=== PATIENT | female | born 1950 | race Caucasian/White ===

== ENCOUNTER 2017-01-12 16:33 | Emergency (ER) | payer MEDICARE, BC ==
--- NOTE | 2017-01-12 19:16 | EDM.PDOC ---
ED HPI GI/ABDOMINAL - General Chief Complaint: Abdominal Pain Stated Complaint: ABDOMINAL PAIN/CONSTIPATION Time Seen by Provider: 01/12/17 18:30 Source: Reports: Patient History Limitations: Reports: No limitations - History of Present Illness INITIAL COMMENTS - FREE TEXT/NARRATIVE: This lady underwent a laparoscopic hysterectomy about 5 days ago but then [place]. She feels like she is urinating out her rectum. She also complains of constipation and says she can have a bowel movement only by taking milk of magnesia or prune juice. She voids just tiny amounts. She said her surgeon told her that there was a lot of scar tissue and he was working very close to the bladder and actually put some kind of the patch on the bladder so she's wondering if there might be a connection between the bladder and the bowel. She said her bowel movements are the color of urine. Since the surgery she's eaten very little because she gets nauseated. She denies any fever. Normally she is very gassy and passes a lot of gas but is not passing any gas now. For pain she has oxycodone but is not taking any because she's afraid of constipation - Related Data Allergies/ADRs: Allergies Allergy/AdvReac Type Severity Reaction Status Date / Time bupropion HCl Allergy Other Verified 08/18/16 18:03 [From Wellbutrin] ciprofloxacin [From Cipro] Allergy Tachycardia Verified 01/12/17 17:53 cyclobenzaprine Allergy Hallucinati Verified 01/12/17 17:53 ons latex Allergy Rash Verified 08/18/16 18:03 Penicillins Allergy Rash Verified 08/18/16 18:03 codeine AdvReac Hallucinati Verified 08/18/16 18:03 ons metformin AdvReac Diarrhea Verified 08/18/16 18:03 Home Meds: Home Meds Lisinopril [Prinivil] 10 mg PO DAILY 07/25/14 [History] Pantoprazole [Protonix] 40 mg PO DAILY PRN 07/25/14 [History] Simvastatin [Zocor] 40 mg PO DAILY 07/25/14 [History] Insulin NPH/Insulin Reg,Human [Novolin 70-30] 70 units SQ BID 08/17/14 [History] Warfarin [Coumadin] 5 mg PO DAILY@1300 #30 tablet 07/20/16 [Rx] oxyCODONE 5 mg PO Q4H PRN #30 tablet 07/20/16 [Rx] Past Medical History HEENT History: Reports: Impaired vision Cardiovascular History: Reports: Blood clots/VTE/DVT, High cholesterol, Hypertension, SOB on exertion Respiratory History: Reports: Bronchitis, recurrent, PE, Pneumonia, recurrent, Sleep apnea Gastrointestinal History: Reports: Cholelithiasis, GERD [employer]CHITECT History: Reports: Dysfunctional uterine bleeding, Musculoskeletal History: Reports: Back pain, chronic, Osteoarthritis Endocrine/Metabolic History: Reports: Diabetes, type II, IDDM, Obesity/BMI 30+ Hematologic History: Reports: Anticoagulation therapy Oncologic (Cancer) History: Reports: Other (see below) Other Oncologic History: endometrial cancer Dermatologic History: Reports: Other (see below) Other Dermatologic History: growth on inner elbow-left.- this was removed. - Infectious Disease History Infectious Disease History: Reports: Chicken pox, Measles, Mumps, Other (see below) Other Infectious Disease History: Infectious hepatitis - Past Surgical History GI Surgical History: Reports: Appendectomy, Cholecystectomy, Colonoscopy, EGD, Hernia repair/other Female Surgical History: Reports: section, D&C, Hysterectomy Social & Family History - Family History Cardiac: Reports: CAD - Tobacco Use Smoking Status *Q: Never Smoker Years of Tobacco use: 50 Packs/Tins Daily: 1 Used Tobacco, but Quit: No Second Hand Smoke Exposure: Yes - Caffeine Use Caffeine Use: Reports: Coffee, Soda, Tea - Alcohol Use Days Per Week of Alcohol Use: 0 - Recreational Drug Use Recreational Drug Use: No ED ROS GENERAL - Review of Systems Review Of Systems: See Below Constitutional: Denies: fever HEENT: Reports: No symptoms Respiratory: Reports: no symptoms Cardiovascular: Reports: No symptoms Endocrine: Reports: no symptoms GI/Abdominal: Reports: Abdominal pain (Lower abdominal pain mostly suprapubic other symptoms as per), Nausea : Reports: no symptoms (See HPI) Musculoskeletal: Reports: no symptoms Skin: Reports: other (She's concerned about a little blister around one of the laparoscopy incisions) Neurological: Reports: no symptoms Psychiatric: Reports: No symptoms Hematologic/Lymphatic: Reports: no symptoms ED EXAM, GI/ABD - Physical Exam Exam: See Below Exam Limited By: No limitations General Appearance: alert, mild distress, obese Eyes: bilateral: normal appearance Ears: normal external exam Throat/Mouth: Normal inspection Neck: normal inspection Respiratory/Chest: lungs clear Cardiovascular: regular rate, rhythm GI/Abdominal: normal bowel sounds, distention (Belly maybe just a little bit distended but she's very very obese.), other (There are several laparoscopy incisions. There is a bulla approximately 1 cm in diameter near the incision in her). No: guarding, rebound Extremities: normal inspection Neurological: alert Psychiatric: normal affect Skin Exam: Warm, Dry Course - Vital Signs Last Recorded V/S: Last Vital Signs Temp 37.2 C 01/12/17 18:01 Pulse 94 01/12/17 22:16 Resp 20 01/12/17 22:16 BP 160/69 H 01/12/17 22:16 Pulse Ox 93 L 01/12/17 22:16 - Orders/Labs/Meds Orders: Active Orders 24 hr Category Date Time Status Abdomen Pelvis w Cont [CT] Stat Exams 01/12/17 18:45 Taken Iopamidol [Isovue-300 (61%)] Med 01/12/17 19:45 Active 150 ml IV . DIRECTED Sodium Chloride 0.9% [Normal Saline] 1,000 ml Med 01/12/17 20:00 Active IV ASDIRECTED Sodium Chloride 0.9% [Saline Flush] Med 01/12/17 19:44 Active 10 ml FLUSH ONETIME PRN Medication Orders Sodium Chloride (Normal Saline) 1,000 mls @ 999 mls/hr IV ASDIRECTED [facility] Last Admin: 01/12/17 20:05 Dose: 999 mls/hr Iopamidol (Isovue-300 (61%)) 150 ml IV . DIRECTED [facility] Last Admin: 01/12/17 21:14 Dose: 150 ml Sodium Chloride (Saline Flush) 10 ml FLUSH ONETIME PRN PRN Reason: PER RADIOLOGY PROTOCOL Last Admin: 01/12/17 21:14 Dose: 10 ml Admin: 01/12/17 20:04 Dose: 10 ml Labs: Laboratory Tests 01/12/17 01/12/17 Range/Units 19:03 19:03 WBC 10.3 (4.5-11.0) K/uL RBC 4.59 (3.30-5.50) M/uL Hgb 11.5 L (12.0-15.0) g/dL Hct 36.0 (36.0-48.0) % MCV 78 L (80-98) fL MCH 25 L (27-31) pg MCHC 32 (32-36) % Plt Count 276 (150-400) K/uL Neut % (Auto) 78 H (36-66) % Lymph % (Auto) 12 L (24-44) % [place] % (Auto) 8 H (2-6) % Eos % (Auto) 1 L (2-4) % Baso % (Auto) 1 (0-1) % Sodium 142 (140-148) mmol/L Potassium 3.5 L (3.6-5.2) mmol/L Chloride 104 (100-108) mmol/L Carbon Dioxide 33 H (21-32) mmol/L Anion Gap 8.5 (5.0-14.0) mmol/L BUN 9 (7-18) mg/dL Creatinine 0.6 (0.6-1.0) mg/dL Est Cr Clr Drug Dosing 72.95 mL/min Estimated GFR (MDRD) > 60 (>60) Glucose 114 H (74-106) mg/dL Calcium 8.6 (8.5-10.1) mg/dL Total Bilirubin 0.4 (0.2-1.0) mg/dL AST 26 D (15-37) U/L ALT 39 D (12-78) U/L Alkaline Phosphatase 59 (46-116) U/L Total Protein 7.1 (6.4-8.2) g/dL Albumin 2.5 L (3.4-5.0) g/dL Globulin 4.6 H (2.3-3.5) g/dL Albumin/Globulin Ratio 0.5 L (1.2-2.2) Meds: Medications Generic Name Dose Route Start Last Admin Trade Name Freq PRN Reason Stop Dose Admin Sodium Chloride 1,000 mls @ 999 mls/hr 01/12/17 20:00 01/12/17 20:05 Normal Saline IV 999 mls/hr ASDIRECTED DEANNA Administration Iopamidol 150 ml 01/12/17 19:45 01/12/17 21:14 Isovue-300 (61%) IV 150 ml . DIRECTED DEANNA Administration Sodium Chloride 10 ml 01/12/17 19:44 01/12/17 21:14 Saline Flush FLUSH 10 ml ONETIME PRN Administration PER RADIOLOGY PROTOCOL Discontinued Medications Generic Name Dose Route Start Last Admin Trade Name Kelle PRN Reason Stop Dose Admin Sodium Chloride 85 mls @ 3 mls/sec 01/12/17 19:44 01/12/17 21:14 Normal Saline IV 01/12/17 19:45 3 mls/sec ONETIME ONE Administration - Radiology Interpretation Free Text/Narrative:: CT scan showed no obvious evidence of an enterovesicular fistula. There was a small amount of fluid and some stranding in the pelvis which possibly could represent an early abscess or just post surgical changes but the patient doesn' t seem to be having those kinds of symptoms. Departure - Departure Time of Disposition: 22:29 Disposition: Home, Self-Care 01 Condition: fair Clinical Impression: Abdominal pain Forms: ED Department Discharge Additional Instructions: Takes a nausea medicine Zofran or L. ondansetron 4 mg one or 2 tablets sublingual every 6-8 hours as needed for nausea. Continue using your own oxycodone. You can take 10 mg every 4 hours. Try using an antacid such as Maalox Plus or Mylanta for stomach irritation. Both of those medicines have simethicone which is the same medicine as and Gas- X. Followup with your Dr. within the next few days. You will probably need an evaluation by a urologist to check for a connection between your bladder and your bowels. That would be called an enterovesicular fistula. - My Orders Last 24 Hours: My Active Orders 01/12/17 18:45 Abdomen Pelvis w Cont [CT] Stat 01/12/17 19:44 Sodium Chloride 0.9% [Saline Flush] 10 ml FLUSH ONETIME PRN 01/12/17 19:45 Iopamidol [Isovue-300 (61%)] 150 ml IV . DIRECTED 01/12/17 20:00 Sodium Chloride 0.9% [Normal Saline] 1,000 ml IV ASDIRECTED - Assessment/Plan Last 24 Hours: My Active Orders 01/12/17 18:45 Abdomen Pelvis w Cont [CT] Stat 01/12/17 19:44 Sodium Chloride 0.9% [Saline Flush] 10 ml FLUSH ONETIME PRN 01/12/17 19:45 Iopamidol [Isovue-300 (61%)] 150 ml IV . DIRECTED 01/12/17 20:00 Sodium Chloride 0.9% [Normal Saline] 1,000 ml IV ASDIRECTED
[2017-01-12] MEDS ORDERED: Iopamidol 612 MG/ML 150 ML Bottle IV SCH (19:45)
[2017-01-12] MEDS ORDERED: Sodium Chloride 0.9% 1,000 ML IV SCH (20:00)
[2017-01-12] MEDS: Sodium Chloride 0.9% 10 ML Syringe FLUSH PRN ×2 (20:04→21:14)
[2017-01-12 22:17] VITALS: BP 160/69
[2017-01-12] MEDS ORDERED: Alum Hydrox/Mag Hydrox/Simeth 15 ML, Lidocaine 2% 15 ML PO ONE ×2 (22:34)
== END 2017-01-12 23:03 | disposition home or self-care (01) ==
LOC: JP.ED 16:33
DX: R10.9 Unspecified abdominal pain (principal); Z90.710 Acquired absence of both cervix and uterus; Z88.6 Allergy status to analgesic agent; Z88.0 Allergy status to penicillin; Z88.1 Allergy status to other antibiotic agents; Z91.040 Latex allergy status; Z79.01 Long term (current) use of anticoagulants; Z79.4 Long term (current) use of insulin; Z79.899 Other long term (current) drug therapy; Z86.718 Personal history of other venous thrombosis and embolism; I10 Essential (primary) hypertension; E78.00 Pure hypercholesterolemia, unspecified; K21.9 Gastro-esophageal reflux disease without esophagitis; G47.30 Sleep apnea, unspecified; M19.90 Unspecified osteoarthritis, unspecified site; E11.9 Type 2 diabetes mellitus without complications; E66.9 Obesity, unspecified; Z68.30 Body mass index [BMI] 30.0-30.9, adult; Z87.891 Personal history of nicotine dependence
CPT/HCPCS: 36415; 74177; 80053; 85025; A9270; J7030; J7040; J7050; 99283; 99284-25

== ENCOUNTER 2017-02-19 11:47 | Inpatient (IN) | payer MEDICARE, BC ==
[2017-02-19] MEDS ORDERED: Acetaminophen 325 MG Tab PO ONE (12:37)
[2017-02-19] MEDS ORDERED: Sodium Chloride 0.9% 1,000 ML IV SCH ×3 (12:45→19:45)
--- NOTE | 2017-02-19 12:48 | EDM.PDOC ---
ED HPI Skin/Rash - General Chief Complaint: Skin Complaint Stated Complaint: INFECTION ON ABD Time Seen by Provider: 02/19/17 12:05 Source: Reports: Patient, Family History Limitations: Reports: No limitations - History of Present Illness INITIAL COMMENTS - FREE TEXT/NARRATIVE: pt arrived after spiking a fever at home. This came on suddenly and she developed marked chilling. She developed a tightness in the left side of her abdoman. She has been having normal bms. She has occassional burning when she passed her urine. She had a laproscopeic hysterectomy 6- 8 weeks ago. She has ca of the uterus. She has not had a cough or increased sob. Timing: Reports: better Location, Skin: Reports: abdomen, other ( The pain she had seemed in the abdomanal wall. ) Severity: moderate Known Identified Source: no - Related Data Allergies Allergy/AdvReac Type Severity Reaction Status Date / Time bupropion HCl Allergy Other Verified 02/19/17 12:10 [From Wellbutrin] latex Allergy Rash Verified 02/19/17 12:10 Penicillins Allergy Rash Verified 02/19/17 12:10 ciprofloxacin [From Cipro] AdvReac Tachycardia Verified 02/19/17 12:10 codeine AdvReac Hallucinati Verified 02/19/17 12:10 ons cyclobenzaprine AdvReac Hallucinati Verified 02/19/17 12:10 ons metformin AdvReac Diarrhea Verified 02/19/17 12:10 Home Meds: Ambulatory Orders Medication Instructions Recorded Confirmed Lisinopril [Prinivil] 10 mg PO DAILY 07/25/14 02/19/17 Pantoprazole [ProTONIX] 40 mg PO DAILY PRN 07/25/14 02/19/17 Simvastatin [Zocor] 40 mg PO DAILY 07/25/14 02/19/17 Insulin NPH/Insulin Reg,Human 70 units SQ BID 08/17/14 02/19/17 [Novolin 70-30] Warfarin [Coumadin] 5 mg PO DAILY@1300 #30 tablet 07/20/16 02/19/17 Past Medical History HEENT History: Reports: Impaired vision Cardiovascular History: Reports: Blood clots/VTE/DVT, High cholesterol, Hypertension, SOB on exertion Respiratory History: Reports: Bronchitis, recurrent, PE, Pneumonia, recurrent, Sleep apnea Gastrointestinal History: Reports: Cholelithiasis, GERD [employer] 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 - Infectious Disease History Infectious Disease History: Reports: C-difficile, Measles, Mumps Other Infectious Disease History: Infectious hepatitis - Past Surgical History GI Surgical History: Reports: Appendectomy, Cholecystectomy, Colonoscopy, EGD, Hernia repair/other Female Surgical History: Reports: section, D&C, Hysterectomy Social & Family History - Family History Cardiac: Reports: CAD - Tobacco Use Smoking Status *Q: Former Smoker Years of Tobacco use: 50 Packs/Tins Daily: 1 Used Tobacco, but Quit: Yes Month Tobacco Last Used: July 2016 Second Hand Smoke Exposure: Yes - Caffeine Use Caffeine Use: Reports: Coffee, Soda - Alcohol Use Days Per Week of Alcohol Use: 0 - Recreational Drug Use Recreational Drug Use: No ED ROS GENERAL - Review of Systems Review Of Systems: See Below Constitutional: Reports: fever, chills, malaise, fatigue HEENT: Reports: No symptoms Respiratory: Reports: No Symptoms Cardiovascular: Reports: No symptoms Endocrine: Reports: no symptoms GI/Abdominal: Reports: Abdominal pain, Other ( This seemed to be more the skin on the left side. ) : Reports: dysuria Musculoskeletal: Reports: no symptoms Skin: Reports: other ( The left side of her abdoman is red and hot. ) Neurological: Reports: No Symptoms Psychiatric: Reports: Anxiety ED EXAM, SKIN/RASH Exam: See Below Text/Narrative:: Pt arrived with shaking chills and vomiting. This hit her all of a sudden this am and she was found to have a temp of 40. She noted that the left side of her abdoman was hot and felt very tight. Exam Limited By: No limitations General Appearance: alert, anxious, moderate distress Ears: normal TMs Nose: normal inspection Throat/Mouth: Normal inspection Head: atraumatic Neck: normal inspection Respiratory/Chest: no respiratory distress Cardiovascular: regular rate, rhythm, tachycardia GI/Abdominal: other (pt does not have alot of deep tenderness in the abdoman. On the left side the skin was red, hot and very tender to the touch) Rectal (Female) Exam: Deferred Back Exam: normal inspection Extremities: normal inspection Neurological: alert, oriented, normal cognition Psychiatric: normal affect Course - Vital Signs Last Recorded V/S: Last Vital Signs Temp 39.2 C H 02/19/17 15:20 Pulse 121 H 02/19/17 15:20 Resp 22 H 02/19/17 15:20 BP 158/78 H 02/19/17 15:20 Pulse Ox 95 02/19/17 15:20 - Orders/Labs/Meds Orders: Active Orders 24 hr Category Date Time Status CULTURE BLOOD [BC] Urgent Lab 02/19/17 12:50 Received CULTURE BLOOD [BC] Urgent Lab 02/19/17 13:00 Received Iopamidol [Isovue-300 (61%)] Med 02/19/17 14:03 Active 150 ml IV . DIRECTED PRN Sodium Chloride 0.9% [Normal Saline] 1,000 ml Med 02/19/17 12:45 Active IV ASDIRECTED Sodium Chloride 0.9% [Normal Saline] 1,000 ml Med 02/19/17 15:00 Active IV ASDIRECTED Sodium Chloride 0.9% [Normal Saline] 85 ml Med 02/19/17 14:15 Active IV ASDIRECTED Blood Culture x2 Reflex Set [OM.PC] Urgent Oth 02/19/17 12:33 Ordered Medication Orders Sodium Chloride (Normal Saline) 1,000 mls @ 500 mls/hr IV ASDIRECTED DEANNA Last Admin: 02/19/17 13:27 Dose: 500 mls/hr Sodium Chloride (Normal Saline) 85 mls @ 3.5 mls/sec IV ASDIRECTED DEANNA Last Admin: 02/19/17 14:18 Dose: 3.5 mls/sec Sodium Chloride (Normal Saline) 1,000 mls @ 999 mls/hr IV ASDIRECTED DEANNA Iopamidol (Isovue-300 (61%)) 150 ml IV . DIRECTED PRN PRN Reason: RADIOLOGY EXAM Stop: 02/20/17 14:04 Last Admin: 02/19/17 14:18 Dose: 150 ml Labs: Laboratory Tests 02/19/17 02/19/17 02/19/17 Range/Units 12:50 12:50 12:50 WBC 15.7 H (4.5-11.0) K/uL RBC 5.30 (3.30-5.50) M/uL Hgb 13.6 D (12.0-15.0) g/dL Hct 41.7 (36.0-48.0) % MCV 79 L (80-98) fL MCH 26 L (27-31) pg MCHC 33 (32-36) % Plt Count 243 (150-400) K/uL Neut % (Auto) 90 H (36-66) % Lymph % (Auto) 5 L (24-44) % [place] % (Auto) 5 (2-6) % Eos % (Auto) 0 L (2-4) % Baso % (Auto) 0 (0-1) % PT (9.5-12.0) sec INR (0.80-1.20) Sodium 141 (140-148) mmol/L Potassium 4.0 (3.6-5.2) mmol/L Chloride 102 (100-108) mmol/L Carbon Dioxide 33 H (21-32) mmol/L Anion Gap 10.0 (5.0-14.0) mmol/L BUN 11 (7-18) mg/dL Creatinine 0.7 (0.6-1.0) mg/dL Est Cr Clr Drug Dosing 59.65 mL/min Estimated GFR (MDRD) > 60 (>60) Glucose 107 H (74-106) mg/dL Lactic Acid (0.4-2.0) mmol/L Calcium 8.8 (8.5-10.1) mg/dL Total Bilirubin 0.9 D (0.2-1.0) mg/dL AST 15 (15-37) U/L ALT 24 (12-78) U/L Alkaline Phosphatase 95 (46-116) U/L C-Reactive Protein 1.73 H (0.0-0.3) mg/dL Total Protein 7.5 (6.4-8.2) g/dL Albumin 3.2 L (3.4-5.0) g/dL Globulin 4.3 H (2.3-3.5) g/dL Albumin/Globulin Ratio 0.7 L (1.2-2.2) Urine Color Urine Appearance Urine pH (4.5-8.0) Ur Specific [place] (1.008-1.030) Urine Protein (NEGATIVE) mg/dL Urine Glucose (UA) (NEGATIVE) mg/dL Urine Ketones (NEGATIVE) mg/dL Urine Occult Blood (NEGATIVE) Urine Nitrite (NEGATIVE) Urine Bilirubin (NEGATIVE) Urine Urobilinogen (NORMAL) mg/dL Ur Leukocyte Esterase (NEGATIVE) Urine RBC (0-5) Urine WBC (0-5) Ur Epithelial Cells Amorphous Sediment Urine Bacteria Urine Mucus 02/19/17 02/19/17 02/19/17 Range/Units 12:50 13:59 14:06 WBC (4.5-11.0) K/uL RBC (3.30-5.50) M/uL Hgb (12.0-15.0) g/dL Hct (36.0-48.0) % MCV (80-98) fL MCH (27-31) pg MCHC (32-36) % Plt Count (150-400) K/uL Neut % (Auto) (36-66) % Lymph % (Auto) (24-44) % [place] % (Auto) (2-6) % Eos % (Auto) (2-4) % Baso % (Auto) (0-1) % PT 17.2 H (9.5-12.0) sec INR 1.60 H (0.80-1.20) Sodium (140-148) mmol/L Potassium (3.6-5.2) mmol/L Chloride (100-108) mmol/L Carbon Dioxide (21-32) mmol/L Anion Gap (5.0-14.0) mmol/L BUN (7-18) mg/dL Creatinine (0.6-1.0) mg/dL Est Cr Clr Drug Dosing mL/min Estimated GFR (MDRD) (>60) Glucose (74-106) mg/dL Lactic Acid 2.6 H (0.4-2.0) mmol/L Calcium (8.5-10.1) mg/dL Total Bilirubin (0.2-1.0) mg/dL AST (15-37) U/L ALT (12-78) U/L Alkaline Phosphatase (46-116) U/L C-Reactive Protein (0.0-0.3) mg/dL Total Protein (6.4-8.2) g/dL Albumin (3.4-5.0) g/dL Globulin (2.3-3.5) g/dL Albumin/Globulin Ratio (1.2-2.2) Urine Color Yellow Urine Appearance Clear Urine pH 8.0 (4.5-8.0) Ur Specific [place] 1.015 (1.008-1.030) Urine Protein Negative (NEGATIVE) mg/dL Urine Glucose (UA) Normal (NEGATIVE) mg/dL Urine Ketones Negative (NEGATIVE) mg/dL Urine Occult Blood Negative (NEGATIVE) Urine Nitrite Negative (NEGATIVE) Urine Bilirubin Negative (NEGATIVE) Urine Urobilinogen Normal (NORMAL) mg/dL Ur Leukocyte Esterase Negative (NEGATIVE) Urine RBC 0-5 (0-5) Urine WBC 0-5 (0-5) Ur Epithelial Cells Rare Amorphous Sediment Not seen Urine Bacteria Few Urine Mucus Not seen Meds: Medications Generic Name Dose Route Start Last Admin Trade Name Freq PRN Reason Stop Dose Admin Sodium Chloride 1,000 mls @ 500 mls/hr 02/19/17 12:45 02/19/17 13:27 Normal Saline IV 500 mls/hr ASDIRECTED DEANNA Administration Sodium Chloride 85 mls @ 3.5 mls/sec 02/19/17 14:15 02/19/17 14:18 Normal Saline IV 3.5 mls/sec ASDIRECTED DEANNA Administration Sodium Chloride 1,000 mls @ 999 mls/hr 02/19/17 15:00 Normal Saline IV ASDIRECTED DEANNA Iopamidol 150 ml 02/19/17 14:03 02/19/17 14:18 Isovue-300 (61%) IV 02/20/17 14:04 150 ml . DIRECTED PRN Administration RADIOLOGY EXAM Discontinued Medications Generic Name Dose Route Start Last Admin Trade Name Freq PRN Reason Stop Dose Admin Acetaminophen 650 mg 02/19/17 12:37 02/19/17 13:28 Tylenol PO 02/19/17 12:38 650 mg NOW ONE Administration Cefazolin Sodium/Dextrose 2 gm 50 mls @ 100 mls/hr 02/19/17 14:49 02/19/17 15 :18 / Premix IV 02/19/17 15:18 100 mls/hr ONETIME ONE Administration Ondansetron HCl 4 mg 02/19/17 13:21 02/19/17 13:29 Zofran IVPUSH 02/19/17 13:22 4 mg ONETIME ONE Administration - Re-Assessments/Exams Free Text/Narrative Re-Assessment/Exam: 02/19/17 15:33 Pt had a cat scan of the abdoman which was neg. Her lactic acid is 2.6. fluids were startyed and a 2nd liter was started. She was given ancef 2 gm iv. She will be admitted to the unit. Departure - Departure Time of Disposition: 15:35 Disposition: Admitted As Inpatient 66 Condition: fair Clinical Impression: Sepsis, Cellulitis of abdominal wall, Cancer of uterus Referrals: Jim Rai MD [Primary Care Provider] - Forms: ED Department Discharge Care Plan Goals: admit to Dr ruff. - My Orders Last 24 Hours: My Active Orders 02/19/17 12:33 Blood Culture x2 Reflex Set [OM.PC] Urgent 02/19/17 12:45 Sodium Chloride 0.9% [Normal Saline] 1,000 ml IV ASDIRECTED 02/19/17 12:50 CULTURE BLOOD [BC] Urgent 02/19/17 13:00 CULTURE BLOOD [BC] Urgent 02/19/17 14:03 Iopamidol [Isovue-300 (61%)] 150 ml IV . DIRECTED PRN 02/19/17 14:15 Sodium Chloride 0.9% [Normal Saline] 85 ml IV ASDIRECTED 02/19/17 15:00 Sodium Chloride 0.9% [Normal Saline] 1,000 ml IV ASDIRECTED - Assessment/Plan Last 24 Hours: My Active Orders 02/19/17 12:33 Blood Culture x2 Reflex Set [OM.PC] Urgent 02/19/17 12:45 Sodium Chloride 0.9% [Normal Saline] 1,000 ml IV ASDIRECTED 02/19/17 12:50 CULTURE BLOOD [BC] Urgent 02/19/17 13:00 CULTURE BLOOD [BC] Urgent 02/19/17 14:03 Iopamidol [Isovue-300 (61%)] 150 ml IV . DIRECTED PRN 02/19/17 14:15 Sodium Chloride 0.9% [Normal Saline] 85 ml IV ASDIRECTED 02/19/17 15:00 Sodium Chloride 0.9% [Normal Saline] 1,000 ml IV ASDIRECTED
[2017-02-19] MEDS ORDERED: Ondansetron 4 MG/2 ML SDV IVPUSH ONE (13:21)
[2017-02-19] MEDS ORDERED: Iopamidol 612 MG/ML 150 ML Bottle IV PRN (14:03)
--- NOTE | 2017-02-19 14:23 | CR ---
Heart size upper limits of normal. Pulmonary vasculature upper limits of normal. Obscuration left he midiaphragm. This could be due to atelectasis infiltrate and/or small pleural effusion.
[2017-02-19] MEDS ORDERED: ceFAZolin 2 GM in Premix Bag 1 BAG IV ONE (14:49)
--- NOTE | 2017-02-19 14:53 | CT ---
CT abdomen and pelvis. Indication: Pain. Comparison: 01/12/2017. Total DLP 2181 Finds: Minimal atelectasis in the lung bases. Fatty infiltration of the liver with hepatomegaly. Cho lecystectomy change. Spleen within normal limits. Left kidney enhances normally. No hydronephrosis. No hydronephrosis right kidney. Normal enhancement right kidney. No dilated loops of small bowel. Bl adder unremarkable. Prior hysterectomy change. Moderate fecal residual. Atherosclerotic nonaneurysma l aorta. There are a few air-fluid levels within the small bowel however and fluid. No dilatation. T here is a mesh hernia repair. There is mesenteric fluid and edema which is mild.. This is decreased in the interval. The fluid collection in the cul-de-sac has resolved. Probably hemangioma at T11. Th e appendix is nonvisualized. Impression: 1. A few air-fluid levels within small bowel loops with fluid. No dilatation. Correlate for gastroen teritis. 2. Mild amount of mesenteric edema and fluid which has decreased in the interval. This may be postop erative.
--- NOTE | 2017-02-19 16:06 | PCM.HP ---
H&P History of Present Illness - General Date of Service: 02/19/17 Admit Problem/Dx: Admission Diagnosis/Problem Admission Diagnosis/Problem Cellulitis Source of Information: Patient, Family, Old records, Provider, RN notes reviewed History Limitations: Reports: No limitations - History of Present Illness Initial Comments - Free Text/Narative: This patient is a 66-year-old woman who is admitted through the emergency department with weakness, fever, nausea and vomiting, secondary to abdominal wall cellulitis and sepsis. She has a complicated past medical history including recent deep vein thrombosis and pulmonary emboli. Anticoagulation was complicated by vaginal bleeding and on evaluation was found to have a uterine mass. She has undergone hysterectomy and was found to have uterine carcinoma. She also has a history of previous lymphoma, with no evidence of recurrence. She was feeling well until early this morning when she noted pain in her left lower quadrant abdominal wall. This was associated with fever, chills, weakness, nausea and vomiting. On evaluation in the emergency department she has an area of erythema with increased warmth and tenderness in her left lower quadrant of the abdominal wall. White blood cell count is elevated and associated with tachycardia, fever, and elevation in lactic acid. Pelvic Pain Score (Numeric/FACES): 2 - Related Data Allergies/Adverse Reactions: Allergies Allergy/AdvReac Type Severity Reaction Status Date / Time bupropion HCl Allergy Other Verified 02/19/17 12:10 [From Wellbutrin] latex Allergy Rash Verified 02/19/17 12:10 Penicillins Allergy Rash Verified 02/19/17 12:10 ciprofloxacin [From Cipro] AdvReac Tachycardia Verified 02/19/17 12:10 codeine AdvReac Hallucinati Verified 02/19/17 12:10 ons cyclobenzaprine AdvReac Hallucinati Verified 02/19/17 12:10 ons metformin AdvReac Diarrhea Verified 02/19/17 12:10 Home Medications: Home Meds Lisinopril [Prinivil] 10 mg PO DAILY 07/25/14 [History] Pantoprazole [ProTONIX] 40 mg PO DAILY PRN 07/25/14 [History] Simvastatin [Zocor] 40 mg PO DAILY 07/25/14 [History] Insulin NPH/Insulin Reg,Human [Novolin 70-30] 70 units SQ BID 08/17/14 [History] Warfarin [Coumadin] 5 mg PO DAILY@1300 #30 tablet 07/20/16 [Rx] Past Medical History HEENT History: Reports: Impaired vision Cardiovascular History: Reports: Blood clots/VTE/DVT, High cholesterol, Hypertension, SOB on exertion Respiratory History: Reports: Bronchitis, recurrent, PE, Pneumonia, recurrent, Sleep apnea Gastrointestinal History: Reports: Cholelithiasis, GERD TUBE CARRIER History: Reports: Dysfunctional uterine bleeding, Musculoskeletal History: Reports: Back pain, chronic, Osteoarthritis Endocrine/Metabolic History: Reports: Diabetes, type II, IDDM, Obesity/BMI 30+ Hematologic History: Reports: Anticoagulation therapy Oncologic (Cancer) History: Reports: Other (see below) Other Oncologic History: endometrial cancer Dermatologic History: Reports: Other (see below) Other Dermatologic History: growth on inner elbow-left.- this was removed. - Infectious Disease History Infectious Disease History: Reports: C-difficile, Measles, Mumps Other Infectious Disease History: Infectious hepatitis - Past Surgical History GI Surgical History: Reports: Appendectomy, Cholecystectomy, Colonoscopy, EGD, Hernia repair/other Female Surgical History: Reports: section, D&C, Hysterectomy Social & Family History - Family History Cardiac: Reports: CAD - Tobacco Use Smoking Status *Q: Former Smoker Years of Tobacco use: 50 Packs/Tins Daily: 1 Used Tobacco, but Quit: Yes Month Tobacco Last Used: July 2016 Second Hand Smoke Exposure: Yes - Caffeine Use Caffeine Use: Reports: Coffee, Soda - Alcohol Use Days Per Week of Alcohol Use: 0 - Recreational Drug Use Recreational Drug Use: No H&P Review of Systems - Review of Systems: Review Of Systems: See Below General: Reports: fever, chills, weakness, diaphoresis, decreased appetite HEENT: Reports: no symptoms Pulmonary: Reports: No Symptoms Cardiovascular: Reports: no symptoms Gastrointestinal: Reports: Anorexia, Nausea, Vomiting, Other (Pain and tenderness in the abdominal wall). Denies: Abdominal pain, Constipation, Diarrhea, Difficulty swallowing, Distension, Flatus Genitourinary: Reports: no symptoms Musculoskeletal: Reports: back pain Skin: Reports: erythema, other (Tenderness abdominal wall in the area of erythema) Psychiatric: Reports: no symptoms Neurological: Reports: No Symptoms Hematologic/Lymphatic: Reports: no symptoms Immunologic: Reports: no symptoms Exam - Exam Exam: See Below - Vital Signs Vital Signs: Last Vital Signs Temp 102.6 F H 02/19/17 15:20 Pulse 121 H 04/19/17 15:20 Resp 22 H 02/19/17 15:20 BP 158/78 H 02/19/17 15:20 Pulse Ox 95 02/19/17 15:20 Weight: 326 lb 4.546 oz - Exam Quality Assessment: DVT prophylaxis General: alert, oriented, cooperative, moderate distress HEENT: Conjunctiva clear, EOMI, Hearing intact, Mucosa moist & pink, Nares patent, Normal nasal septum, Posterior pharynx clear, Pupils equal, Pupils reactive Neck: supple, trachea midline, +2 carotid pulse wo bruit Lungs: Clear to auscultation, Normal respiratory effort Cardiovascular: regular rhythm, normal S1, normal S2, tachycardia. No: irregular rhythm, bradycardia, systolic murmur, diastolic murmur Abdomen: normal bowel sounds, soft, other (Erythema and tenderness to palpation in the skin of the left lower quadrant) Extremities: normal inspection. No: edema Skin: warm, dry, intact Neurological: cranial nerves intact, strength equal bilateral, normal speech, normal tone, sensation intact. No: focal deficit Neuro Extensive - Mental Status: alert, oriented x3, normal mood/affect, normal cognition, memory intact - Patient Data Result Diagrams: 02/19/17 12:50 02/19/17 12:50 *Q Meaningful Use (ADM) - VTE *Q VTE Criteria *Q: - VTE Risk Assess *Q Each Risk Factor Represents 1 Point: Sepsis, Less than 1 Month Total Score 1 Point Risk Factors: 1 Each Risk Factor Represents 2 Points: Age 60 - 74 Years, Previous Malignancy Total Score 2 Point Risk Factors: 4 Each Risk Factor Represents 3 Points: BMI Greater than 50 (Venous Stasis Syndrome), History Superficial Venous Thrombosis, DVT or PE Total Score 3 Point Risk Factors: 6 Each Risk Factor Represents 5 Points: None Total Score 5 Point Risk Factors: 0 Venous Thromboembolism Risk Factor Score *Q: 11 - Stroke *Q Stroke Criteria *Q: - AMI *Q AMI Criteria *Q: Problem List Initiated/Reviewed/Updated: Yes Orders Last 24hrs: Active Orders 24 hr Category Date Time Status Resuscitation Status Routine Resus Stat 02/19/17 15:36 Ordered Medication Orders Sodium Chloride (Normal Saline) 1,000 mls @ 500 mls/hr IV ASDIRECTED DEANNA Last Admin: 02/19/17 13:27 Dose: 500 mls/hr Sodium Chloride (Normal Saline) 85 mls @ 3.5 mls/sec IV ASDIRECTED DEANNA Last Admin: 02/19/17 14:18 Dose: 3.5 mls/sec Sodium Chloride (Normal Saline) 1,000 mls @ 999 mls/hr IV ASDIRECTED DEANNA Iopamidol (Isovue-300 (61%)) 150 ml IV . DIRECTED PRN PRN Reason: RADIOLOGY EXAM Stop: 02/20/17 14:04 Last Admin: 02/19/17 14:18 Dose: 150 ml Assessment/Plan Comment:: ASSESSMENT AND PLAN SEPSIS SECONDARY TO ABDOMINAL WALL CELLULITIS-occurring in this 66-year-old woman with a known history of type 2 diabetes mellitus. Area of cellulitis is under the pannus in the left lower quadrant of the abdominal wall. Symptoms came on abruptly and she has become acutely ill within a relatively short period of time. CT scan of the abdomen and pelvis shows no evidence of fluid collection for possible abscess in the abdominal wall. There is evidence of sepsis with significant fever, tachycardia, and elevation in lactic acid level. -Admit to the intensive care unit for close observation, monitoring, and management. -Blood cultures are pending -Aggressive IV fluid replacement for management of sepsis -Because of diabetes will begin expanded IV antibiotic coverage with vancomycin and meropenem TYPE 2 DIABETES MELLITUS -Continue home insulins regimen -4 times a day glucometers -Low-dose sliding scale NovoLog RECENT HISTORY OF DEEP VEIN THROMBOSIS AND PULMONARY EMBOLISM-current INR obtained today in the emergency Department is subtherapeutic -Lovenox 150 mg subcutaneous every 12 hours until INR is within therapeutic range -Warfarin 7.5 mg by mouth today -INR in a.m. MAINTENANCE ISSUES -DVT prophylaxis; current therapeutic dose of Lovenox should provide adequate DVT prophylaxis -GI prophylaxis; continue outpatient PPI therapy -Luis catheter; none indicated -Nutrition; consistent carb diet -Nicotine dependence; not required CODE STATUS-FULL CODE ADMISSION STATUS-patient will be admitted to inpatient status, expect at least a 2 night hospital stay for evaluation and management of problems as outlined above. At the time of this admission I do not reasonably expected evaluation and management of this problem will require more than a 96 hour hospital stay. DISPOSITION-anticipate discharge to home after the hospital stay. PRIMARY CARE PROVIDER-Dr. Rai
[2017-02-19] MEDS ORDERED: Magnesium Hydroxide 400 MG/5 ML Susp 30 ML Cup PO PRN (16:44)
[2017-02-19] MEDS ORDERED: Polyethylene Glycol 3350 Powder 17 GM Packet PO PRN (16:44)
[2017-02-19] MEDS ORDERED: Glucose Gel 15 GM in 37.5 GM Tube PO PRN (16:44)
[2017-02-19] MEDS ORDERED: Vancomycin 1 GM SDV IV SCH (16:44)
[2017-02-19] MEDS ORDERED: Docusate Sodium 100 MG Cap PO PRN (16:44)
[2017-02-19] MEDS ORDERED: Pantoprazole 40 MG Tab.CR PO PRN (16:44)
[2017-02-19] MEDS ORDERED: Albuterol 0.083% 2.5 MG/3 ML Neb Soln NEB PRN (16:44)
[2017-02-19] MEDS ORDERED: Enoxaparin 120 MG/0.8 ML Syringe SUBCUT SCH (16:44)
[2017-02-19] MEDS ORDERED: 50% Dextrose in Water 50 ML Syringe IV PRN (16:44)
[2017-02-19] MEDS ORDERED: Sodium Chloride 0.9% 500 ML IV SCH (17:15)
[2017-02-19] MEDS: oxyCODONE 5 MG Tab PO PRN (17:28)
[2017-02-19] MEDS: Enoxaparin 80 MG/0.8 ML Syringe SUBCUT SCH (17:32)
[2017-02-19] MEDS ORDERED: Meropenem 1 GM in Sodium Chloride 0.9% 100 ML IV SCH (18:00)
[2017-02-19] MEDS ORDERED: Warfarin 2.5 MG Tab PO ONE (18:00)
[2017-02-19] MEDS: Acetaminophen 325 MG Tab PO PRN (20:35)
[2017-02-19] MEDS: Insulin NPH/Insulin Regular,Human 70-30 100 Units/ML 10 ML Vial SUBCUT SCH (20:57)
[2017-02-19] MEDS: Insulin Aspart 100 Units/ML 3 ML Pen SUBCUT SCH (21:00)
[2017-02-19] MEDS: Ondansetron 4 MG/2 ML SDV IV PRN (21:04)
[2017-02-20] MEDS: oxyCODONE 5 MG Tab PO PRN ×3 (01:15→21:04)
[2017-02-20] MEDS: Acetaminophen 325 MG Tab PO PRN ×3 (01:19→21:04)
[2017-02-20] MEDS: Enoxaparin 80 MG/0.8 ML Syringe SUBCUT SCH (05:32)
[2017-02-20] MEDS: Insulin Aspart 100 Units/ML 3 ML Pen SUBCUT SCH ×3 (08:46→21:11)
[2017-02-20] MEDS: Insulin NPH/Insulin Regular,Human 70-30 100 Units/ML 10 ML Vial SUBCUT SCH ×2 (08:47→21:09)
[2017-02-20] MEDS: Lisinopril 10 MG Tab PO SCH (08:48)
[2017-02-20] MEDS: Simvastatin 20 MG Tab PO SCH (08:48)
[2017-02-20] MEDS ORDERED: Potassium Chloride 20 MEQ Tab.ER PO ONE (09:00)
--- NOTE | 2017-02-20 10:41 | PCM.PN ---
- General Info Date of Service: 02/20/17 Functional Status: Reports: pain controlled, tolerating diet, urinating - Review of Systems General: Reports: Fever, Weakness. Denies: Chills Pulmonary: Reports: no symptoms Cardiovascular: Reports: No Symptoms Gastrointestinal: Reports: No symptoms Skin: Reports: other (Abdominal wall cellulitis) Systems Review Comment:: This patient has improved significantly since admission, heart rate has come down and lactic acid level has normalized. Fever curve also has improved and she is experiencing much less pain in the area of cellulitis in the abdominal wall. Currently tolerating a diet and urinating without difficulty. - Patient Data Vitals - most recent: Last Vital Signs Temp 98.7 F 02/20/17 08:00 Pulse 84 02/20/17 08:00 Resp 20 02/20/17 08:00 BP 118/56 L 02/20/17 08:48 Pulse Ox 90 L 02/20/17 08:00 Weight - most recent: 325 lb I&O - last 24 hours: Intake & Output 02/19/17 02/20/17 02/20/17 22:59 06:59 14:59 Intake Total 600 1517 400 Output Total 900 700 Balance -300 817 400 Lab Results last 24 hrs: Laboratory Results - last 24 hr 02/19/17 02/20/17 02/20/17 Range/Units 20:00 05:00 05:11 WBC 10.3 (4.5-11.0) K/uL RBC 4.94 (3.30-5.50) M/uL Hgb 12.5 (12.0-15.0) g/dL Hct 39.3 (36.0-48.0) % MCV 80 (80-98) fL MCH 25 L (27-31) pg MCHC 32 (32-36) % Plt Count 219 (150-400) K/uL Neut % (Auto) 87 H (36-66) % Lymph % (Auto) 7 L (24-44) % [place] % (Auto) 6 (2-6) % Eos % (Auto) 0 L (2-4) % Baso % (Auto) 0 (0-1) % PT (9.5-12.0) sec INR (0.80-1.20) Sodium (140-148) mmol/L Potassium (3.6-5.2) mmol/L Chloride (100-108) mmol/L Carbon Dioxide (21-32) mmol/L Anion Gap (5.0-14.0) mmol/L BUN (7-18) mg/dL Creatinine (0.6-1.0) mg/dL Est Cr Clr Drug Dosing mL/min Estimated GFR (MDRD) (>60) Glucose (74-106) mg/dL Lactic Acid 1.4 1.1 (0.4-2.0) mmol/L Calcium (8.5-10.1) mg/dL Total Bilirubin (0.2-1.0) mg/dL AST (15-37) U/L ALT (12-78) U/L Alkaline Phosphatase (46-116) U/L Total Protein (6.4-8.2) g/dL Albumin (3.4-5.0) g/dL Globulin (2.3-3.5) g/dL Albumin/Globulin Ratio (1.2-2.2) 02/20/17 02/20/17 Range/Units 05:11 05:11 WBC (4.5-11.0) K/uL RBC (3.30-5.50) M/uL Hgb (12.0-15.0) g/dL Hct (36.0-48.0) % MCV (80-98) fL MCH (27-31) pg MCHC (32-36) % Plt Count (150-400) K/uL Neut % (Auto) (36-66) % Lymph % (Auto) (24-44) % [place] % (Auto) (2-6) % Eos % (Auto) (2-4) % Baso % (Auto) (0-1) % PT 21.8 H (9.5-12.0) sec INR 2.01 H (0.80-1.20) Sodium 141 (140-148) mmol/L Potassium 3.5 L (3.6-5.2) mmol/L Chloride 103 (100-108) mmol/L Carbon Dioxide 32 (21-32) mmol/L Anion Gap 9.5 (5.0-14.0) mmol/L BUN 12 (7-18) mg/dL Creatinine 0.6 (0.6-1.0) mg/dL Est Cr Clr Drug Dosing 69.60 mL/min Estimated GFR (MDRD) > 60 (>60) Glucose 105 (74-106) mg/dL Lactic Acid (0.4-2.0) mmol/L Calcium 8.1 L (8.5-10.1) mg/dL Total Bilirubin 0.9 (0.2-1.0) mg/dL AST 15 (15-37) U/L ALT 22 (12-78) U/L Alkaline Phosphatase 81 (46-116) U/L Total Protein 6.6 (6.4-8.2) g/dL Albumin 2.7 L (3.4-5.0) g/dL Globulin 3.9 H (2.3-3.5) g/dL Albumin/Globulin Ratio 0.7 L (1.2-2.2) Med Orders - Current: Current Medications Acetaminophen (Tylenol) 650 mg PO Q4H PRN PRN Reason: Pain (Mild 1-3)/fever Last Admin: 02/20/17 06:42 Dose: 650 mg Albuterol (Proventil Neb Soln) 2.5 mg NEB Q4H PRN PRN Reason: Shortness Of Breath/wheezing Dextrose (Glutose 15) 15 gm PO ONETIME PRN PRN Reason: Hypoglycemia Dextrose/Water (Dextrose 50% In Water) 50 ml IV ONETIME PRN PRN Reason: Hypoglycemia Docusate Sodium (Colace) 100 mg PO BID PRN PRN Reason: Constipation Enoxaparin Sodium (Lovenox) 150 mg SUBCUT Q12H [facility] Last Admin: 02/20/17 05:32 Dose: 150 mg Meropenem 1 gm/ Sodium (Chloride) 50 mls @ 100 mls/hr IV Q8H [facility] Last Admin: 02/20/17 10:19 Dose: 100 mls/hr Vancomycin HCl 2 gm/ Sodium (Chloride) 250 mls @ 167 mls/hr IV Q12H [facility] Insulin Aspart (Novolog) 0 unit SUBCUT ASDIRECTED [facility] PRN Reason: Protocol Last Admin: 02/20/17 08:46 Dose: 1 units Insulin Human Isoph/Insulin Regular (Novolin 70-30) 70 unit SUBCUT BID [facility] Last Admin: 02/20/17 08:47 Dose: 70 units Lisinopril (Prinivil) 10 mg PO DAILY [facility] Last Admin: 02/20/17 08:48 Dose: 10 mg Magnesium Hydroxide (Milk Of Magnesia) 30 ml PO Q12H PRN PRN Reason: Constipation Ondansetron HCl (Zofran) 4 mg IV Q4H PRN PRN Reason: Nausea/Vomiting Last Admin: 02/19/17 21:04 Dose: 4 mg Oxycodone HCl (Oxycodone) 10 mg PO Q4H PRN PRN Reason: Pain (moderate 4-6) Last Admin: 02/20/17 06:41 Dose: 10 mg Pantoprazole Sodium (Protonix) 40 mg PO DAILY PRN PRN Reason: Heartburn Last Admin: 02/20/17 08:53 Dose: 40 mg Polyethylene Glycol (Miralax) 17 gm PO DAILY PRN PRN Reason: Constipation Simvastatin (Zocor) 40 mg PO DAILY [facility] Last Admin: 02/20/17 08:48 Dose: 40 mg Sodium Chloride (Saline Flush) 10 ml FLUSH ASDIRECTED PRN PRN Reason: Keep Vein Open Discontinued Medications Acetaminophen (Tylenol) 650 mg PO NOW ONE Stop: 02/19/17 12:38 Last Admin: 02/19/17 13:28 Dose: 650 mg Sodium Chloride (Normal Saline) 1,000 mls @ 500 mls/hr IV ASDIRECTED [facility] Last Admin: 02/19/17 13:27 Dose: 500 mls/hr Sodium Chloride (Normal Saline) 85 mls @ 3.5 mls/sec IV ASDIRECTED [facility] Last Admin: 02/19/17 14:18 Dose: 3.5 mls/sec Sodium Chloride (Normal Saline) 1,000 mls @ 999 mls/hr IV ASDIRECTED [facility] Cefazolin Sodium/Dextrose 2 gm (/ Premix) 50 mls @ 100 mls/hr IV ONETIME ONE Stop: 02/19/17 15:18 Last Admin: 02/19/17 15:18 Dose: 100 mls/hr Sodium Chloride (Normal Saline) 500 mls @ 500 mls/hr IV .BOLUS [facility] Stop: 02/19/17 17:16 Sodium Chloride (Normal Saline) 1,000 mls @ 125 mls/hr IV ASDIRECTED [facility] Last Admin: 02/20/17 02:39 Dose: 125 mls/hr Vancomycin HCl 2 gm/ Sodium (Chloride) 250 mls @ 167 mls/hr IV Q12H [facility] Last Admin: 02/20/17 06:37 Dose: 167 mls/hr Iopamidol (Isovue-300 (61%)) 150 ml IV . DIRECTED PRN PRN Reason: RADIOLOGY EXAM Stop: 02/20/17 14:04 Last Admin: 02/19/17 14:18 Dose: 150 ml Ondansetron HCl (Zofran) 4 mg IVPUSH ONETIME ONE Stop: 02/19/17 13:22 Last Admin: 02/19/17 13:29 Dose: 4 mg Potassium Chloride (Klor-Con M20) 40 meq PO ONETIME ONE Stop: 02/20/17 09:01 Last Admin: 02/20/17 08:47 Dose: 40 meq Vancomycin HCl (Vancomycin) 1 gm IV .PHARMACY TO DOSE [facility] Warfarin Sodium (Coumadin) 7.5 mg PO ONETIME ONE Stop: 02/19/17 18:01 Last Admin: 02/19/17 17:31 Dose: 2.5 mg - Exam Quality Assessment: DVT prophylaxis General: alert, oriented, cooperative Lungs: Clear to auscultation, Normal respiratory effort Cardiovascular: Regular Rate, Regular Rhythm Abdomen: bowel sounds present, soft, no tenderness, no distension Extremities: no edema Skin: other (Persistent erythema and tenderness to palpation in the area of cellulitis left lower quadrant abdominal wall) - Problem List Review Problem List Initiated/Reviewed/Updated: Yes - My Orders Last 24 Hours: My Active Orders 02/19/17 15:36 Resuscitation Status Routine 02/19/17 16:44 Patient Status [ADT] Routine Blood Glucose Check, Bedside [RC] QIDACANDBED Communication Order [RC] ASDIRECTED Diabetes Education [RC] Click to Edit Intake and Output [RC] QSHIFT Notify Provider Vital Signs [RC] ASDIRECTED Notify Provider [RC] PRN Oxygen Therapy [RC] Q12H Peripheral IV Care [RC] . DIRECTED RT Aerosol Therapy [RC] ASDIRECTED Up With Assistance [RC] ASDIRECTED VTE/DVT Education [RC] Per Unit Routine Vital Signs [RC] Q4H Acetaminophen [Tylenol] 650 mg PO Q4H PRN Albuterol [Proventil Neb Soln] 2.5 mg NEB Q4H PRN Dextrose 50% in Water 50 ml IV ONETIME PRN Dextrose [Glutose 15] 15 gm PO ONETIME PRN Docusate Sodium [Colace] 100 mg PO BID PRN Insulin Aspart [NovoLOG] See Protocol SUBCUT ASDIRECTED Magnesium Hydroxide [Milk of Magnesia] 30 ml PO Q12H PRN Ondansetron [Zofran] 4 mg IV Q4H PRN Polyethylene Glycol 3350 [MiraLAX] 17 gm PO DAILY PRN Sodium Chloride 0.9% [Saline Flush] 10 ml FLUSH ASDIRECTED PRN oxyCODONE 10 mg PO Q4H PRN Peripheral IV Insertion Adult [OM.PC] Routine VTE Pharmacological Contraindications [AST] Per Unit Routine 02/19/17 18:00 Enoxaparin [Lovenox] 150 mg SUBCUT Q12H Meropenem [Merrem] 1 gm Sodium Chloride 0.9% [Normal Saline] 50 ml IV Q8H 02/19/17 Lunch Consistent Carbohydrate Diet [DIET] 02/20/17 10:36 Convert IV to Saline Lock [OM.PC] Routine 02/20/17 10:37 Warfarin [Coumadin] 7.5 mg PO ONETIME ONE 02/20/17 16:30 GLUCOSE POC LAB TO COLLECT [POC] QIDACANDBED 02/20/17 18:30 Vancomycin 2 gm Sodium Chloride 0.9% [Normal Saline] 250 ml IV Q12H 02/20/17 21:00 GLUCOSE POC LAB TO COLLECT [POC] QIDACANDBED 02/21/17 05:00 BASIC METABOLIC PANEL,BMP [CHEM] Timed INR,PT,PROTHROMBIN TIME [COAG] Timed 02/21/17 06:00 VANCOMYCIN TROUGH [CHEM] Timed 02/21/17 07:30 GLUCOSE POC LAB TO COLLECT [POC] QIDACANDBED 02/21/17 11:30 GLUCOSE POC LAB TO COLLECT [POC] QIDACANDBED 02/21/17 16:30 GLUCOSE POC LAB TO COLLECT [POC] QIDACANDBED 02/21/17 21:00 GLUCOSE POC LAB TO COLLECT [POC] QIDACANDBED 02/22/17 07:30 GLUCOSE POC LAB TO COLLECT [POC] QIDACANDBED 02/22/17 11:30 GLUCOSE POC LAB TO COLLECT [POC] QIDACANDBED 02/22/17 16:30 GLUCOSE POC LAB TO COLLECT [POC] QIDACANDBED 02/22/17 21:00 GLUCOSE POC LAB TO COLLECT [POC] QIDACANDBED 02/23/17 07:30 GLUCOSE POC LAB TO COLLECT [POC] QIDACANDBED 02/23/17 11:30 GLUCOSE POC LAB TO COLLECT [POC] QIDACANDBED 02/23/17 16:30 GLUCOSE POC LAB TO COLLECT [POC] QIDACANDBED 02/23/17 21:00 GLUCOSE POC LAB TO COLLECT [POC] QIDACANDBED 02/24/17 07:30 GLUCOSE POC LAB TO COLLECT [POC] QIDACANDBED 02/24/17 11:30 GLUCOSE POC LAB TO COLLECT [POC] QIDACANDBED 02/24/17 16:30 GLUCOSE POC LAB TO COLLECT [POC] QIDACANDBED 02/24/17 21:00 GLUCOSE POC LAB TO COLLECT [POC] QIDACANDBED 02/25/17 07:30 GLUCOSE POC LAB TO COLLECT [POC] QIDACANDBED 02/25/17 11:30 GLUCOSE POC LAB TO COLLECT [POC] QIDACANDBED 02/25/17 16:30 GLUCOSE POC LAB TO COLLECT [POC] QIDACANDBED 02/25/17 21:00 GLUCOSE POC LAB TO COLLECT [POC] QIDACANDBED 02/26/17 07:30 GLUCOSE POC LAB TO COLLECT [POC] QIDACANDBED 02/26/17 11:30 GLUCOSE POC LAB TO COLLECT [POC] QIDACANDBED 02/26/17 16:30 GLUCOSE POC LAB TO COLLECT [POC] QIDACANDBED 02/26/17 21:00 GLUCOSE POC LAB TO COLLECT [POC] QIDACANDBED 02/27/17 07:30 GLUCOSE POC LAB TO COLLECT [POC] QIDACANDBED 02/27/17 11:30 GLUCOSE POC LAB TO COLLECT [POC] QIDACANDBED 02/27/17 16:30 GLUCOSE POC LAB TO COLLECT [POC] QIDACANDBED 02/27/17 21:00 GLUCOSE POC LAB TO COLLECT [POC] QIDACANDBED 02/28/17 07:30 GLUCOSE POC LAB TO COLLECT [POC] QIDACANDBED 02/28/17 11:30 GLUCOSE POC LAB TO COLLECT [POC] QIDACANDBED 02/28/17 16:30 GLUCOSE POC LAB TO COLLECT [POC] QIDACANDBED 02/28/17 21:00 GLUCOSE POC LAB TO COLLECT [POC] QIDACANDBED 03/01/17 07:30 GLUCOSE POC LAB TO COLLECT [POC] QIDACANDBED 03/01/17 11:30 GLUCOSE POC LAB TO COLLECT [POC] QIDACANDBED 03/01/17 16:30 GLUCOSE POC LAB TO COLLECT [POC] QIDACANDBED 03/01/17 21:00 GLUCOSE POC LAB TO COLLECT [POC] QIDACANDBED 03/02/17 07:30 GLUCOSE POC LAB TO COLLECT [POC] QIDACANDBED 03/02/17 11:30 GLUCOSE POC LAB TO COLLECT [POC] QIDACANDBED 03/02/17 16:30 GLUCOSE POC LAB TO COLLECT [POC] QIDACANDBED - Plan Plan:: ASSESSMENT AND PLAN SEPSIS SECONDARY TO ABDOMINAL WALL CELLULITIS-occurring in this 66-year-old woman with a known history of type 2 diabetes mellitus. Area of cellulitis is under the pannus in the left lower quadrant of the abdominal wall. Minimally improved since admission with resolution of sepsis, heart rate has come down and lactic acid level has normalized. Decreased pain and tenderness in the area of cellulitis area -Admit to the intensive care unit for close observation, monitoring, and management. -Blood cultures are pending -Saline lock IV -Because of diabetes will begin expanded IV antibiotic coverage with vancomycin and meropenem TYPE 2 DIABETES MELLITUS -Continue home insulins regimen -4 times a day glucometers -Low-dose sliding scale NovoLog RECENT HISTORY OF DEEP VEIN THROMBOSIS AND PULMONARY EMBOLISM-current INR obtained today in the emergency Department is subtherapeutic -Discontinue Lovenox now that INR is within desired range -Warfarin 7.5 mg by mouth today -INR in a.m. MAINTENANCE ISSUES -DVT prophylaxis; current therapeutic dose of Lovenox should provide adequate DVT prophylaxis -GI prophylaxis; continue outpatient PPI therapy -Luis catheter; none indicated -Nutrition; consistent carb diet -Nicotine dependence; not required CODE STATUS-FULL CODE ADMISSION STATUS-patient will be admitted to inpatient status, expect at least a 2 night hospital stay for evaluation and management of problems as outlined above. At the time of this admission I do not reasonably expected evaluation and management of this problem will require more than a 96 hour hospital stay. DISPOSITION-anticipate discharge to home after the hospital stay. PRIMARY CARE PROVIDER-Dr. Rai
[2017-02-20] MEDS ORDERED: Warfarin 2.5 MG Tab PO ONE (11:00)
[2017-02-20] MEDS ORDERED: Aluminum Hydroxide/Magnesium Hydroxide/Simethicone Susp 30 ML Cup PO PRN (12:14)
[2017-02-20] MEDS: Ondansetron 4 MG/2 ML SDV IV PRN (21:04)
[2017-02-21] MEDS: Lisinopril 10 MG Tab PO SCH (08:09)
[2017-02-21] MEDS: Simvastatin 20 MG Tab PO SCH (08:10)
[2017-02-21] MEDS: Insulin NPH/Insulin Regular,Human 70-30 100 Units/ML 10 ML Vial SUBCUT SCH ×2 (08:28→21:37)
--- NOTE | 2017-02-21 09:12 | PCM.PN ---
- General Info Date of Service: 02/21/17 Functional Status: Reports: pain controlled, ambulating, urinating - Review of Systems General: Denies: Fever, Weakness, Chills Pulmonary: Reports: no symptoms Cardiovascular: Reports: No Symptoms Gastrointestinal: Reports: No symptoms Musculoskeletal: Reports: no symptoms Skin: Reports: other (Persistent cellulitis of the abdominal wall and pannus) Systems Review Comment:: This patient has improved over the past 24 hours and otherwise been fairly stable. She did experience some nausea last night and has been found to have hypoxia when sleeping. Vital signs have been stable and she has remained afebrile. - Patient Data Vitals - most recent: Last Vital Signs Temp 98.6 F 02/21/17 07:40 Pulse 82 02/21/17 07:40 Resp 14 02/21/17 07:40 BP 112/53 L 02/21/17 08:09 Pulse Ox 92 L 02/21/17 07:40 Weight - most recent: 331 lb 5.676 oz I&O - last 24 hours: Intake & Output 02/20/17 02/21/17 02/21/17 22:59 06:59 14:59 Intake Total 893 Output Total 1250 600 Balance -1250 293 Lab Results last 24 hrs: Laboratory Results - last 24 hr 02/21/17 02/21/17 02/21/17 Range/Units 06:05 06:05 06:05 PT 28.4 H (9.5-12.0) sec INR 2.60 H (0.80-1.20) Sodium 141 (140-148) mmol/L Potassium 4.1 (3.6-5.2) mmol/L Chloride 105 (100-108) mmol/L Carbon Dioxide 33 H (21-32) mmol/L Anion Gap 7.1 (5.0-14.0) mmol/L BUN 10 (7-18) mg/dL Creatinine 0.7 (0.6-1.0) mg/dL Est Cr Clr Drug Dosing 59.65 mL/min Estimated GFR (MDRD) > 60 (>60) Glucose 97 (74-106) mg/dL Calcium 8.3 L (8.5-10.1) mg/dL Vancomycin Trough 10.9 (10.0-20.0) ug/mL Med Orders - Current: Current Medications Acetaminophen (Tylenol) 650 mg PO Q4H PRN PRN Reason: Pain (Mild 1-3)/fever Last Admin: 02/20/17 21:04 Dose: 650 mg Al Hydroxide/Mg Hydroxide (Mag-Al Plus) 30 ml PO Q2H PRN PRN Reason: Heartburn Last Admin: 02/20/17 12:28 Dose: 30 ml Albuterol (Proventil Neb Soln) 2.5 mg NEB Q4H PRN PRN Reason: Shortness Of Breath/wheezing Dextrose (Glutose 15) 15 gm PO ONETIME PRN PRN Reason: Hypoglycemia Dextrose/Water (Dextrose 50% In Water) 50 ml IV ONETIME PRN PRN Reason: Hypoglycemia Docusate Sodium (Colace) 100 mg PO BID PRN PRN Reason: Constipation Meropenem 1 gm/ Sodium (Chloride) 50 mls @ 100 mls/hr IV Q8H [facility] Last Admin: 02/21/17 01:33 Dose: 100 mls/hr Vancomycin HCl 2 gm/ Sodium (Chloride) 250 mls @ 167 mls/hr IV Q12H [facility] Last Admin: 02/21/17 06:14 Dose: 167 mls/hr Insulin Aspart (Novolog) 0 unit SUBCUT ASDIRECTED [facility] PRN Reason: Protocol Last Admin: 02/20/17 21:11 Dose: 1 units Insulin Human Isoph/Insulin Regular (Novolin 70-30) 70 unit SUBCUT BID [facility] Last Admin: 02/21/17 08:28 Dose: 70 units Lisinopril (Prinivil) 10 mg PO DAILY [facility] Last Admin: 02/21/17 08:09 Dose: 10 mg Magnesium Hydroxide (Milk Of Magnesia) 30 ml PO Q12H PRN PRN Reason: Constipation Ondansetron HCl (Zofran) 4 mg IV Q4H PRN PRN Reason: Nausea/Vomiting Last Admin: 02/20/17 21:04 Dose: 4 mg Oxycodone HCl (Oxycodone) 10 mg PO Q4H PRN PRN Reason: Pain (moderate 4-6) Last Admin: 02/20/17 21:04 Dose: 10 mg Pantoprazole Sodium (Protonix) 40 mg PO DAILY PRN PRN Reason: Heartburn Last Admin: 02/20/17 08:53 Dose: 40 mg Polyethylene Glycol (Miralax) 17 gm PO DAILY PRN PRN Reason: Constipation Simvastatin (Zocor) 40 mg PO DAILY [facility] Last Admin: 02/21/17 08:10 Dose: 40 mg Sodium Chloride (Saline Flush) 10 ml FLUSH ASDIRECTED PRN PRN Reason: Keep Vein Open Warfarin Sodium (Coumadin) 5 mg PO ONETIME ONE Stop: 02/21/17 10:01 Discontinued Medications Acetaminophen (Tylenol) 650 mg PO NOW ONE Stop: 02/19/17 12:38 Last Admin: 02/19/17 13:28 Dose: 650 mg Enoxaparin Sodium (Lovenox) 150 mg SUBCUT Q12H [facility] Last Admin: 02/20/17 05:32 Dose: 150 mg Sodium Chloride (Normal Saline) 1,000 mls @ 500 mls/hr IV ASDIRECTED [facility] Last Admin: 02/19/17 13:27 Dose: 500 mls/hr Sodium Chloride (Normal Saline) 85 mls @ 3.5 mls/sec IV ASDIRECTED [facility] Last Admin: 02/19/17 14:18 Dose: 3.5 mls/sec Sodium Chloride (Normal Saline) 1,000 mls @ 999 mls/hr IV ASDIRECTED [facility] Cefazolin Sodium/Dextrose 2 gm (/ Premix) 50 mls @ 100 mls/hr IV ONETIME ONE Stop: 02/19/17 15:18 Last Admin: 02/19/17 15:18 Dose: 100 mls/hr Sodium Chloride (Normal Saline) 500 mls @ 500 mls/hr IV .BOLUS [facility] Stop: 02/19/17 17:16 Sodium Chloride (Normal Saline) 1,000 mls @ 125 mls/hr IV ASDIRECTED [facility] Last Admin: 02/20/17 02:39 Dose: 125 mls/hr Vancomycin HCl 2 gm/ Sodium (Chloride) 250 mls @ 167 mls/hr IV Q12H [facility] Last Admin: 02/20/17 06:37 Dose: 167 mls/hr Iopamidol (Isovue-300 (61%)) 150 ml IV . DIRECTED PRN PRN Reason: RADIOLOGY EXAM Stop: 02/20/17 14:04 Last Admin: 02/19/17 14:18 Dose: 150 ml Ondansetron HCl (Zofran) 4 mg IVPUSH ONETIME ONE Stop: 02/19/17 13:22 Last Admin: 02/19/17 13:29 Dose: 4 mg Potassium Chloride (Klor-Con M20) 40 meq PO ONETIME ONE Stop: 02/20/17 09:01 Last Admin: 02/20/17 08:47 Dose: 40 meq Vancomycin HCl (Vancomycin) 1 gm IV .PHARMACY TO DOSE [facility] Warfarin Sodium (Coumadin) 7.5 mg PO ONETIME ONE Stop: 02/19/17 18:01 Last Admin: 02/19/17 17:31 Dose: 2.5 mg Warfarin Sodium (Coumadin) 7.5 mg PO ONETIME ONE Stop: 02/20/17 11:01 Last Admin: 02/20/17 12:29 Dose: 7.5 mg - Exam Quality Assessment: supplemental oxygen, DVT prophylaxis General: alert, oriented, cooperative, mild distress Lungs: Clear to auscultation, Normal respiratory effort Cardiovascular: Regular Rate, Regular Rhythm, No Murmurs Abdomen: bowel sounds present, soft, no tenderness, no distension Extremities: no edema Skin: other (Persistent cellulitis abdominal wall and pannus) - Problem List Review Problem List Initiated/Reviewed/Updated: Yes - My Orders Last 24 Hours: My Active Orders 02/20/17 10:36 Convert IV to Saline Lock [OM.PC] Routine 02/20/17 12:14 Alum Hydrox/Mag Hydrox/Simeth [Mag-Al Plus] 30 ml PO Q2H PRN 02/20/17 18:30 Vancomycin 2 gm Sodium Chloride 0.9% [Normal Saline] 250 ml IV Q12H 02/21/17 09:01 Abdomen Ltd [US] Stat Warfarin [Coumadin] 5 mg PO ONETIME ONE 02/21/17 09:02 Consult to Physician [CONS] Urgent 02/21/17 09:03 Notify Provider Consults [RC] ASDIRECTED 02/22/17 05:00 BASIC METABOLIC PANEL,BMP [CHEM] Timed CBC WITH AUTO DIFF [HEME] Timed INR,PT,PROTHROMBIN TIME [COAG] Timed 02/22/17 07:30 GLUCOSE POC LAB TO COLLECT [POC] QIDACANDBED 02/22/17 11:30 GLUCOSE POC LAB TO COLLECT [POC] QIDACANDBED 02/22/17 16:30 GLUCOSE POC LAB TO COLLECT [POC] QIDACANDBED 02/22/17 21:00 GLUCOSE POC LAB TO COLLECT [POC] QIDACANDBED 02/23/17 07:30 GLUCOSE POC LAB TO COLLECT [POC] QIDACANDBED 02/23/17 11:30 GLUCOSE POC LAB TO COLLECT [POC] QIDACANDBED 02/23/17 16:30 GLUCOSE POC LAB TO COLLECT [POC] QIDACANDBED 02/23/17 21:00 GLUCOSE POC LAB TO COLLECT [POC] QIDACANDBED 02/24/17 07:30 GLUCOSE POC LAB TO COLLECT [POC] QIDACANDBED 02/24/17 11:30 GLUCOSE POC LAB TO COLLECT [POC] QIDACANDBED 02/24/17 16:30 GLUCOSE POC LAB TO COLLECT [POC] QIDACANDBED 02/24/17 21:00 GLUCOSE POC LAB TO COLLECT [POC] QIDACANDBED 02/25/17 07:30 GLUCOSE POC LAB TO COLLECT [POC] QIDACANDBED 02/25/17 11:30 GLUCOSE POC LAB TO COLLECT [POC] QIDACANDBED 02/25/17 16:30 GLUCOSE POC LAB TO COLLECT [POC] QIDACANDBED 02/25/17 21:00 GLUCOSE POC LAB TO COLLECT [POC] QIDACANDBED 02/26/17 07:30 GLUCOSE POC LAB TO COLLECT [POC] QIDACANDBED 02/26/17 11:30 GLUCOSE POC LAB TO COLLECT [POC] QIDACANDBED 02/26/17 16:30 GLUCOSE POC LAB TO COLLECT [POC] QIDACANDBED 02/26/17 21:00 GLUCOSE POC LAB TO COLLECT [POC] QIDACANDBED 02/27/17 07:30 GLUCOSE POC LAB TO COLLECT [POC] QIDACANDBED 02/27/17 11:30 GLUCOSE POC LAB TO COLLECT [POC] QIDACANDBED 02/27/17 16:30 GLUCOSE POC LAB TO COLLECT [POC] QIDACANDBED 02/27/17 21:00 GLUCOSE POC LAB TO COLLECT [POC] QIDACANDBED 02/28/17 07:30 GLUCOSE POC LAB TO COLLECT [POC] QIDACANDBED 02/28/17 11:30 GLUCOSE POC LAB TO COLLECT [POC] QIDACANDBED 02/28/17 16:30 GLUCOSE POC LAB TO COLLECT [POC] QIDACANDBED 02/28/17 21:00 GLUCOSE POC LAB TO COLLECT [POC] QIDACANDBED 03/01/17 07:30 GLUCOSE POC LAB TO COLLECT [POC] QIDACANDBED 03/01/17 11:30 GLUCOSE POC LAB TO COLLECT [POC] QIDACANDBED 03/01/17 16:30 GLUCOSE POC LAB TO COLLECT [POC] QIDACANDBED 03/01/17 21:00 GLUCOSE POC LAB TO COLLECT [POC] QIDACANDBED 03/02/17 07:30 GLUCOSE POC LAB TO COLLECT [POC] QIDACANDBED 03/02/17 11:30 GLUCOSE POC LAB TO COLLECT [POC] QIDACANDBED 03/02/17 16:30 GLUCOSE POC LAB TO COLLECT [POC] QIDACANDBED - Plan Plan:: ASSESSMENT AND PLAN SEPSIS SECONDARY TO ABDOMINAL WALL CELLULITIS-occurring in this 66-year-old woman with a known history of type 2 diabetes mellitus. Area of cellulitis is under the pannus in the left lower quadrant of the abdominal wall. Further mild improvement in cellulitis but continues to have a fairly extensive area of infection. No obvious palpable fluctuance noted in this region. Further evaluation is warranted to rule out underlying abscess. Sepsis is resolved with no further hemodynamic instability. -Transfer to medical surgical floor -Consult Dr. Beckett for surgical pain -Ultrasound to evaluate for underlying abscess -Blood cultures are pending -Saline lock IV -Because of diabetes will begin expanded IV antibiotic coverage with vancomycin and meropenem TYPE 2 DIABETES MELLITUS -Continue home insulins regimen -4 times a day glucometers -Low-dose sliding scale NovoLog RECENT HISTORY OF DEEP VEIN THROMBOSIS AND PULMONARY EMBOLISM-INR today is within therapeutic range -Warfarin 5 mg by mouth today -INR in a.m. MAINTENANCE ISSUES -DVT prophylaxis; current therapy with warfarin providing adequate DVT prophylaxis -GI prophylaxis; continue outpatient PPI therapy -Luis catheter; none indicated -Nutrition; consistent carb diet -Nicotine dependence; not required CODE STATUS-FULL CODE ADMISSION STATUS-patient will be admitted to inpatient status, expect at least a 2 night hospital stay for evaluation and management of problems as outlined above. At the time of this admission I do not reasonably expected evaluation and management of this problem will require more than a 96 hour hospital stay. DISPOSITION-anticipate discharge to home after the hospital stay. PRIMARY CARE PROVIDER-Dr. Rai
[2017-02-21] MEDS: Acetaminophen 325 MG Tab PO PRN ×2 (09:29→23:44)
[2017-02-21] MEDS: oxyCODONE 5 MG Tab PO PRN ×2 (09:30→23:44)
[2017-02-21] MEDS ORDERED: Warfarin 5 MG Tab PO ONE (10:00)
[2017-02-21] MEDS ORDERED: Phytonadione 10 MG in Sodium Chloride 0.9% 50 ML IV ONE (11:00)
--- NOTE | 2017-02-21 12:38 | US ---
Ultrasound abdomen Limited. Findings: Images of the left lower quadrant were obtained. No focal fluid collections.
[2017-02-21] MEDS ORDERED: Enoxaparin 120 MG/0.8 ML Syringe SUBCUT ONE (13:00)
[2017-02-21] MEDS: Ondansetron 4 MG/2 ML SDV IV PRN (14:46)
[2017-02-22] MEDS: Acetaminophen 325 MG Tab PO PRN (05:35)
[2017-02-22] MEDS: oxyCODONE 5 MG Tab PO PRN ×2 (05:35→11:19)
[2017-02-22] MEDS ORDERED: Meropenem 500 MG SDV ONE (06:53)
[2017-02-22] MEDS ORDERED: fentaNYL 250 MCG/5 ML SDV ONE ×2 (07:20→08:56)
[2017-02-22] MEDS ORDERED: Rocuronium 50 MG/5 ML Vial ONE ×2 (07:21→08:34)
[2017-02-22] MEDS ORDERED: Ondansetron 4 MG/2 ML SDV ONE (07:21)
[2017-02-22] MEDS ORDERED: Dexamethasone 4 MG/ML SDV ONE (07:21)
[2017-02-22] MEDS ORDERED: Succinylcholine/Normal Saline 200 MG/10 ML Syringe ONE (07:21)
[2017-02-22] MEDS ORDERED: Neostigmine Methylsulfate 1 MG/ML 5 ML Syringe ONE (07:21)
[2017-02-22] MEDS ORDERED: Propofol 200 MG/20 ML SDV ONE (07:21)
[2017-02-22] MEDS ORDERED: Linezolid 200 MG/100 ML Bag IRR ONE (07:55)
[2017-02-22] MEDS ORDERED: Naloxone 0.4 MG/ML SDV IV PRN (11:08)
[2017-02-22] MEDS: Lisinopril 10 MG Tab PO SCH (11:20)
[2017-02-22] MEDS: Simvastatin 20 MG Tab PO SCH (11:23)
--- NOTE | 2017-02-22 12:07 | PCM.PN ---
- General Info Date of Service: 02/22/17 Functional Status: Reports: pain controlled, tolerating diet, ambulating, urinating - Review of Systems General: Reports: Weakness. Denies: Fever, Chills Pulmonary: Reports: no symptoms Cardiovascular: Reports: No Symptoms Gastrointestinal: Reports: No symptoms Systems Review Comment:: This patient has been seen and evaluated by Dr. Beckett, this morning she went to the OR for debridement of ongoing infection in her pannus. Plan is to proceed with further debridement tomorrow and then possible panniculectomy on Friday. She otherwise doing relatively well respiratory status has been stable and blood sugars have been within the desired range. - Patient Data Vitals - most recent: Last Vital Signs Temp 96.8 F 02/22/17 11:00 Pulse 79 02/22/17 11:00 Resp 18 02/22/17 11:00 BP 127/70 02/22/17 11:00 Pulse Ox 93 L 02/22/17 11:00 Weight - most recent: 331 lb 5.676 oz I&O - last 24 hours: Intake & Output 02/21/17 02/22/17 02/22/17 22:59 06:59 14:59 Intake Total 500 500 Output Total 1000 Balance 500 -500 Lab Results last 24 hrs: Laboratory Results - last 24 hr 02/21/17 02/22/17 02/22/17 Range/Units 18:00 05:28 05:28 WBC 6.7 (4.5-11.0) K/uL RBC 4.41 (3.30-5.50) M/uL Hgb 11.1 L (12.0-15.0) g/dL Hct 35.8 L (36.0-48.0) % MCV 81 (80-98) fL MCH 25 L (27-31) pg MCHC 31 L (32-36) % Plt Count 223 (150-400) K/uL Neut % (Auto) 72 H (36-66) % Lymph % (Auto) 17 L (24-44) % [place] % (Auto) 9 H (2-6) % Eos % (Auto) 2 (2-4) % Baso % (Auto) 0 (0-1) % PT 18.1 H 14.6 H (9.5-12.0) sec INR 1.68 H 1.36 H (0.80-1.20) Sodium (140-148) mmol/L Potassium (3.6-5.2) mmol/L Chloride (100-108) mmol/L Carbon Dioxide (21-32) mmol/L Anion Gap (5.0-14.0) mmol/L BUN (7-18) mg/dL Creatinine (0.6-1.0) mg/dL Est Cr Clr Drug Dosing mL/min Estimated GFR (MDRD) (>60) Glucose (74-106) mg/dL Calcium (8.5-10.1) mg/dL 02/22/17 Range/Units 05:28 WBC (4.5-11.0) K/uL RBC (3.30-5.50) M/uL Hgb (12.0-15.0) g/dL Hct (36.0-48.0) % MCV (80-98) fL MCH (27-31) pg MCHC (32-36) % Plt Count (150-400) K/uL Neut % (Auto) (36-66) % Lymph % (Auto) (24-44) % [place] % (Auto) (2-6) % Eos % (Auto) (2-4) % Baso % (Auto) (0-1) % PT (9.5-12.0) sec INR (0.80-1.20) Sodium 144 (140-148) mmol/L Potassium 3.9 (3.6-5.2) mmol/L Chloride 107 (100-108) mmol/L Carbon Dioxide 33 H (21-32) mmol/L Anion Gap 7.9 (5.0-14.0) mmol/L BUN 8 (7-18) mg/dL Creatinine 0.5 L (0.6-1.0) mg/dL Est Cr Clr Drug Dosing 83.52 mL/min Estimated GFR (MDRD) > 60 (>60) Glucose 68 L (74-106) mg/dL Calcium 8.2 L (8.5-10.1) mg/dL Igor Results last 24 hrs: Microbiology 02/22/17 10:09 Gram Stain - Final Abdomen - Incision Med Orders - Current: Current Medications Acetaminophen (Tylenol) 650 mg PO Q4H PRN PRN Reason: Pain (Mild 1-3)/fever Last Admin: 02/22/17 05:35 Dose: 650 mg Al Hydroxide/Mg Hydroxide (Mag-Al Plus) 30 ml PO Q2H PRN PRN Reason: Heartburn Last Admin: 02/20/17 12:28 Dose: 30 ml Albuterol (Proventil Neb Soln) 2.5 mg NEB Q4H PRN PRN Reason: Shortness Of Breath/wheezing Dextrose (Glutose 15) 15 gm PO ONETIME PRN PRN Reason: Hypoglycemia Dextrose/Water (Dextrose 50% In Water) 50 ml IV ONETIME PRN PRN Reason: Hypoglycemia Docusate Sodium (Colace) 100 mg PO BID PRN PRN Reason: Constipation Hydromorphone HCl (Dilaudid Physics Teacher 15 Mg In Ns 30 Ml) 0 mg IV ASDIRECTED PRN; Protocol PRN Reason: NIGHT TIME BABYSITTER PAIN CONTROL Meropenem 1 gm/ Sodium (Chloride) 50 mls @ 100 mls/hr IV Q8H [facility] Last Admin: 02/22/17 01:33 Dose: 100 mls/hr Vancomycin HCl 2 gm/ Sodium (Chloride) 250 mls @ 167 mls/hr IV Q12H [facility] Last Admin: 02/22/17 05:35 Dose: 167 mls/hr Insulin Aspart (Novolog) 0 unit SUBCUT ASDIRECTED [facility] PRN Reason: Protocol Last Admin: 02/20/17 21:11 Dose: 1 units Insulin Human Isoph/Insulin Regular (Novolin 70-30) 70 unit SUBCUT BID [facility] Last Admin: 02/21/17 21:37 Dose: 70 units Lisinopril (Prinivil) 10 mg PO DAILY [facility] Last Admin: 02/22/17 11:20 Dose: 10 mg Magnesium Hydroxide (Milk Of Magnesia) 30 ml PO Q12H PRN PRN Reason: Constipation Last Admin: 02/21/17 13:22 Dose: 30 ml Naloxone HCl (Narcan) 0.1 mg IV ASDIRECTED PRN PRN Reason: decreased respiratory rate Ondansetron HCl (Zofran) 4 mg IV Q4H PRN PRN Reason: Nausea/Vomiting Last Admin: 02/21/17 14:46 Dose: 4 mg Oxycodone HCl (Oxycodone) 10 mg PO Q4H PRN PRN Reason: Pain (moderate 4-6) Last Admin: 02/22/17 11:19 Dose: 10 mg Pantoprazole Sodium (Protonix) 40 mg PO DAILY PRN PRN Reason: Heartburn Last Admin: 02/20/17 08:53 Dose: 40 mg Polyethylene Glycol (Miralax) 17 gm PO DAILY PRN PRN Reason: Constipation Last Admin: 02/21/17 13:22 Dose: 17 gm Simvastatin (Zocor) 40 mg PO DAILY [facility] Last Admin: 02/22/17 11:23 Dose: 40 mg Sodium Chloride (Saline Flush) 10 ml FLUSH ASDIRECTED PRN PRN Reason: Keep Vein Open Sucralfate (Carafate) 1 gm PO QIDACANDBED [facility] Discontinued Medications Acetaminophen (Tylenol) 650 mg PO NOW ONE Stop: 02/19/17 12:38 Last Admin: 02/19/17 13:28 Dose: 650 mg Dexamethasone (Dexamethasone) Confirm Administered Dose 4 mg .ROUTE .STK-MED ONE Stop: 02/22/17 07:22 Enoxaparin Sodium (Lovenox) 150 mg SUBCUT Q12H [facility] Last Admin: 02/20/17 05:32 Dose: 150 mg Enoxaparin Sodium (Lovenox) 120 mg SUBCUT ONETIME ONE Stop: 02/21/17 13:01 Last Admin: 02/21/17 13:18 Dose: 120 mg Fentanyl (Sublimaze) Confirm Administered Dose 250 mcg .ROUTE .STK-MED ONE Stop: 02/22/17 07:21 Fentanyl (Sublimaze) Confirm Administered Dose 250 mcg .ROUTE .STK-MED ONE Stop: 02/22/17 08:57 Glycopyrrolate () Confirm Administered Dose 1 mg .ROUTE .STK-MED ONE Stop: 02/22/17 07:22 Heparin Sodium (Porcine) (Heparin Lock Flush 100 Units/Ml Syringe) Confirm Administered Dose 500 units .ROUTE .STK-MED ONE Stop: 02/22/17 06:56 Sodium Chloride (Normal Saline) 1,000 mls @ 500 mls/hr IV ASDIRECTED [facility] Last Admin: 02/19/17 13:27 Dose: 500 mls/hr Sodium Chloride (Normal Saline) 85 mls @ 3.5 mls/sec IV ASDIRECTED [facility] Last Admin: 02/19/17 14:18 Dose: 3.5 mls/sec Sodium Chloride (Normal Saline) 1,000 mls @ 999 mls/hr IV ASDIRECTED [facility] Cefazolin Sodium/Dextrose 2 gm (/ Premix) 50 mls @ 100 mls/hr IV ONETIME ONE Stop: 02/19/17 15:18 Last Admin: 02/19/17 15:18 Dose: 100 mls/hr Sodium Chloride (Normal Saline) 500 mls @ 500 mls/hr IV .BOLUS [facility] Stop: 02/19/17 17:16 Sodium Chloride (Normal Saline) 1,000 mls @ 125 mls/hr IV ASDIRECTED [facility] Last Admin: 02/20/17 02:39 Dose: 125 mls/hr Vancomycin HCl 2 gm/ Sodium (Chloride) 250 mls @ 167 mls/hr IV Q12H [facility] Last Admin: 02/20/17 06:37 Dose: 167 mls/hr Phytonadione 10 mg/ Sodium (Chloride) 51 mls @ 51 mls/hr IV NOW ONE Stop: 02/21/17 11:59 Last Admin: 02/21/17 11:24 Dose: 51 mls/hr Linezolid (Zyvox) Confirm Administered Dose 100 mls @ as directed .ROUTE .STK- MED ONE Stop: 02/22/17 06:54 Iopamidol (Isovue-300 (61%)) 150 ml IV . DIRECTED PRN PRN Reason: RADIOLOGY EXAM Stop: 02/20/17 14:04 Last Admin: 02/19/17 14:18 Dose: 150 ml Linezolid (Zyvox) 200 mg IRR .STK-MED ONE Stop: 02/22/17 07:56 Last Admin: 02/22/17 07:55 Dose: 200 mg Meropenem (Merrem) Confirm Administered Dose 500 mg .ROUTE .STK-MED ONE Stop: 02/22/17 06:54 Last Admin: 02/22/17 07:55 Dose: 500 mg Neostigmine Methylsulfate (Neostigmine) Confirm Administered Dose 5 mg .ROUTE .STK-MED ONE Stop: 02/22/17 07:22 Ondansetron HCl (Zofran) 4 mg IVPUSH ONETIME ONE Stop: 02/19/17 13:22 Last Admin: 02/19/17 13:29 Dose: 4 mg Ondansetron HCl (Zofran) Confirm Administered Dose 4 mg .ROUTE .STK-MED ONE Stop: 02/22/17 07:22 Potassium Chloride (Klor-Con M20) 40 meq PO ONETIME ONE Stop: 02/20/17 09:01 Last Admin: 02/20/17 08:47 Dose: 40 meq Propofol (Diprivan 20 Ml) Confirm Administered Dose 200 mg .ROUTE .STK-MED ONE Stop: 02/22/17 07:22 Rocuronium Sabinal (Zemuron) Confirm Administered Dose 50 mg .ROUTE .STK-MED ONE Stop: 02/22/17 07:22 Rocuronium Sabinal (Zemuron) Confirm Administered Dose 50 mg .ROUTE .STK-MED ONE Stop: 02/22/17 08:35 Succinylcholine Chloride (Succinylcholine In Ns Pf) Confirm Administered Dose 200 mg .ROUTE .STK-MED ONE Stop: 02/22/17 07:22 Vancomycin HCl (Vancomycin) 1 gm IV .PHARMACY TO DOSE [facility] Warfarin Sodium (Coumadin) 7.5 mg PO ONETIME ONE Stop: 02/19/17 18:01 Last Admin: 02/19/17 17:31 Dose: 2.5 mg Warfarin Sodium (Coumadin) 7.5 mg PO ONETIME ONE Stop: 02/20/17 11:01 Last Admin: 02/20/17 12:29 Dose: 7.5 mg Warfarin Sodium (Coumadin) 5 mg PO ONETIME ONE Stop: 02/21/17 10:01 Last Admin: 02/21/17 09:29 Dose: 5 mg - Exam Quality Assessment: supplemental oxygen, DVT prophylaxis General: alert, oriented, cooperative, no acute distress Lungs: Clear to auscultation, Normal respiratory effort Cardiovascular: Regular Rate, Regular Rhythm, No Murmurs Abdomen: bowel sounds present, soft, no tenderness, no distension Extremities: no edema Skin: warm, dry, intact - Problem List Review Problem List Initiated/Reviewed/Updated: Yes - My Orders Last 24 Hours: My Active Orders 02/21/17 18:08 GLUCOSE POC LAB TO COLLECT [POC] Stat 02/21/17 21:14 GLUCOSE POC LAB TO COLLECT [POC] Stat 02/22/17 11:03 Communication Order [RC] QSHIFT Verify Patient Consent Obtain [RC] ASDIRECTED Peripheral IV Discontinue [OM.PC] Routine 02/22/17 16:30 GLUCOSE POC LAB TO COLLECT [POC] QIDACANDBED 02/22/17 21:00 GLUCOSE POC LAB TO COLLECT [POC] QIDACANDBED 02/23/17 07:30 GLUCOSE POC LAB TO COLLECT [POC] QIDACANDBED 02/23/17 11:30 GLUCOSE POC LAB TO COLLECT [POC] QIDACANDBED 02/23/17 16:30 GLUCOSE POC LAB TO COLLECT [POC] QIDACANDBED 02/23/17 21:00 GLUCOSE POC LAB TO COLLECT [POC] QIDACANDBED 02/24/17 07:30 GLUCOSE POC LAB TO COLLECT [POC] QIDACANDBED 02/24/17 11:30 GLUCOSE POC LAB TO COLLECT [POC] QIDACANDBED 02/24/17 16:30 GLUCOSE POC LAB TO COLLECT [POC] QIDACANDBED 02/24/17 21:00 GLUCOSE POC LAB TO COLLECT [POC] QIDACANDBED 02/25/17 07:30 GLUCOSE POC LAB TO COLLECT [POC] QIDACANDBED 02/25/17 11:30 GLUCOSE POC LAB TO COLLECT [POC] QIDACANDBED 02/25/17 16:30 GLUCOSE POC LAB TO COLLECT [POC] QIDACANDBED 02/25/17 21:00 GLUCOSE POC LAB TO COLLECT [POC] QIDACANDBED 02/26/17 07:30 GLUCOSE POC LAB TO COLLECT [POC] QIDACANDBED 02/26/17 11:30 GLUCOSE POC LAB TO COLLECT [POC] QIDACANDBED 02/26/17 16:30 GLUCOSE POC LAB TO COLLECT [POC] QIDACANDBED 02/26/17 21:00 GLUCOSE POC LAB TO COLLECT [POC] QIDACANDBED 02/27/17 07:30 GLUCOSE POC LAB TO COLLECT [POC] QIDACANDBED 02/27/17 11:30 GLUCOSE POC LAB TO COLLECT [POC] QIDACANDBED 02/27/17 16:30 GLUCOSE POC LAB TO COLLECT [POC] QIDACANDBED 02/27/17 21:00 GLUCOSE POC LAB TO COLLECT [POC] QIDACANDBED 02/28/17 07:30 GLUCOSE POC LAB TO COLLECT [POC] QIDACANDBED 02/28/17 11:30 GLUCOSE POC LAB TO COLLECT [POC] QIDACANDBED 02/28/17 16:30 GLUCOSE POC LAB TO COLLECT [POC] QIDACANDBED 02/28/17 21:00 GLUCOSE POC LAB TO COLLECT [POC] QIDACANDBED 03/01/17 07:30 GLUCOSE POC LAB TO COLLECT [POC] QIDACANDBED 03/01/17 11:30 GLUCOSE POC LAB TO COLLECT [POC] QIDACANDBED 03/01/17 16:30 GLUCOSE POC LAB TO COLLECT [POC] QIDACANDBED 03/01/17 21:00 GLUCOSE POC LAB TO COLLECT [POC] QIDACANDBED 03/02/17 07:30 GLUCOSE POC LAB TO COLLECT [POC] QIDACANDBED 03/02/17 11:30 GLUCOSE POC LAB TO COLLECT [POC] QIDACANDBED 03/02/17 16:30 GLUCOSE POC LAB TO COLLECT [POC] QIDACANDBED - Plan Plan:: ASSESSMENT AND PLAN SEPSIS SECONDARY TO ABDOMINAL WALL CELLULITIS-occurring in this 66-year-old woman with a known history of type 2 diabetes mellitus. Area of cellulitis is under the pannus in the left lower quadrant of the abdominal wall. Seen and evaluated by Dr. Beckett, status post surgical debridement this morning in the operating room -Transfer to medical surgical floor -Surgical followup per Dr. Beckett -Blood cultures are negative thus far -Saline lock IV -Because of diabetes will continue expanded IV antibiotic coverage with vancomycin and meropenem TYPE 2 DIABETES MELLITUS-we'll close levels have been within the desired range -Continue home insulins regimen -4 times a day glucometers -Low-dose sliding scale NovoLog RECENT HISTORY OF DEEP VEIN THROMBOSIS AND PULMONARY EMBOLISM-anticoagulation reversed because of surgery -INR in a.m. MAINTENANCE ISSUES -DVT prophylaxis; current therapy with warfarin providing adequate DVT prophylaxis -GI prophylaxis; continue outpatient PPI therapy -Luis catheter; none indicated -Nutrition; consistent carb diet -Nicotine dependence; not required CODE STATUS-FULL CODE ADMISSION STATUS-patient will be admitted to inpatient status, expect at least a 2 night hospital stay for evaluation and management of problems as outlined above. At the time of this admission I do not reasonably expected evaluation and management of this problem will require more than a 96 hour hospital stay. DISPOSITION-anticipate discharge to home after the hospital stay. PRIMARY CARE PROVIDER-Dr. Rai
[2017-02-22] MEDS ORDERED: Fluconazole 100 MG Tab PO SCH (12:08)
[2017-02-22] MEDS: HYDROmorphone/Normal Saline 15 MG/30 ML PCA IV PRN (12:10)
[2017-02-22] MEDS: Insulin NPH/Insulin Regular,Human 70-30 100 Units/ML 10 ML Vial SUBCUT SCH ×2 (12:15→21:25)
[2017-02-22] MEDS: Sucralfate 1 GM Tab PO SCH ×3 (12:19→20:32)
[2017-02-22] MEDS: Ondansetron 4 MG/2 ML SDV IV PRN ×2 (13:42→18:10)
[2017-02-22] MEDS: Fluconazole 100 MG Tab PO SCH (13:43)
[2017-02-22] MEDS ORDERED: Enoxaparin 120 MG/0.8 ML Syringe SUBCUT ONE (14:00)
[2017-02-23] MEDS: Ondansetron 4 MG/2 ML SDV IV PRN (06:40)
[2017-02-23] MEDS ORDERED: Bupivacaine 0.5% 50 ML MDV ONE (06:49)
[2017-02-23] MEDS ORDERED: Lidocaine 1% with EPINEPHrine 1:100,000 50 ML MDV ONE (06:49)
[2017-02-23] MEDS ORDERED: Meropenem 500 MG SDV ONE (06:49)
[2017-02-23] MEDS ORDERED: Linezolid 200 MG/100 ML Bag IRR ONE (08:45)
[2017-02-23] MEDS ORDERED: Ondansetron 4 MG/2 ML SDV ONE (08:48)
[2017-02-23] MEDS ORDERED: Fluconazole 100 MG Tab PO SCH (09:00)
[2017-02-23] MEDS ORDERED: Propofol 200 MG/20 ML SDV ONE (09:08)
[2017-02-23] MEDS: Fluconazole 100 MG Tab PO SCH (10:08)
[2017-02-23] MEDS: Sucralfate 1 GM Tab PO SCH ×4 (10:08→19:25)
[2017-02-23] MEDS: Simvastatin 20 MG Tab PO SCH (10:09)
[2017-02-23] MEDS: Lisinopril 10 MG Tab PO SCH (10:09)
[2017-02-23] MEDS: Sodium Chloride 0.9% 1,000 ML IV SCH (10:14)
[2017-02-23] MEDS ORDERED: Enoxaparin 120 MG/0.8 ML Syringe SUBCUT ONE (10:30)
[2017-02-23] MEDS: Insulin NPH/Insulin Regular,Human 70-30 100 Units/ML 10 ML Vial SUBCUT SCH ×2 (11:55→20:54)
--- NOTE | 2017-02-23 14:47 | PCM.PN ---
- General Info Date of Service: 02/23/17 Functional Status: Reports: pain controlled, tolerating diet, ambulating, urinating - Review of Systems General: Reports: Weakness. Denies: Fever, Chills Pulmonary: Reports: no symptoms Cardiovascular: Reports: No Symptoms Gastrointestinal: Reports: No symptoms Systems Review Comment:: This patient has been stable since yesterday, she was taken back to the operating room earlier today by Dr. Beckett for further debridement. Glucose levels have been relatively stable although somewhat low this morning. Vital signs have been good and she has remained afebrile. - Patient Data Vitals - most recent: Last Vital Signs Temp 98.1 F 02/23/17 10:15 Pulse 78 02/23/17 10:54 Resp 16 02/23/17 10:30 BP 108/60 02/23/17 10:54 Pulse Ox 97 02/23/17 10:30 Weight - most recent: 331 lb 5.676 oz I&O - last 24 hours: Intake & Output 02/22/17 02/23/17 02/23/17 22:59 06:59 14:59 Intake Total 857 1411 332 Output Total 1300 2050 Balance -053 -986 332 Igor Results last 24 hrs: Microbiology 02/22/17 09:10 CLOtest - Final Stomach NEGATIVE CLOTEST 02/22/17 10:09 Gram Stain - Final Abdomen - Incision Wound Culture - Preliminary NO GROWTH AFTER 1 DAY Anaerobic Culture - Preliminary NO GROWTH AFTER 1 DAY Med Orders - Current: Current Medications Acetaminophen (Tylenol) 650 mg PO Q4H PRN PRN Reason: Pain (Mild 1-3)/fever Last Admin: 02/22/17 05:35 Dose: 650 mg Al Hydroxide/Mg Hydroxide (Mag-Al Plus) 30 ml PO Q2H PRN PRN Reason: Heartburn Last Admin: 02/20/17 12:28 Dose: 30 ml Albuterol (Proventil Neb Soln) 2.5 mg NEB Q4H PRN PRN Reason: Shortness Of Breath/wheezing Dextrose (Glutose 15) 15 gm PO ONETIME PRN PRN Reason: Hypoglycemia Dextrose/Water (Dextrose 50% In Water) 50 ml IV ONETIME PRN PRN Reason: Hypoglycemia Docusate Sodium (Colace) 100 mg PO BID PRN PRN Reason: Constipation Fluconazole (Diflucan) 100 mg PO DAILY DEANNA Last Admin: 02/23/17 10:08 Dose: 100 mg Hydromorphone HCl (Dilaudid Telecommunications Engineer 15 Mg In Ns 30 Ml) 0 mg IV ASDIRECTED PRN; Protocol PRN Reason: P[employer] PAIN CONTROL Last Admin: 02/22/17 12:10 Dose: 15 mg Meropenem 1 gm/ Sodium (Chloride) 50 mls @ 100 mls/hr IV Q8H [facility] Last Admin: 02/23/17 10:14 Dose: 100 mls/hr Vancomycin HCl 2 gm/ Sodium (Chloride) 250 mls @ 167 mls/hr IV Q12H [facility] Last Admin: 02/23/17 05:41 Dose: 167 mls/hr Sodium Chloride (Normal Saline) 1,000 mls @ 50 mls/hr IV ASDIRECTED [facility] Last Admin: 02/23/17 10:14 Dose: 50 mls/hr Insulin Aspart (Novolog) 0 unit SUBCUT ASDIRECTED [facility] PRN Reason: Protocol Last Admin: 02/20/17 21:11 Dose: 1 units Insulin Human Isoph/Insulin Regular (Novolin 70-30) 56 unit SUBCUT BID [facility] Lisinopril (Prinivil) 10 mg PO DAILY [facility] Last Admin: 02/23/17 10:09 Dose: 10 mg Magnesium Hydroxide (Milk Of Magnesia) 30 ml PO Q12H PRN PRN Reason: Constipation Last Admin: 02/21/17 13:22 Dose: 30 ml Naloxone HCl (Narcan) 0.1 mg IV ASDIRECTED PRN PRN Reason: decreased respiratory rate Ondansetron HCl (Zofran) 4 mg IV Q4H PRN PRN Reason: Nausea/Vomiting Last Admin: 02/23/17 06:40 Dose: 4 mg Oxycodone HCl (Oxycodone) 10 mg PO Q4H PRN PRN Reason: Pain (moderate 4-6) Last Admin: 02/22/17 11:19 Dose: 10 mg Pantoprazole Sodium (Protonix) 40 mg PO DAILY PRN PRN Reason: Heartburn Last Admin: 02/20/17 08:53 Dose: 40 mg Polyethylene Glycol (Miralax) 17 gm PO DAILY PRN PRN Reason: Constipation Last Admin: 02/21/17 13:22 Dose: 17 gm Simvastatin (Zocor) 40 mg PO DAILY [facility] Last Admin: 02/23/17 10:09 Dose: 40 mg Sodium Chloride (Saline Flush) 10 ml FLUSH ASDIRECTED PRN PRN Reason: Keep Vein Open Sucralfate (Carafate) 1 gm PO QIDACANDBED [facility] Last Admin: 02/23/17 12:05 Dose: Not Given Discontinued Medications Acetaminophen (Tylenol) 650 mg PO NOW ONE Stop: 02/19/17 12:38 Last Admin: 02/19/17 13:28 Dose: 650 mg Bupivacaine HCl (Marcaine 0.5%) Confirm Administered Dose 50 ml .ROUTE .STK-MED ONE Stop: 02/23/17 06:50 Last Admin: 02/23/17 08:45 Dose: 50 ml Dexamethasone (Dexamethasone) Confirm Administered Dose 4 mg .ROUTE .STK-MED ONE Stop: 02/22/17 07:22 Enoxaparin Sodium (Lovenox) 150 mg SUBCUT Q12H [facility] Last Admin: 02/20/17 05:32 Dose: 150 mg Enoxaparin Sodium (Lovenox) 120 mg SUBCUT ONETIME ONE Stop: 02/21/17 13:01 Last Admin: 02/21/17 13:18 Dose: 120 mg Enoxaparin Sodium (Lovenox) 120 mg SUBCUT ONETIME ONE Stop: 02/22/17 14:01 Last Admin: 02/22/17 13:51 Dose: 120 mg Enoxaparin Sodium (Lovenox) 120 mg SUBCUT ONETIME ONE Stop: 02/23/17 10:31 Last Admin: 02/23/17 10:14 Dose: 120 mg Fentanyl (Sublimaze) Confirm Administered Dose 250 mcg .ROUTE .STK-MED ONE Stop: 02/22/17 07:21 Fentanyl (Sublimaze) Confirm Administered Dose 250 mcg .ROUTE .STK-MED ONE Stop: 02/22/17 08:57 Fluconazole (Diflucan) 100 mg PO DAILY [facility] Glycopyrrolate () Confirm Administered Dose 1 mg .ROUTE .STK-MED ONE Stop: 02/22/17 07:22 Heparin Sodium (Porcine) (Heparin Lock Flush 100 Units/Ml Syringe) Confirm Administered Dose 500 units .ROUTE .STK-MED ONE Stop: 02/22/17 06:56 Sodium Chloride (Normal Saline) 1,000 mls @ 500 mls/hr IV ASDIRECTED [facility] Last Admin: 02/19/17 13:27 Dose: 500 mls/hr Sodium Chloride (Normal Saline) 85 mls @ 3.5 mls/sec IV ASDIRECTED [facility] Last Admin: 02/19/17 14:18 Dose: 3.5 mls/sec Sodium Chloride (Normal Saline) 1,000 mls @ 999 mls/hr IV ASDIRECTED [facility] Cefazolin Sodium/Dextrose 2 gm (/ Premix) 50 mls @ 100 mls/hr IV ONETIME ONE Stop: 02/19/17 15:18 Last Admin: 02/19/17 15:18 Dose: 100 mls/hr Sodium Chloride (Normal Saline) 500 mls @ 500 mls/hr IV .BOLUS [facility] Stop: 02/19/17 17:16 Sodium Chloride (Normal Saline) 1,000 mls @ 125 mls/hr IV ASDIRECTED [facility] Last Admin: 02/20/17 02:39 Dose: 125 mls/hr Vancomycin HCl 2 gm/ Sodium (Chloride) 250 mls @ 167 mls/hr IV Q12H [facility] Last Admin: 02/20/17 06:37 Dose: 167 mls/hr Phytonadione 10 mg/ Sodium (Chloride) 51 mls @ 51 mls/hr IV NOW ONE Stop: 02/21/17 11:59 Last Admin: 02/21/17 11:24 Dose: 51 mls/hr Linezolid (Zyvox) Confirm Administered Dose 100 mls @ as directed .ROUTE .STK- MED ONE Stop: 02/23/17 07:10 Insulin Human Isoph/Insulin Regular (Novolin 70-30) 70 unit SUBCUT BID [facility] Last Admin: 02/23/17 11:55 Dose: Not Given Iopamidol (Isovue-300 (61%)) 150 ml IV . DIRECTED PRN PRN Reason: RADIOLOGY EXAM Stop: 02/20/17 14:04 Last Admin: 02/19/17 14:18 Dose: 150 ml Lidocaine/Epinephrine (Xylocaine 1% With Epinephrine 1:100,000) Confirm Administered Dose 50 ml .ROUTE .STK-MED ONE Stop: 02/23/17 06:50 Last Admin: 02/23/17 08:45 Dose: 50 ml Linezolid (Zyvox) 200 mg IRR .STK-MED ONE Stop: 02/22/17 07:56 Last Admin: 02/22/17 07:55 Dose: 200 mg Linezolid (Zyvox) 200 mg IRR .STK-MED ONE Stop: 02/23/17 08:46 Last Admin: 02/23/17 08:45 Dose: 200 mg Meropenem (Merrem) Confirm Administered Dose 500 mg .ROUTE .STK-MED ONE Stop: 02/22/17 06:54 Last Admin: 02/22/17 07:55 Dose: 500 mg Meropenem (Merrem) Confirm Administered Dose 500 mg .ROUTE .STK-MED ONE Stop: 02/23/17 06:50 Neostigmine Methylsulfate (Neostigmine) Confirm Administered Dose 5 mg .ROUTE .STK-MED ONE Stop: 02/22/17 07:22 Ondansetron HCl (Zofran) 4 mg IVPUSH ONETIME ONE Stop: 02/19/17 13:22 Last Admin: 02/19/17 13:29 Dose: 4 mg Ondansetron HCl (Zofran) Confirm Administered Dose 4 mg .ROUTE .STK-MED ONE Stop: 02/22/17 07:22 Ondansetron HCl (Zofran) Confirm Administered Dose 4 mg .ROUTE .STK-MED ONE Stop: 02/23/17 08:49 Potassium Chloride (Klor-Con M20) 40 meq PO ONETIME ONE Stop: 02/20/17 09:01 Last Admin: 02/20/17 08:47 Dose: 40 meq Propofol (Diprivan 20 Ml) Confirm Administered Dose 200 mg .ROUTE .STK-MED ONE Stop: 02/22/17 07:22 Propofol (Diprivan 20 Ml) Confirm Administered Dose 200 mg .ROUTE .STK-MED ONE Stop: 02/23/17 09:09 Rocuronium Pamplin (Zemuron) Confirm Administered Dose 50 mg .ROUTE .STK-MED ONE Stop: 02/22/17 07:22 Rocuronium Pam[place]in (Zemuron) Confirm Administered Dose 50 mg .ROUTE .STK-MED ONE Stop: 02/22/17 08:35 Succinylcholine Chloride (Succinylcholine In Ns Pf) Confirm Administered Dose 200 mg .ROUTE .STK-MED ONE Stop: 02/22/17 07:22 Vancomycin HCl (Vancomycin) 1 gm IV .PHARMACY TO DOSE DEANNA Warfarin Sodium (Coumadin) 7.5 mg PO ONETIME ONE Stop: 02/19/17 18:01 Last Admin: 02/19/17 17:31 Dose: 2.5 mg Warfarin Sodium (Coumadin) 7.5 mg PO ONETIME ONE Stop: 02/20/17 11:01 Last Admin: 02/20/17 12:29 Dose: 7.5 mg Warfarin Sodium (Coumadin) 5 mg PO ONETIME ONE Stop: 02/21/17 10:01 Last Admin: 02/21/17 09:29 Dose: 5 mg - Exam Quality Assessment: DVT prophylaxis General: alert, oriented, cooperative, no acute distress Lungs: Clear to auscultation, Normal respiratory effort Cardiovascular: Regular Rate, Regular Rhythm, No Murmurs Abdomen: bowel sounds present, soft, no tenderness, no distension Extremities: no edema Skin: warm, dry, intact - Problem List Review Problem List Initiated/Reviewed/Updated: Yes - My Orders Last 24 Hours: My Active Orders 02/23/17 14:43 Insulin NPH/Insulin Reg,Human [NovoLIN 70-30] 56 unit SUBCUT BID 02/23/17 16:30 GLUCOSE POC LAB TO COLLECT [POC] QIDACANDBED 02/23/17 21:00 GLUCOSE POC LAB TO COLLECT [POC] QIDACANDBED 02/24/17 07:30 GLUCOSE POC LAB TO COLLECT [POC] QIDACANDBED 02/24/17 11:30 GLUCOSE POC LAB TO COLLECT [POC] QIDACANDBED 02/24/17 16:30 GLUCOSE POC LAB TO COLLECT [POC] QIDACANDBED 02/24/17 21:00 GLUCOSE POC LAB TO COLLECT [POC] QIDACANDBED 02/25/17 07:30 GLUCOSE POC LAB TO COLLECT [POC] QIDACANDBED 02/25/17 11:30 GLUCOSE POC LAB TO COLLECT [POC] QIDACANDBED 02/25/17 16:30 GLUCOSE POC LAB TO COLLECT [POC] QIDACANDBED 02/25/17 21:00 GLUCOSE POC LAB TO COLLECT [POC] QIDACANDBED 02/26/17 07:30 GLUCOSE POC LAB TO COLLECT [POC] QIDACANDBED 02/26/17 11:30 GLUCOSE POC LAB TO COLLECT [POC] QIDACANDBED 02/26/17 16:30 GLUCOSE POC LAB TO COLLECT [POC] QIDACANDBED 02/26/17 21:00 GLUCOSE POC LAB TO COLLECT [POC] QIDACANDBED 02/27/17 07:30 GLUCOSE POC LAB TO COLLECT [POC] QIDACANDBED 02/27/17 11:30 GLUCOSE POC LAB TO COLLECT [POC] QIDACANDBED 02/27/17 16:30 GLUCOSE POC LAB TO COLLECT [POC] QIDACANDBED 02/27/17 21:00 GLUCOSE POC LAB TO COLLECT [POC] QIDACANDBED 02/28/17 07:30 GLUCOSE POC LAB TO COLLECT [POC] QIDACANDBED 02/28/17 11:30 GLUCOSE POC LAB TO COLLECT [POC] QIDACANDBED 02/28/17 16:30 GLUCOSE POC LAB TO COLLECT [POC] QIDACANDBED 02/28/17 21:00 GLUCOSE POC LAB TO COLLECT [POC] QIDACANDBED 03/01/17 07:30 GLUCOSE POC LAB TO COLLECT [POC] QIDACANDBED 03/01/17 11:30 GLUCOSE POC LAB TO COLLECT [POC] QIDACANDBED 03/01/17 16:30 GLUCOSE POC LAB TO COLLECT [POC] QIDACANDBED 03/01/17 21:00 GLUCOSE POC LAB TO COLLECT [POC] QIDACANDBED 03/02/17 07:30 GLUCOSE POC LAB TO COLLECT [POC] QIDACANDBED 03/02/17 11:30 GLUCOSE POC LAB TO COLLECT [POC] QIDACANDBED 03/02/17 16:30 GLUCOSE POC LAB TO COLLECT [POC] QIDACANDBED - Plan Plan:: ASSESSMENT AND PLAN SEPSIS SECONDARY TO ABDOMINAL WALL CELLULITIS-occurring in this 66-year-old woman with a known history of type 2 diabetes mellitus. Area of cellulitis is under the pannus in the left lower quadrant of the abdominal wall. Status post surgical debridement over the past [address] Beckett. Plan is to proceed with panniculectomy tomorrow. -Transfer to medical surgical floor -Surgical followup per Dr. Beckett -Blood cultures are negative thus far -Saline lock IV -Because of diabetes will continue expanded IV antibiotic coverage with vancomycin and meropenem TYPE 2 DIABETES MELLITUS-glucose levels mildly low we'll plan to decrease current dose of insulin -Decrease 70/30 insulin 256 units twice daily -4 times a day glucometers -Low-dose sliding scale NovoLog RECENT HISTORY OF DEEP VEIN THROMBOSIS AND PULMONARY EMBOLISM-anticoagulation reversed because of surgery MAINTENANCE ISSUES -DVT prophylaxis; current therapy with warfarin providing adequate DVT prophylaxis -GI prophylaxis; continue outpatient PPI therapy -Luis catheter; none indicated -Nutrition; consistent carb diet -Nicotine dependence; not required CODE STATUS-FULL CODE ADMISSION STATUS-patient will be admitted to inpatient status, expect at least a 2 night hospital stay for evaluation and management of problems as outlined above. At the time of this admission I do not reasonably expected evaluation and management of this problem will require more than a 96 hour hospital stay. DISPOSITION-anticipate discharge to home after the hospital stay. PRIMARY CARE PROVIDER-Dr. Rai Hospitalist service will sign off on the patient at this time if she is otherwise been medically stable. If we can be of further assistance in medical management during this hospitalization please feel free to reconsult.
[2017-02-23] MEDS: Insulin Aspart 100 Units/ML 3 ML Pen SUBCUT SCH ×2 (17:19→20:56)
[2017-02-24] MEDS ORDERED: Meropenem 500 MG SDV ONE (07:05)
[2017-02-24] MEDS: Sucralfate 1 GM Tab PO SCH ×4 (07:12→19:47)
[2017-02-24] MEDS ORDERED: Ondansetron 4 MG/2 ML SDV ONE (08:17)
[2017-02-24] MEDS ORDERED: fentaNYL 250 MCG/5 ML SDV ONE (08:17)
[2017-02-24] MEDS ORDERED: Succinylcholine/Normal Saline 200 MG/10 ML Syringe ONE (08:17)
[2017-02-24] MEDS ORDERED: Propofol 200 MG/20 ML SDV ONE (08:17)
[2017-02-24] MEDS ORDERED: Rocuronium 50 MG/5 ML Vial ONE (08:17)
[2017-02-24] MEDS ORDERED: Dexamethasone 4 MG/ML SDV ONE (08:17)
[2017-02-24] MEDS ORDERED: Neostigmine Methylsulfate 1 MG/ML 5 ML Syringe ONE (08:17)
[2017-02-24] MEDS: Fluconazole 100 MG Tab PO SCH (08:31)
[2017-02-24] MEDS: Lisinopril 10 MG Tab PO SCH (08:31)
[2017-02-24] MEDS: Simvastatin 20 MG Tab PO SCH (08:31)
[2017-02-24] MEDS: Insulin NPH/Insulin Regular,Human 70-30 100 Units/ML 10 ML Vial SUBCUT SCH ×2 (08:35→21:15)
[2017-02-24] MEDS: Sodium Chloride 0.9% 1,000 ML IV SCH (09:10)
--- NOTE | 2017-02-24 09:30 | CR ---
Portable chest Comparison: 2 days prior. There has been placement of endotracheal tube. The endotracheal tube is located 1.5 cm above the car carley. There is a left central venous catheter with the tip descending down into the SVC. There are sh allow lung volumes. There is cardiac enlargement with vascular engorgement. There are no infiltrates or effusions. Impression: 1. Left central venous catheter as well as endotracheal tube in good position. 2. Shallow lung volumes likely contribute to cardiac enlargement and vascular engorgement.
--- NOTE | 2017-02-24 09:31 | PN ---
DATE OF SERVICE: 02/24/2017 SUBJECTIVE: She is n.p.o. She will be having resection, closure, and panniculectomy for necrotizing abdominal fasciitis. She reports her pain is controlled. She has no questions today. Vital signs have been stable. Temp-max was 98.5. REVIEW OF SYSTEMS: Remainder of review of systems negative for any pertinent positives or negatives. Last blood sugar was 219. OBJECTIVE: GENERAL: Susan is a 66-year-old female. VITAL SIGNS: TPR is 98.5, 88, 20, blood pressure 139/76. HEENT: Negative. NECK: Supple. HEART: Regular rate and rhythm. LUNGS: Clear. ABDOMEN: Dressings are dry and intact. Abdominal binder is on. EXTREMITIES: Reveal trace peripheral edema. ASSESSMENT: 1. Insertion of left subclavian triple lumen, wide debridement of necrotizing soft tissue, infection of abdominal wall, and biopsy of the antrum for CLOtest and deep tissue cultures obtained on 02/22/2017. 2. Debridement of necrotizing involved infection of abdominal wall on 02/23/2017. PLAN: Remain n.p.o. for surgery. Orders to be written postoperatively. Shauna Villavicencio PA-C /[id number]
[2017-02-24] MEDS ORDERED: Meropenem 500 MG SDV IV ONE (09:56)
[2017-02-24] MEDS ORDERED: Linezolid 200 MG/100 ML Bag IV ONE ×2 (09:57)
[2017-02-24] MEDS ORDERED: Scopolamine 1.5 MG Transdermal Patch ONE (10:05)
[2017-02-24] MEDS ORDERED: Lactated Ringers 1,000 ML ONE ×2 (10:37)
[2017-02-24] MEDS: Linezolid 600 MG in Premix Bag 1 BAG IV SCH ×2 (11:53→23:06)
[2017-02-24] MEDS ORDERED: Acetaminophen 325 MG Tab PO PRN (11:53)
[2017-02-24] MEDS ORDERED: oxyCODONE 5 MG Tab PO PRN (11:56)
--- NOTE | 2017-02-24 12:31 | PN ---
DATE OF SERVICE: 02/23/2017 The patient has been afebrile with stable vital signs. Overall, she has done well after the debridement yesterday. Deep wound cultures showed some gram-positive cocci, so at this point, we will continue the present antibiotics which include vancomycin and plan will be to proceed with debridement today. Tomorrow I am guessing the wound will be clean enough, we will do some further debridement of any remaining necrotic material and then attempt closing the wound, so she is not affected by a large open wound over the next many weeks. Otherwise, from the DVT prophylaxis standpoint, we will give her 120 mg of Lovenox once again after the procedure today, and then after the procedure tomorrow, begin Lovenox along with recoumadinizing the patient. Blas Beckett MD /[id number]
--- NOTE | 2017-02-24 12:37 | CONS ---
DATE OF SERVICE: 02/21/2017 REFERRING PHYSICIAN: CONSULTING PHYSICIAN: Blas Beckett MD HISTORY OF PRESENT ILLNESS: This is a 66-year-old female presenting with persistent abdominal wall infection. There is no obvious crepitus in this incision and ultrasound showed no fluid collections or obvious air. This is maybe as low-grade necrotizing fasciitis aspect, will see some fat necrosis. Her pro-time was quite elevated and given the stability of the patient overall, will correct that today with some IV vitamin K and give her some Lovenox today as well and she did have a history of pulmonary embolism with apparent saddle embolism noted on CT scan at the bifurcation of the pulmonary artery. The plan will be to proceed with excisional debridement of the area of infection tomorrow. I will most likely give some additional debridement then on Friday and then Friday perhaps proceed with whatever additional debridement as necessary, then closed that wound up hoping to avoid need for long-term open wound status. Potential risks including bleeding and further infection, complications related to the anesthesia such as aspiration, which she apparently had at the time of her recent hysterectomy were all gone over. Along with the possibility of cardiopulmonary, septic, or hemorrhagic complications leading to and the patient wishes to proceed. Surgery will be scheduled for tomorrow morning. Blas Beckett MD /[id number]
[2017-02-24] MEDS ORDERED: Meperidine PF 100 MG/ML Syringe IM ONE (13:15)
[2017-02-24] MEDS: hydrOXYzine HCl 50 MG/ML SDV IM PRN (13:25)
[2017-02-24] MEDS: Acetaminophen 1,000 MG in Premix Bag 1 BAG IV SCH ×2 (13:26→18:41)
[2017-02-24] MEDS: HYDROmorphone/Normal Saline 15 MG/30 ML PCA IV PRN (13:27)
[2017-02-24] MEDS: Docusate Sodium 100 MG Cap PO SCH ×2 (14:26→20:58)
[2017-02-24] MEDS: Pantoprazole 40 MG Vial IV SCH (14:29)
[2017-02-24] MEDS: Metoclopramide 10 MG/2 ML SDV IV SCH ×2 (14:29→18:36)
[2017-02-24] MEDS: Enoxaparin 60 MG/0.6 ML Syringe SUBCUT SCH (18:35)
[2017-02-24] MEDS: Insulin Aspart 100 Units/ML 3 ML Pen SUBCUT SCH (18:43)
[2017-02-24] MEDS: Sodium Chloride 0.9% 10 ML Syringe FLUSH PRN (23:03)
[2017-02-25] MEDS: Dextrose 5%-Lactated Ringers 1,000 ML IV SCH ×3 (00:02→06:14)
[2017-02-25] MEDS: Metoclopramide 10 MG/2 ML SDV IV SCH ×5 (00:04→23:37)
[2017-02-25] MEDS: Enoxaparin 60 MG/0.6 ML Syringe SUBCUT SCH ×2 (05:25→18:04)
[2017-02-25] MEDS: Sodium Chloride 0.9% 10 ML Syringe FLUSH PRN ×2 (05:25→16:15)
[2017-02-25] MEDS: Sucralfate 1 GM Tab PO SCH ×4 (07:31→20:47)
[2017-02-25] MEDS ORDERED: Dextrose 5%-Lactated Ringers 1,000 ML IV SCH (07:31)
[2017-02-25] MEDS ORDERED: Furosemide 20 MG/2 ML VIAL IVPUSH ONE (08:00)
[2017-02-25] MEDS: Lisinopril 10 MG Tab PO SCH (09:16)
[2017-02-25] MEDS: Polyethylene Glycol 3350 Powder 17 GM Packet PO SCH (09:16)
[2017-02-25] MEDS: Simvastatin 20 MG Tab PO SCH (09:16)
[2017-02-25] MEDS: Albumin 25% 12.5 GM/50 ML BAG IV SCH ×2 (09:17→12:35)
[2017-02-25] MEDS: Fluconazole 100 MG Tab PO SCH (09:17)
[2017-02-25] MEDS: Docusate Sodium 100 MG Cap PO SCH ×2 (09:17→20:48)
[2017-02-25] MEDS: Magnesium Sulfate/Water 2 GM in Premix Bag 1 BAG IV SCH ×3 (09:20→21:04)
[2017-02-25] MEDS: Insulin Aspart 100 Units/ML 3 ML Pen SUBCUT SCH ×2 (09:44→21:01)
[2017-02-25] MEDS: Insulin NPH/Insulin Regular,Human 70-30 100 Units/ML 10 ML Vial SUBCUT SCH ×2 (09:57→20:48)
[2017-02-25] MEDS ORDERED: Warfarin 2.5 MG Tab PO ONE (10:00)
[2017-02-25] MEDS: Linezolid 600 MG in Premix Bag 1 BAG IV SCH ×2 (12:35→23:39)
[2017-02-25] MEDS: Pantoprazole 40 MG Vial IV SCH (14:51)
[2017-02-26] MEDS: Magnesium Sulfate/Water 2 GM in Premix Bag 1 BAG IV SCH ×4 (03:01→21:20)
[2017-02-26] MEDS: Metoclopramide 10 MG/2 ML SDV IV SCH ×4 (05:19→23:22)
[2017-02-26] MEDS: Enoxaparin 60 MG/0.6 ML Syringe SUBCUT SCH ×2 (05:19→17:19)
--- NOTE | 2017-02-26 07:51 | PN ---
DATE OF SERVICE: 02/25/2017 SUBJECTIVE: Susan is postop day #1. She states her pain is controlled. Her oral intake was 540. Her output was 4870. RUTH drains have put out 50, 92, 50, and 85 of a light pink serous drainage. She does state her pain has been controlled. REVIEW OF SYSTEMS: Remainder of review of systems negative for any pertinent positives and negatives. OBJECTIVE: GENERAL: Susan Fleming is a 66-year-old female. VITAL SIGNS: TPR is 98.4, 82, 18, blood pressure is 150/71. HEENT: Negative. NECK: Supple. HEART: Regular rate and rhythm. LUNGS: Clear. ABDOMEN: Dressings dry and intact. RUTH drains x4 intact as above. EXTREMITIES: Reveal peripheral edema 1+. ASSESSMENT: 1. Panniculectomy on 02/24/2017. 2. Debridement of necrotizing tissue involved in infection of abdominal wall on 02/23/2017. 3. Insertion of subclavian triple lumen, wide debridement of necrotizing soft tissue infection of abdominal wall, biopsy of the antrum for CLOtest, and deep tissue cultures obtained on 02/22/2017. PLAN: 1. Decrease IV to TKO. 2. Magnesium 2 g IV q.6 hours x72 hours. 3. Albumin 25 g IV daily. 4. Lasix 20 mg IV one time. 5. Check CBC, CMP, phosphorus, and BNP in a.m. 6. Coumadin 7.5 mg dose one time. Luis catheter will be left in due to increased tissue removal (18 pounds and monitoring of intake and output). She will be losing a lot of albumin through the RUTH drains. Good pulmonary toilet encouraged. We will evaluate p.r.n. or in a.m. Shauna Villavicencio PA-C /[id number]
[2017-02-26] MEDS ORDERED: Dextrose 5%-Lactated Ringers 1,000 ML IV SCH (08:00)
[2017-02-26] MEDS: Sucralfate 1 GM Tab PO SCH ×4 (08:02→19:34)
[2017-02-26] MEDS: Pantoprazole 40 MG Tab.CR PO SCH (08:02)
[2017-02-26] MEDS ORDERED: Magnesium Hydroxide 400 MG/5 ML Susp 30 ML Cup PO ONE (09:00)
[2017-02-26] MEDS: Albumin 25% 12.5 GM/50 ML BAG IV SCH ×2 (09:00→11:04)
[2017-02-26] MEDS: Polyethylene Glycol 3350 Powder 17 GM Packet PO SCH (09:04)
[2017-02-26] MEDS: Fluconazole 100 MG Tab PO SCH (09:05)
[2017-02-26] MEDS: Docusate Sodium 100 MG Cap PO SCH ×2 (09:05→20:02)
[2017-02-26] MEDS: Simvastatin 20 MG Tab PO SCH (09:06)
[2017-02-26] MEDS: Lisinopril 10 MG Tab PO SCH (09:06)
[2017-02-26] MEDS: Insulin NPH/Insulin Regular,Human 70-30 100 Units/ML 10 ML Vial SUBCUT SCH ×2 (09:06→21:28)
--- NOTE | 2017-02-26 09:33 | PN ---
DATE OF SERVICE: 02/26/2017 SUBJECTIVE: Susan is postop day 2. She had a temp-max of 101.3 yesterday. She got up and walked in and went down to 100.6. She used her Acapella, walked again, and her temperature now has been 99.8. She does have a dry cough. Current antibiotics include Zyvox and meropenem. She had increased amount of drowsiness. A scopolamine patch was discontinued. INR 12.7. PT is 1.19. She received Coumadin 7.5 mg p.o. yesterday with Lovenox b.i.d. Last bowel movement was 02/20/2017. Intake was 1030. Output via Luis catheter was 5225. RUTH drains x4 have put out 135, 60, 130, and 80 mL respectively. REVIEW OF SYSTEMS: Remainder of review of systems negative for any pertinent positives or negatives. OBJECTIVE: GENERAL: Susan is a pleasant 66-year-old female. VITAL SIGNS: TPR 98.5, 83, 20, blood pressure 125/57. HEENT: Negative. NECK: Supple. HEART: Regular rate and rhythm. LUNGS: Clear. ABDOMEN: Dressings are dry and intact. RUTH drains x4 intact. EXTREMITIES: Revealed trace peripheral edema. ASSESSMENT: 1. Panniculectomy 02/24/2017. 2. Debridement of necrotizing tissue, involved in infection of abdominal wall for 01/20/2017. 3. Insertion of subclavian triple lumen, wide debridement of necrotizing soft tissue of abdominal wall. Biopsy of the antrum with CLOtest test and deep tissue cultures, 02/22/2017. PLAN: 1. Discontinue Luis catheter. 2. Discontinue AIRSET MOLDER and continuous pulse ox. 3. Milk of magnesia, 30 ml now followed in 1 hour by Dulcolax 2 tabs p.o. 4. Coumadin 7.5 mg p.o. today, ask in a.m. and [place] 5/325 of 1 to 2 every 4 hours p.r.n. pain. 5. Good pulmonary toilet encouraged. 6. We will evaluate p.r.n. or in a.m. Shauna Villavicencio PA-C /[id number]
[2017-02-26] MEDS ORDERED: Bisacodyl 5 MG Tab PO ONE (10:00)
[2017-02-26] MEDS: Acetaminophen/HYDROcodone 325-5 MG Tab PO PRN ×3 (10:08→22:39)
[2017-02-26] MEDS: Linezolid 600 MG in Premix Bag 1 BAG IV SCH ×2 (11:55→22:36)
[2017-02-26] MEDS: Silver Sulfadiazine 1% Crm 50 GM Tube TOP SCH ×2 (12:17→20:00)
[2017-02-26] MEDS ORDERED: Warfarin 2.5 MG Tab PO ONE (13:00)
[2017-02-26] MEDS: hydrOXYzine HCl 50 MG/ML SDV IM PRN (17:16)
[2017-02-26] MEDS: Insulin Aspart 100 Units/ML 3 ML Pen SUBCUT SCH (21:28)
[2017-02-27] MEDS: Magnesium Sulfate/Water 2 GM in Premix Bag 1 BAG IV SCH ×4 (03:35→22:24)
[2017-02-27] MEDS: Metoclopramide 10 MG/2 ML SDV IV SCH ×3 (05:07→17:43)
[2017-02-27] MEDS: Enoxaparin 60 MG/0.6 ML Syringe SUBCUT SCH ×2 (05:07→17:43)
[2017-02-27] MEDS: Sucralfate 1 GM Tab PO SCH ×4 (07:37→20:27)
[2017-02-27] MEDS: Pantoprazole 40 MG Tab.CR PO SCH (07:37)
[2017-02-27] MEDS: Acetaminophen/HYDROcodone 325-5 MG Tab PO PRN ×4 (07:47→21:49)
[2017-02-27] MEDS: Insulin NPH/Insulin Regular,Human 70-30 100 Units/ML 10 ML Vial SUBCUT SCH ×2 (08:14→22:35)
[2017-02-27] MEDS: Lisinopril 10 MG Tab PO SCH (08:18)
[2017-02-27] MEDS: Fluconazole 100 MG Tab PO SCH (08:18)
[2017-02-27] MEDS: Simvastatin 20 MG Tab PO SCH (08:19)
[2017-02-27] MEDS: Docusate Sodium 100 MG Cap PO SCH ×2 (08:19→21:43)
[2017-02-27] MEDS: Albumin 25% 12.5 GM/50 ML BAG IV SCH ×2 (08:19→10:21)
[2017-02-27] MEDS: Silver Sulfadiazine 1% Crm 50 GM Tube TOP SCH ×2 (08:20→21:43)
[2017-02-27] MEDS: Polyethylene Glycol 3350 Powder 17 GM Packet PO SCH (08:20)
--- NOTE | 2017-02-27 10:51 | PN ---
DATE OF SERVICE: 02/27/2017 SUBJECTIVE: Susan is postop day 4 following a panniculectomy. She reports most of her pain is from blisters from the tape. She has a large blister that has not popped on her right lateral side and large one on the left side that has popped, several along her anterior panniculectomy incision. She has been up ambulating, afebrile. Oral intake was 1740; output 10/1950. RUTH drains have put out 75, 75, 70, and 85 respectively of a light pink drainage. REVIEW OF SYSTEMS: Remainder of review of systems negative for any pertinent positives and negatives. OBJECTIVE: GENERAL: Susan Fleming is a 66-year-old female. VITAL SIGNS: TPR 98.1, 78, 18, blood pressure 160/71. O2 is 95% at 2 L. HEENT: Negative. NECK: Supple. HEART: Regular rate and rhythm. LUNGS: Clear. ABDOMEN: Dressing was taken down. Faiza in place. There is a large blister, right lateral side, and there are several smaller blisters that have popped in the anterior incision, and she has a similar size blister on her left lateral side that has popped. Nursing staff called yesterday, so she has been having Silvadene cream put on twice a day. RUTH drains x4 intact. The faiza look good. No signs of infection. The skin is holding together well. Abdominal binder has been on. EXTREMITIES: Trace peripheral edema. ASSESSMENT: 1. Tape muñiz. 2. Panniculectomy 02/24/2017. 3. Debridement of necrotizing tissue involved in infection of abdominal wall for 01/20/2017. 4. Insertion of subclavian triple lumen, wide debridement of necrotizing soft tissue of abdominal wall, and biopsy of the antrum with CLOtest, and deep tissue cultures on 02/22/2017. PLAN: 1. Evaluate for home O2. 2. Coumadin 5 mg p.o. today. 3. Teach home care of RUTH drains. Recommend strip drain measure and record RUTH drains 4 times a day and p.r.n. when half full. 4. Continue to change dressings and keep the areas clean and dry. Respiratory therapy consult in regard to home O2. 5. We will need to follow up at some point with Dr. Rai to set up a sleep apnea test. 6. Good pulmonary toilet encouraged. 7. We will evaluate p.r.n. or in a.m. Shauna Villavicencio PA-C /[id number]
[2017-02-27] MEDS: Linezolid 600 MG in Premix Bag 1 BAG IV SCH (11:48)
--- NOTE | 2017-02-27 12:58 | OR ---
DATE OF PROCEDURE: 02/23/2017 PREOPERATIVE DIAGNOSIS: Necrotizing soft tissue infection, abdominal wall. POSTOPERATIVE DIAGNOSIS: Necrotizing soft tissue infection, abdominal wall. OPERATIVE PROCEDURE: Debridement of necrotizing soft tissue infection, abdominal wall ([id number]). ANESTHESIA: Local plus IV sedation. INDICATION FOR PROCEDURE: The patient is status post debridement of a large area of necrotizing fasciitis in the abdominal wall yesterday. She has undergone inspection of the wound and an additional debridement is indicated today. Potential risks including bleeding and infection were reviewed, and the patient wishes to proceed. DETAILS OF PROCEDURE: The patient was taken to the operating room and placed in the supine position. With the IV sedation having been administered, the dressing was taken down. There was only a small area of additional necrotic material present. This was in the subcutaneous tissue and this was debrided. This did result in some bleeding, which was controlled by means of a 3-0 Vicryl stitch, and otherwise the remainder of the wound at this point appeared to be viable without additional spreading infection. The incision was then packed once again with antibiotic-soaked gauze and the patient was taken to the recovery room in satisfactory condition. The plan will be to proceed with a wider excision essentially panniculectomy tomorrow and then closure of the wound as this has now left a huge defect in an otherwise very large pannus. Blas Beckett MD /[id number]
[2017-02-27] MEDS ORDERED: Warfarin 5 MG Tab PO ONE (13:00)
[2017-02-27] MEDS: Sodium Chloride 0.9% 10 ML Syringe FLUSH PRN (17:43)
[2017-02-27] MEDS ORDERED: Potassium Chloride 20 MEQ Tab.ER PO ONE ×5 (18:32→22:00)
[2017-02-28] MEDS: Linezolid 600 MG in Premix Bag 1 BAG IV SCH (00:20)
[2017-02-28] MEDS: Metoclopramide 10 MG/2 ML SDV IV SCH ×2 (00:20→05:28)
[2017-02-28] MEDS: Magnesium Sulfate/Water 2 GM in Premix Bag 1 BAG IV SCH (03:21)
[2017-02-28] MEDS: Acetaminophen/HYDROcodone 325-5 MG Tab PO PRN ×4 (03:31→21:47)
[2017-02-28] MEDS: Enoxaparin 60 MG/0.6 ML Syringe SUBCUT SCH (05:28)
[2017-02-28] MEDS: Pantoprazole 40 MG Tab.CR PO SCH (08:01)
[2017-02-28] MEDS: Polyethylene Glycol 3350 Powder 17 GM Packet PO SCH (08:01)
[2017-02-28] MEDS: Sucralfate 1 GM Tab PO SCH ×4 (08:01→19:28)
[2017-02-28] MEDS: Simvastatin 20 MG Tab PO SCH (08:02)
[2017-02-28] MEDS: Lisinopril 10 MG Tab PO SCH (08:02)
[2017-02-28] MEDS: Docusate Sodium 100 MG Cap PO SCH ×2 (08:02→21:44)
[2017-02-28] MEDS: Fluconazole 100 MG Tab PO SCH (08:02)
--- NOTE | 2017-02-28 09:15 | OR ---
DATE OF PROCEDURE: 02/22/2017 PREOPERATIVE DIAGNOSES: 1. Necrotizing soft tissue infection of the abdominal wall. 2. Persistent nausea. 3. Limited peripheral venous access. POSTOPERATIVE DIAGNOSES: 1. Necrotizing soft tissue infection of abdominal wall (skin and subcutaneous tissue - no muscle involvement). 2. Moderate antral gastritis. 3. Limited peripheral venous access. OPERATIVE PROCEDURE: 1. Insertion of left subclavian vein triple-lumen catheter (69396). 2. Wide debridement of necrotizing soft tissue infection of abdominal wall (78256). 3. Esophagogastroduodenoscopy with antral biopsies for CLOtest (71243). ANESTHESIA: General. INDICATION FOR PROCEDURE: This is a 66-year-old diabetic patient with a large abdominal pannus, presenting with a necrotizing soft tissue infection of the lower abdominal wall. Additionally, the patient is complaining of persistent nausea over the last few weeks and has very limited peripheral venous access. Plan is to proceed with wide debridement of the abdominal wall necrotizing infection, along with upper endoscopy and insertion of triple- lumen catheter. Potential risks including bleeding, infection, pneumothorax or hemothorax and such were reviewed, and the patient wishes to proceed. DETAILS OF PROCEDURE: The patient was taken to the operating room. After general endotracheal anesthesia was induced, the upper chest and neck areas were prepped and draped. The left subclavian vein catheter was then placed using standard technique without difficulty. Good in and outflow was noted, and the ports were flushed with heparinized saline. The catheter was sutured to the skin with some 3-0 silk stitch. Subsequent chest x- ray showed no evident complications and good catheter positioning. The upper GI endoscope was passed orally through the length of esophagus and into the stomach with retroflexion view of the fundus, and thereafter, through the pyloric channel and into the proximal duodenum. Esophagus and EG junction areas were unremarkable. Stomach had some retained bile, roughly 300 mL of that was aspirated, and the patient was noted to have some antral gastritis diffusely. No erosions or ulcers were seen. Pyloric channel and the duodenum junction of the third and fourth portions were unremarkable. Biopsies were obtained from the antrum and sent for CLOtest for H. pylori. Minimal bleeding from the biopsy site was seen. The scope was then withdrawn and that procedure concluded. The patient will be started on Carafate, in addition to the PPI use postoperatively. A Luis catheter was now in place and the abdomen prepped and draped. The reddened edematous area over the central lower pannus was then sequentially debrided, including division and removal of the skin and subcutaneous tissue down to the level that appeared to be viable in all areas and without ongoing infection. There was a large amount of edema present. The entire area removed was roughly the volume of a standard football, and at that point, hemostasis was secured. The wound was packed open with gauze-containing meropenem and Zyvox and the dressing then completed. Off the field, some deep tissue cultures were obtained as well. The patient tolerated the procedure well and was taken to the recovery room in satisfactory condition. Blas Beckett MD /[id number]
[2017-02-28] MEDS: Silver Sulfadiazine 1% Crm 50 GM Tube TOP SCH ×2 (09:17→21:44)
[2017-02-28] MEDS: Insulin NPH/Insulin Regular,Human 70-30 100 Units/ML 10 ML Vial SUBCUT SCH ×2 (09:26→21:49)
[2017-02-28] MEDS ORDERED: Metoclopramide 10 MG Tab PO PRN (11:26)
[2017-02-28] MEDS ORDERED: Warfarin 2.5 MG Tab PO SCH (13:00)
[2017-03-01] MEDS: Acetaminophen/HYDROcodone 325-5 MG Tab PO PRN ×3 (01:43→15:05)
[2017-03-01 07:17] VITALS: BP 139/65
[2017-03-01] MEDS: Polyethylene Glycol 3350 Powder 17 GM Packet PO SCH (08:12)
[2017-03-01] MEDS: Sucralfate 1 GM Tab PO SCH ×2 (08:12→11:57)
[2017-03-01] MEDS: Docusate Sodium 100 MG Cap PO SCH (08:14)
[2017-03-01] MEDS: Lisinopril 10 MG Tab PO SCH (08:14)
[2017-03-01] MEDS: Pantoprazole 40 MG Tab.CR PO SCH (08:14)
[2017-03-01] MEDS: Simvastatin 20 MG Tab PO SCH (08:14)
[2017-03-01] MEDS: Fluconazole 100 MG Tab PO SCH (08:15)
[2017-03-01] MEDS: Insulin NPH/Insulin Regular,Human 70-30 100 Units/ML 10 ML Vial SUBCUT SCH (08:24)
[2017-03-01] MEDS: Silver Sulfadiazine 1% Crm 50 GM Tube TOP SCH (08:28)
--- NOTE | 2017-03-02 15:38 | DISCH ---
FINAL DIAGNOSES: 1. Necrotizing soft tissue infection, abdominal wall, involving skin and subcutaneous tissue. 2. Marked antral gastritis. 3. Limited peripheral venous access. 4. Type 2 diabetes mellitus. 5. History of deep venous thrombosis and pulmonary embolism. 6. Obesity. 7. Sepsis. 8. History of hypertension. OPERATIVE PROCEDURE: Done on 02/22; 1. Insertion of left subclavian vein triple-lumen catheter. 2. Wide debridement of necrotizing soft-tissue infection of abdominal wall. 3. Esophagogastroduodenoscopy with antral biopsies for CLOtest. Then on 02/23, debridement of necrotizing fasciitis of abdominal wall. Then on 02/24, infraumbilical panniculectomy with repair of incisional hernia. SUMMARY: This is a 66-year-old female presenting with necrotizing infection involving the lower abdominal wall. This likely arose from a recent laparoscopic trocar site in which the patient underwent a hysterectomy. The patient underwent a major debridement on 02/23, along with insertion of the central line due to limited peripheral venous access and upper endoscopy due to some ongoing epigastric pain and nausea, the latter showing an antral gastritis with a negative CLOtest. The following day, she underwent a more limited debridement, and then in order to close the abdomen, a panniculectomy along with repair of incisional hernia was performed on 02/24. Postoperatively, the patient had somewhat limited mobility, but arrangements had been made at home to facilitate discharge home at this time. Medications will include Temple 5/325 1 to 2 tabs q.4 hours p.r.n. pain, #50. Her ProTime is little bit elevated, we will hold the Coumadin today and tomorrow and then resume that on Friday. She will be following up with Dr. Beckett in [facility] on 03/05, with a ProTime to be obtained at that time.
--- NOTE | 2017-03-03 07:44 | PN ---
DATE OF SERVICE: 02/28/2017 SUBJECTIVE: Susan has chose to go home with home health care. Her family is here. Her vital signs have been stable. Her activity has been with assistance and good. She will be going home with home O2. REVIEW OF SYSTEMS: Remainder of review of systems negative for any pertinent positives and negatives. OBJECTIVE: GENERAL: Susan is a 66-year-old female. VITAL SIGNS: TPR is 99.2, 77, 18, blood pressure 129/67. O2 by pulse oximetry is 95% with 2 L. HEENT: Negative. NECK: Supple. HEART: Regular rate and rhythm. LUNGS: Clear. Tape muñiz remain unchanged. RUTH drains are intact and draining a pink serous drainage. ABDOMEN: Abdominal binder has been on. EXTREMITIES: Reveal trace peripheral edema. ASSESSMENT: 1. Tape muñiz. 2. Panniculectomy, 02/24/2017. 3. Debridement of necrotizing tissue, involved infection of abdominal wall, 02/23/2017. 4. Insertion of subclavian triple lumen, wide debridement of necrotizing soft tissue abdominal wall, and biopsy of antrum and CLOtest, and deep tissue cultures on 02/22/2017. PLAN: 1. Plan discharge in a.m. to home with home health care. 2. Discontinue IV. Discontinue Lovenox. Coumadin 7.5 mg p.o. daily. Discontinue IV antibiotics. 3. Instructions for home care were completed. 4. Discharge plan would be discharge with home health care. She will be going home with Doyline 5/325 mg 1 to 2 every 4 hours p.r.n. pain, #50; bacitracin ointment to put one film b.i.d. around RUTH drain sites; Colace 100 mg b.i.d.; MiraLAX 17 grams daily; Silvadene cream 1% to the tape muñiz. She is to resume her home medications. DISCHARGE INSTRUCTIONS: No lifting for greater than 10 pounds for 6 weeks. Drink 8 to 10 glasses of water a day. Walk short distance 6 to 8 times inside your home. May shower. Keep operative site clean and dry. Change dressing daily. Strip, empty, measure, and record RUTH drains 4 times a day and when half full. Bring record of drainage to clinic appointments. Shower daily and then place a Silvadene cream on the tape muñiz twice a day. Place bacitracin around each RUTH drain site twice a day. Notify provider if any fever, increased pain, nausea, or vomiting. Use incentive spirometer 10 times every hour while awake for 2 weeks. Use oxygen all the time 1 to 2 L. check blood sugars twice a day and bring record of sugars to clinic appointments. Shauna Villavicencio PA-C /[id number]
--- NOTE | 2017-03-06 21:25 | OR ---
DATE OF PROCEDURE: 02/24/2017 PREOPERATIVE DIAGNOSIS: Large abdominal pannus with underlying incisional hernia status post debridement of necrotizing fasciitis. POSTOPERATIVE DIAGNOSIS: Large abdominal pannus with underlying incisional hernia status post debridement of necrotizing fasciitis. PROCEDURE: 1. Infraumbilical panniculectomy (96278). 2. Repair of recurrent incisional hernia (62096). ANESTHESIA: General. WOOD PROCESSING WORKER: Shauna Villavicencio PA-C. INDICATION FOR PROCEDURE: This is a 66-year-old female presenting with necrotizing soft tissue infection and a very large abdominal pannus. She has undergone significant debridement of the pannus at the level of the necrotizing area and was fairly clean at this point. She has underlying incisional hernia, and in order to manage the pannus as well as the underlying hernia, she will undergo a panniculectomy at this time with concurrent repair of the incisional hernia. Given the somewhat contaminated nature of the procedure, mesh would not be used. Potential risks subsequent bleeding, infection, recurrence of hernia, possible cardiopulmonary, septic, or hemorrhagic complications leading to were discussed, and the patient wishes to proceed. DETAILS OF PROCEDURE: The patient was taken to the operating room and placed in a supine position. After general endotracheal anesthesia was induced, the abdomen was prepped and draped. The patient already had a Luis catheter inserted while elliptical incision was then made and carried down through the skin and subcutaneous tissue down to the level of fascia. This was more or less from hip to hip and extended below the umbilicus and then down to the suprapubic area. Staying outside of the plane of the recent debridement and subsequently down to the fascia, the subcutaneous tissue was then taken off the fascia with device. In the midline, there was a small recurrent hernia present. This was turned then and closed with [id number] stitch of #2 Vicryl stitch. This did not appear to have an incarcerated component. The pannus was then removed for the remainder of its extent and from the field. Four [place] drains were then placed through stab wounds to the main incision and the incision irrigated with a combination of Zyvox and meropenem irrigation. The incision was then closed with layers of 3-0 and 4-0 Vicryl stitch deep and faiza for the skin. Drains were sutured to skin with some 4-0 Vicryl stitch. The patient was taken to the recovery room in satisfactory condition. Physician teacher assistant, Shauna Villavicencio, played an essential role in assisting in this case, helping to retract structures as needed, position the patient and suturing and stapling when indicated. Her presence improved patient safety and decreased operative time. Blas Beckett MD /[id number]
== END 2017-03-01 15:30 | disposition home health service (06) | DRG 853 ==
LOC: JP.ED 11:47 → JP.ICU 15:33 → JP.2SS 02-21 13:45
PROVIDERS: ADMIT Hospitalist; ATTEND Surgery
PROC: 0JD80ZZ Extraction of Abdomen Subcutaneous Tissue and Fascia, Open Approach (ICD-10-PCS; principal; 2017-02-22)
PROC: 02HV33Z Insertion of Infusion Device into Superior Vena Cava, Percutaneous Approach (ICD-10-PCS; principal; 2017-02-22)
PROC: 0DB68ZX Excision of Stomach, Via Natural or Artificial Opening Endoscopic, Diagnostic (ICD-10-PCS; principal; 2017-02-22)
PROC: 0JD80ZZ Extraction of Abdomen Subcutaneous Tissue and Fascia, Open Approach (ICD-10-PCS; 2017-02-23)
PROC: 0WQF0ZZ Repair Abdominal Wall, Open Approach (ICD-10-PCS; 2017-02-24)
DX: A41.9 Sepsis, unspecified organism (principal); M72.6 Necrotizing fasciitis; L03.311 Cellulitis of abdominal wall; E11.9 Type 2 diabetes mellitus without complications; I10 Essential (primary) hypertension; Z79.01 Long term (current) use of anticoagulants; Z87.891 Personal history of nicotine dependence; Z86.718 Personal history of other venous thrombosis and embolism; Z86.711 Personal history of pulmonary embolism; Z79.4 Long term (current) use of insulin; R11.2 Nausea with vomiting, unspecified; K29.50 Unspecified chronic gastritis without bleeding; E66.9 Obesity, unspecified; K43.2 Incisional hernia without obstruction or gangrene; E65 Localized adiposity; M54.9 Dorsalgia, unspecified; G89.29 Other chronic pain; K21.9 Gastro-esophageal reflux disease without esophagitis; E78.00 Pure hypercholesterolemia, unspecified; H54.7 Unspecified visual loss; Z87.01 Personal history of pneumonia (recurrent); Z85.42 Personal history of malignant neoplasm of other parts of uterus; Z85.72 Personal history of non-Hodgkin lymphomas; Z91.040 Latex allergy status; Z88.5 Allergy status to narcotic agent; Z88.0 Allergy status to penicillin; Z88.8 Allergy status to other drugs, medicaments and biological substances
CPT/HCPCS: 36415; 71010 ×2; 74177 ×2; 80053; 81001; 82962; 83605; 85025; 85610; 86140; 87040 ×2; 96361; 96365; 96375; 99285 ×2; A9270; J0690; J2405; J7030; J7040; 76705; 76705-26; 80048; 80202; 83735; 83880; 84100; 85027; 87070; 87075; 87081; 87205; 88304; 88305; 88312; 94762; 97110-GP; 97116-GP; 97162-GP; 97530-GP; 97535-GP; C9113; J0131; J1100; J1170; J1642; J1650; J1940; J2020; J2175; J2185; J2704; J2765; J3010; J3370; J3410; J3430; J3475; J7042; J7050; J7120; P9047

== ENCOUNTER 2017-03-26 22:28 | Emergency (ER) | payer MEDICARE, BC ==
[2017-03-27] MEDS ORDERED: Albuterol/Ipratropium 3.0-0.5 MG/3 ML Neb Soln NEB ONE (00:03)
--- NOTE | 2017-03-27 00:12 | EDM.PDOC ---
ED HPI GENERAL MEDICAL PROBLEM - General Chief Complaint: Fever Stated Complaint: NAUSEA/102 FEVER/PULSE 120 Time Seen by Provider: 03/26/17 23:41 Source of Information: Reports: Patient, Family (son), Old Records, RN Notes Reviewed History Limitations: Reports: No Limitations - History of Present Illness INITIAL COMMENTS - FREE TEXT/NARRATIVE: By her daughter, with accompanying son Chief complaint: Fever chills cough HPI: 66-year-old female who is 3 weeks post hemicolectomy Was seen by her surgeon at 9 AM this morning, had one of her 2 remaining drains removed from her panniculectomy site. She was doing well. 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 Underwent laparoscopic hysterectomy at 01/07/2017 After that she started developing pain in the lower abdomen and was diagnosed with cellulitis of the abdominal wall, was admitted to this hospital in February 19. During her stay she underwent surgical debridement a total of 3 times as well as left subclavian central line insertion because of difficulty with venous access, and incisional hernia repair. Post discharge she underwent a further surgical excision of her pannus on March 06 along with repair of incisional hernia Current symptoms include chills fever, one episode of sweating, cough Mild lower abdominal discomfort. denies pain Pain Score (Numeric/FACES): 0 - Related Data Allergies Allergy/AdvReac Type Severity Reaction Status Date / Time adhesive tape Allergy Blisters Verified 03/26/17 22:58 bupropion HCl Allergy Other Verified 02/19/17 12:10 [From Wellbutrin] latex Allergy Rash Verified 02/19/17 12:10 Penicillins Allergy Rash Verified 02/19/17 12:10 ciprofloxacin [From Cipro] AdvReac Tachycardia Verified 02/19/17 12:10 codeine AdvReac Hallucinati Verified 02/19/17 12:10 ons cyclobenzaprine AdvReac Hallucinati Verified 02/19/17 12:10 ons metformin AdvReac Diarrhea Verified 02/19/17 12:10 Home Meds: Home Meds Lisinopril [Prinivil] 10 mg PO DAILY 07/25/14 [History] Pantoprazole [ProTONIX] 40 mg PO DAILY PRN 07/25/14 [History] Simvastatin [Zocor] 40 mg PO DAILY 07/25/14 [History] Insulin NPH/Insulin Reg,Human [Novolin 70-30] 56 units SQ BID 08/17/14 [History] Warfarin [Coumadin] 5 mg PO DAILY@1300 #30 tablet 07/20/16 [Rx] Acetaminophen [Tylenol] 650 mg PO Q6H PRN #0 tablet 02/28/17 [Rx] Acetaminophen/HYDROcodone [Kimberly 325-5 MG] 1 - 2 tab PO Q4H PRN #50 tablet 02/28 [Rx] Bacitracin [Bacitracin Oint] 1 film TOP BID #45 tube 02/28/17 [Rx] Docusate Sodium [Colace] 100 mg PO BID #60 cap 02/28/17 [Rx] Silver Sulfadiazine [Silvadene 1% Cream 50 GM] 1 film TOP BID #45 tube 02/28/17 [Rx] Polyethylene Glycol 3350 [MiraLAX] 17 gm PO DAILY PRN 03/26/17 [History] Warfarin [Coumadin] 2.5 mg PO DAILY 03/26/17 [History] Albuterol [IJD: Albuterol] 2.5 mg NEB Q4H PRN #25 units 03/27/17 [Rx] Budesonide [Pulmicort] 0.5 mg NEB BID #20 neb 03/27/17 [Rx] Doxycycline Monohydrate 100 mg PO BID #20 capsule 03/27/17 [Rx] Past Medical History HEENT History: Reports: Impaired Vision Cardiovascular History: Reports: Blood Clots/VTE/DVT, High Cholesterol, Hypertension, SOB on Exertion Respiratory History: Reports: Bronchitis, Recurrent, PE, Pneumonia, Recurrent, Sleep Apnea Gastrointestinal History: Reports: Cholelithiasis, GERD [employer] History: Reports: Dysfunctional 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 - Infectious Disease History Infectious Disease History: Reports: Chicken Pox, Measles, Mumps Other Infectious Disease History: Infectious hepatitis - Past Surgical History GI Surgical History: Reports: Appendectomy, Cholecystectomy, Colonoscopy, EGD, Hernia Repair/Other, Other (See Below) Other GI Surgeries/Procedures: Paniculectomy Female Surgical History: Reports: Section, D&C, Hysterectomy Social & Family History - Family History Cardiac: Reports: CAD - Tobacco Use Smoking Status *Q: Former Smoker Years of Tobacco use: 50 Packs/Tins Daily: 1 Used Tobacco, but Quit: Yes Month Tobacco Last Used: July 2016 Second Hand Smoke Exposure: Yes - Caffeine Use Caffeine Use: Reports: Coffee, Soda - Alcohol Use Days Per Week of Alcohol Use: 0 - Recreational Drug Use Recreational Drug Use: No ED ROS GENERAL - Review of Systems Review Of Systems: See Below Constitutional: Reports: Fever, Chills HEENT: Reports: Rhinitis (Mild). Denies: Ear Pain, Eye Pain, Throat Pain Respiratory: Reports: Shortness of Breath, Wheezing, Cough. Denies: Pleuritic Chest Pain, Hemoptysis Cardiovascular: Reports: Dyspnea on Exertion, Palpitations (Feels her heart racing). Denies: Chest Pain, Lightheadedness, Syncope Endocrine: Reports: Fatigue GI/Abdominal: Reports: Abdominal Pain (. Mild), Decreased Appetite, Nausea, Other (Postoperative wound lower abdomen). Denies: Diarrhea, Vomiting : Reports: No Symptoms Musculoskeletal: Reports: No Symptoms Skin: Reports: Erythema (Lower abdominal wall). Denies: Rash Neurological: Reports: No Symptoms Psychiatric: Reports: No Symptoms Hematologic/Lymphatic: Reports: No Symptoms Immunologic: Reports: No Symptoms ED EXAM, GENERAL - Physical Exam Exam: See Below Exam Limited By: No Limitations General Appearance: Alert, Moderate Distress Eye Exam: Bilateral Eye: Normal Inspection Ears: Normal External Exam, Normal Canal, Hearing Grossly Normal, Normal TMs Nose: Normal Inspection, Normal Mucosa Throat/Mouth: Normal Inspection, Normal Lips, Normal Oropharynx, Normal Voice Head: Atraumatic, Normocephalic Neck: Normal Inspection, Supple Respiratory/Chest: Chest Non-Tender, Rhonchi, Wheezing, Accessory Muscle Use, Other (Increased effort) Cardiovascular: Regular Rate, Rhythm, No Murmur, Tachycardia (Rate 110) GI/Abdominal: Normal Bowel Sounds, Soft, Non-Tender, Other (Large body size makes examination difficult; stapled wound across the lower abdomen which appears to be noninfectedDrain sites are somewhat.Erythema of the lower anterior wall with mild warmth) (Female) Exam: Normal External Exam Neurological: Alert, Oriented, No Motor/Sensory Deficits Psychiatric: Anxious Skin Exam: Warm, Dry, Intact Lymphatic: No Adenopathy (And short while after) Course - Vital Signs Last Recorded V/S: Last Vital Signs Temp 38.2 C H 03/27/17 00:51 Pulse 124 H 03/27/17 00:51 Resp 20 03/27/17 00:51 BP 161/93 H 03/27/17 00:51 Pulse Ox 92 L 03/27/17 00:51 - Orders/Labs/Meds Orders: Active Orders 24 hr Category Date Time Status RT Aerosol Therapy [RC] ASDIRECTED Care 03/27/17 00:03 Active RT Aerosol Therapy [RC] ASDIRECTED Care 03/27/17 01:07 Active Chest 2V [CR] Stat Exams 03/27/17 00:02 Taken CULTURE BLOOD [BC] Urgent Lab 03/27/17 00:18 Received CULTURE BLOOD [BC] Urgent Lab 03/27/17 00:18 Received CULTURE WOUND + SMEAR [RM] Stat Lab 03/27/17 00:18 Results Blood Culture x2 Reflex Set [OM.PC] Urgent Oth 03/27/17 00:02 Ordered Durable Medical Equipment for Discharge [DME for Oth 03/27/17 01:43 Ordered Discharge] [COMM] Stat Labs: Laboratory Tests 03/27/17 03/27/17 03/27/17 Range/Units 00:18 00:18 00:18 WBC 11.6 H (4.5-11.0) K/uL RBC 4.64 (3.30-5.50) M/uL Hgb 11.8 L (12.0-15.0) g/dL Hct 36.6 (36.0-48.0) % MCV 79 L (80-98) fL MCH 25 L (27-31) pg MCHC 32 (32-36) % Plt Count 216 (150-400) K/uL Sodium 140 (140-148) mmol/L Potassium 3.7 (3.6-5.2) mmol/L Chloride 102 (100-108) mmol/L Carbon Dioxide 31 (21-32) mmol/L Anion Gap 7.1 (5.0-14.0) mmol/L BUN 13 D (7-18) mg/dL Creatinine 0.8 (0.6-1.0) mg/dL Est Cr Clr Drug Dosing 52.20 mL/min Estimated GFR (MDRD) > 60 (>60) Glucose 153 H (74-106) mg/dL Lactic Acid 1.4 (0.4-2.0) mmol/L Calcium 8.1 L (8.5-10.1) mg/dL Total Bilirubin 0.3 (0.2-1.0) mg/dL AST 9 L (15-37) U/L ALT 19 (12-78) U/L Alkaline Phosphatase 77 (46-116) U/L Total Protein 6.8 (6.4-8.2) g/dL Albumin 2.7 L (3.4-5.0) g/dL Globulin 4.1 H (2.3-3.5) g/dL Albumin/Globulin Ratio 0.7 L (1.2-2.2) Urine Color Urine Appearance Urine pH (4.5-8.0) Ur Specific [place] (1.008-1.030) Urine Protein (NEGATIVE) mg/dL Urine Glucose (UA) (NEGATIVE) mg/dL Urine Ketones (NEGATIVE) mg/dL Urine Occult Blood (NEGATIVE) Urine Nitrite (NEGATIVE) Urine Bilirubin (NEGATIVE) Urine Urobilinogen (NORMAL) mg/dL Ur Leukocyte Esterase (NEGATIVE) Urine RBC (0-5) Urine WBC (0-5) Ur Epithelial Cells Amorphous Sediment Urine Bacteria Urine Mucus 03/27/17 Range/Units 00:57 WBC (4.5-11.0) K/uL RBC (3.30-5.50) M/uL Hgb (12.0-15.0) g/dL Hct (36.0-48.0) % MCV (80-98) fL MCH (27-31) pg MCHC (32-36) % Plt Count (150-400) K/uL Sodium (140-148) mmol/L Potassium (3.6-5.2) mmol/L Chloride (100-108) mmol/L Carbon Dioxide (21-32) mmol/L Anion Gap (5.0-14.0) mmol/L BUN (7-18) mg/dL Creatinine (0.6-1.0) mg/dL Est Cr Clr Drug Dosing mL/min Estimated GFR (MDRD) (>60) Glucose (74-106) mg/dL Lactic Acid (0.4-2.0) mmol/L Calcium (8.5-10.1) mg/dL Total Bilirubin (0.2-1.0) mg/dL AST (15-37) U/L ALT (12-78) U/L Alkaline Phosphatase (46-116) U/L Total Protein (6.4-8.2) g/dL Albumin (3.4-5.0) g/dL Globulin (2.3-3.5) g/dL Albumin/Globulin Ratio (1.2-2.2) Urine Color Yellow Urine Appearance Clear Urine pH 6.5 (4.5-8.0) Ur Specific [place] 1.010 (1.008-1.030) Urine Protein Negative (NEGATIVE) mg/dL Urine Glucose (UA) Normal (NEGATIVE) mg/dL Urine Ketones Negative (NEGATIVE) mg/dL Urine Occult Blood Negative (NEGATIVE) Urine Nitrite Negative (NEGATIVE) Urine Bilirubin Negative (NEGATIVE) Urine Urobilinogen Normal (NORMAL) mg/dL Ur Leukocyte Esterase Negative (NEGATIVE) Urine RBC 0-5 (0-5) Urine WBC 0-5 (0-5) Ur Epithelial Cells Many Amorphous Sediment Not seen Urine Bacteria Not seen Urine Mucus Not seen Meds: Medications Discontinued Medications Generic Name Dose Route Start Last Admin Trade Name Kelle PRN Reason Stop Dose Admin Acetaminophen 1,000 mg 03/27/17 00:36 03/27/17 00:53 Tylenol Extra Strength PO 03/27/17 00:37 1,000 mg ONETIME ONE Administration Albuterol 2.5 mg 03/27/17 01:07 03/27/17 01:18 Proventil Neb Soln NEB 03/27/17 01:08 2.5 mg ONETIME ONE Administration Albuterol/Ipratropium 3 ml 03/27/17 00:03 03/27/17 00:15 Duoneb 3.0-0.5 Mg/3 Ml NEB 03/27/17 00:04 3 ml ONETIME ONE Administration Budesonide 0.5 mg 03/27/17 01:07 03/27/17 01:17 Pulmicort NEB 03/27/17 01:08 0.5 mg ONETIME ONE Administration Ondansetron HCl 4 mg 03/27/17 00:19 03/27/17 00:33 Zofran Odt PO 03/27/17 00:20 4 mg ONETIME ONE Administration - Re-Assessments/Exams Free Text/Narrative Re-Assessment/Exam: 03/27/17 00:34 A 66-year-old female with type 2 diabetes, or panniculectomy 3 weeks ago, that was final procedure after debridement of necrotizing fasciitis of the abdominal wall. Short of breath today with wheezing. Differential diagnosis include cellulitis causing the fever versus bronchitis or pneumonia. She is difficult to get an IV Blood cultures ordered as well as labs Wound swab from her drain sites sent for culture Ondansetron 4 mg by mouth Duo neb/albuterol/ipratropium given with considerable improvement in her breathing, she was able to discontinue the oxygen 03/27/17 01:16 WBC is 11.6 and lactic acid normal at 1.4 Urinalysis within normal limits Liver tests normal GFR over 60 Glucose 153 Chest x-ray negative for pneumonia by my interpretation Repeat examination shows improvement in her breathing and less wheezing Albuterol 2.5 mg repeated by neb Budesonide 0.3 mg by nebulizer Impression Acute bronchitis with bronchospasm Postop panniculectomy She has a followup appointment tomorrow Home nebulizer with albuterol and budesonide, the latter for 10 days 03/27/17 01:44 Departure - Departure Time of Disposition: 01:39 Disposition: Home, Self-Care 01 Condition: good Clinical Impression: Acute bronchitis with bronchospasm, History of major abdominal surgery - Discharge Information Prescriptions: Albuterol [IJD: Albuterol] 2.5 mg NEB Q4H PRN #25 units PRN Reason: Cough or wheezing Budesonide [Pulmicort] 0.5 mg NEB BID #20 neb Doxycycline Monohydrate 100 mg PO BID #20 capsule Instructions: Bronchospasm, Adult, Acute Bronchitis, [id number] Referrals: Jim Rai MD [Primary Care Provider] - Forms: ED Department Discharge Additional Instructions: The budesonide is a steroid to reduce the swelling in your airways, is used regularly twice daily. The albuterol as a bronchodilator, it relaxes the muscles of the airways, it relieves the spasm in the muscles that narrow the airways and cough wheezing Is used as needed Home nebulizer is being prescribed You're being prescribed doxycycline for the bronchitis as an antibiotic Sometimes this can interfere with the Coumadin, so have your INR rechecked in the next week Keep your appointment with your physician as arranged - My Orders Last 24 Hours: My Active Orders 03/27/17 00:02 Chest 2V [CR] Stat Blood Culture x2 Reflex Set [OM.PC] Urgent 03/27/17 00:03 RT Aerosol Therapy [RC] ASDIRECTED 03/27/17 00:18 CULTURE BLOOD [BC] Urgent CULTURE BLOOD [BC] Urgent CULTURE WOUND + SMEAR [RM] Stat 03/27/17 01:07 RT Aerosol Therapy [RC] ASDIRECTED 03/27/17 01:43 Durable Medical Equipment for Discharge [DME for Discharge] [COMM] Stat - Assessment/Plan Last 24 Hours: My Active Orders 03/27/17 00:02 Chest 2V [CR] Stat Blood Culture x2 Reflex Set [OM.PC] Urgent 03/27/17 00:03 RT Aerosol Therapy [RC] ASDIRECTED 03/27/17 00:18 CULTURE BLOOD [BC] Urgent CULTURE BLOOD [BC] Urgent CULTURE WOUND + SMEAR [RM] Stat 03/27/17 01:07 RT Aerosol Therapy [RC] ASDIRECTED 03/27/17 01:43 Durable Medical Equipment for Discharge [DME for Discharge] [COMM] Stat
[2017-03-27] MEDS ORDERED: Ondansetron 4 MG Tab.DIS PO ONE (00:19)
[2017-03-27] MEDS ORDERED: Acetaminophen 500 MG Tab PO ONE (00:36)
[2017-03-27 00:52] VITALS: BP 161/93
[2017-03-27] MEDS ORDERED: Budesonide 0.5 MG/2 ML Neb Susp NEB ONE (01:07)
[2017-03-27] MEDS ORDERED: Albuterol 0.083% 2.5 MG/3 ML Neb Soln NEB ONE (01:07)
--- NOTE | 2017-03-27 09:13 | CR ---
Heart size within normal limits. Pulmonary vasculature within normal limits. Degenerative changes of the thoracic spine. No focal consolidation.
== END 2017-03-27 02:14 | disposition home or self-care (01) ==
LOC: JP.ED 22:28
DX: J20.9 Acute bronchitis, unspecified (principal); E11.9 Type 2 diabetes mellitus without complications; I10 Essential (primary) hypertension; E78.00 Pure hypercholesterolemia, unspecified; E66.9 Obesity, unspecified; Z98.890 Other specified postprocedural states; Z90.49 Acquired absence of other specified parts of digestive tract; Z87.891 Personal history of nicotine dependence; Z90.89 Acquired absence of other organs; Z79.899 Other long term (current) drug therapy; Z79.4 Long term (current) use of insulin; Z79.01 Long term (current) use of anticoagulants; Z79.2 Long term (current) use of antibiotics; Z91.048 Other nonmedicinal substance allergy status; Z88.0 Allergy status to penicillin; Z88.1 Allergy status to other antibiotic agents; Z88.5 Allergy status to narcotic agent
CPT/HCPCS: 36415; 71020; 80053; 81001; 83605; 85027; 87040; 87070; 87205; 94640; 99284; A9270; J7620; 87077; 87186

== ENCOUNTER 2017-04-25 17:18 | Emergency (ER) | payer MEDICARE, BC ==
[2017-04-25] MEDS ORDERED: Mupirocin Oint 22 GM Tube TOP ONE (20:03)
[2017-04-25 20:18] VITALS: BP 172/74
--- NOTE | 2017-04-25 20:37 | EDM.PDOC ---
ED HPI GENERAL MEDICAL PROBLEM - General Chief Complaint: General Stated Complaint: DRAIN TUBE LEAKING Time Seen by Provider: 04/25/17 18:03 Source of Information: Reports: Patient History Limitations: Reports: No Limitations - History of Present Illness INITIAL COMMENTS - FREE TEXT/NARRATIVE: RUTH tube dysfunction; this is a 66 year old female present to ER for concerns of RUTH tube is not draining, now has leaking at the opening of abdomen, where tubing. mild abdominal pain. also out of pain medications. denies any fever, chills, nausea, vomiting or diarrhea. taking Doxy 100mg bid for upper respiratory track infection. Onset: Sudden Duration: Day(s): Location: Reports: Abdomen Quality: Reports: Ache Severity: Mild Improves with: Reports: None Worsens with: Reports: None Context: Reports: Other (surgery ) Associated Symptoms: Reports: No Other Symptoms Lower Abdomen Pain Score (Numeric/FACES): 3 - Related Data Allergies Allergy/AdvReac Type Severity Reaction Status Date / Time adhesive tape Allergy Blisters Verified 04/25/17 17:38 bupropion HCl Allergy Other Verified 04/25/17 17:38 [From Wellbutrin] latex Allergy Rash Verified 04/25/17 17:38 Penicillins Allergy Rash Verified 04/25/17 17:38 ciprofloxacin [From Cipro] AdvReac Tachycardia Verified 04/25/17 17:38 codeine AdvReac Hallucinati Verified 04/25/17 17:38 ons cyclobenzaprine AdvReac Hallucinati Verified 04/25/17 17:38 ons metformin AdvReac Diarrhea Verified 04/25/17 17:38 Home Meds: Home Meds Lisinopril [Prinivil] 10 mg PO DAILY 07/25/14 [History] Pantoprazole [ProTONIX] 40 mg PO DAILY PRN 07/25/14 [History] Simvastatin [Zocor] 40 mg PO DAILY 07/25/14 [History] Insulin NPH/Insulin Reg,Human [Novolin 70-30] 56 units SQ BID 08/17/14 [History] Warfarin [Coumadin] 5 mg PO DAILY@1300 #30 tablet 07/20/16 [Rx] Acetaminophen [Tylenol] 650 mg PO Q6H PRN #0 tablet 02/28/17 [Rx] Acetaminophen/HYDROcodone [[place] 325-5 MG] 1 - 2 tab PO Q4H PRN #50 tablet 02/28 [Rx] Bacitracin [Bacitracin Oint] 1 film TOP BID #45 tube 02/28/17 [Rx] Docusate Sodium [Colace] 100 mg PO BID #60 cap 02/28/17 [Rx] Silver Sulfadiazine [Silvadene 1% Cream 50 GM] 1 film TOP BID #45 tube 02/28/17 [Rx] Polyethylene Glycol 3350 [MiraLAX] 17 gm PO DAILY PRN 03/26/17 [History] Warfarin [Coumadin] 2.5 mg PO DAILY 03/26/17 [History] Albuterol [IJD: Albuterol] 2.5 mg NEB Q4H PRN #25 units 03/27/17 [Rx] Budesonide [Pulmicort] 0.5 mg NEB BID #20 neb 03/27/17 [Rx] Doxycycline Monohydrate 100 mg PO BID #20 capsule 03/27/17 [Rx] Doxycycline [Doxycycline Hyclate] 100 mg PO BID 04/25/17 [History] Past Medical History HEENT History: Reports: Impaired Vision Cardiovascular History: Reports: Blood Clots/VTE/DVT, High Cholesterol, Hypertension, SOB on Exertion Respiratory History: Reports: Bronchitis, Recurrent, PE, Pneumonia, Recurrent, Sleep Apnea Gastrointestinal History: Reports: Cholelithiasis, GERD 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 - Infectious Disease History Infectious Disease History: Reports: Chicken Pox, Measles, Mumps Other Infectious Disease History: Infectious hepatitis - Past Surgical History GI Surgical History: Reports: Appendectomy, Cholecystectomy, Colonoscopy, EGD, Hernia Repair/Other, Other (See Below) Other GI Surgeries/Procedures: Paniculectomy Female Surgical History: Reports: Section, D&C, Hysterectomy Social & Family History - Family History Cardiac: Reports: CAD - Tobacco Use Smoking Status *Q: Former Smoker Years of Tobacco use: 50 Packs/Tins Daily: 1 Used Tobacco, but Quit: Yes Month Tobacco Last Used: July2016 Second Hand Smoke Exposure: Yes - Caffeine Use Caffeine Use: Reports: Coffee - Alcohol Use Days Per Week of Alcohol Use: 0 - Recreational Drug Use Recreational Drug Use: No ED ROS GENERAL - Review of Systems Review Of Systems: See Below Constitutional: Reports: No Symptoms HEENT: Reports: No Symptoms Respiratory: Reports: No Symptoms Cardiovascular: Reports: No Symptoms Endocrine: Reports: No Symptoms GI/Abdominal: Reports: Abdominal Pain, Other (RUTH tube dysfunction) : Reports: No Symptoms Musculoskeletal: Reports: No Symptoms Skin: Reports: No Symptoms Neurological: Reports: No Symptoms Psychiatric: Reports: No Symptoms Hematologic/Lymphatic: Reports: No Symptoms Immunologic: Reports: No Symptoms ED EXAM, GENERAL - Physical Exam Exam: See Below Exam Limited By: No Limitations General Appearance: Alert, WD/WN, No Apparent Distress Eye Exam: Bilateral Eye: Normal Inspection Ears: Normal External Exam, Normal Canal, Hearing Grossly Normal, Normal TMs Ear Exam: Bilateral Ear: Auricle Normal, Canal Normal, TM normal Nose: Normal Inspection, Normal Mucosa, No Blood Throat/Mouth: Normal Inspection, Normal Lips, Normal Teeth, Normal Gums, Normal Oropharynx, Normal Voice, No Airway Compromise Head: Atraumatic, Normocephalic Neck: Normal Inspection, Supple, Non-Tender, Full Range of Motion Respiratory/Chest: No Respiratory Distress, Lungs Clear, Normal Breath Sounds, No Accessory Muscle Use, Chest Non-Tender Cardiovascular: Normal Peripheral Pulses, Regular Rate, Rhythm, No Edema, No Gallop, No JVD, No Murmur, No Rub Peripheral Pulses: 2+: Posterior Tibial (L), Posterior Tibial (R), Dorsalis Pedis (L), Dorsalis Pedis (R) GI/Abdominal: Soft, Tender (lower abdomen near site of RUTH tube, scant discharge is noted. RUTH with pale green discharge.) (Female) Exam: Deferred Rectal (Female) Exam: Deferred Extremities: Normal Inspection, Normal Range of Motion, Non-Tender, Normal Capillary Refill, No Pedal Edema Neurological: Alert, Oriented, CN II-XII Intact, Normal Cognition, Normal Gait, Normal Reflexes, No Motor/Sensory Deficits Psychiatric: Normal Affect, Normal Mood Skin Exam: Warm, Dry, Other (lower abdomen with well healed surgical incision, RUTH intact , mild redness near RUTH) Lymphatic: No Adenopathy Course - Vital Signs Last Recorded V/S: Last Vital Signs Temp 37.2 C 04/25/17 20:16 Pulse 94 04/25/17 20:16 Resp 20 04/25/17 20:16 BP 172/74 H 04/25/17 20:16 Pulse Ox 94 L 04/25/17 20:16 - Orders/Labs/Meds Orders: Active Orders 24 hr Category Date Time Status Abdomen Pelvis wo Cont [CT] Stat Exams 04/25/17 18:20 Taken Labs: Laboratory Tests 04/25/17 04/25/17 04/25/17 Range/Units 18:19 18:19 18:19 WBC 8.1 (4.5-11.0) K/uL RBC 4.47 (3.30-5.50) M/uL Hgb 10.5 L (12.0-15.0) g/dL Hct 35.0 L (36.0-48.0) % MCV 78 L (80-98) fL MCH 24 L (27-31) pg MCHC 30 L (32-36) % Plt Count 263 (150-400) K/uL Neut % (Auto) 75 H (36-66) % Lymph % (Auto) 15 L (24-44) % Towns % (Auto) 8 H (2-6) % Eos % (Auto) 2 (2-4) % Baso % (Auto) 1 (0-1) % Sodium 140 (140-148) mmol/L Potassium 3.9 (3.6-5.2) mmol/L Chloride 104 (100-108) mmol/L Carbon Dioxide 30 (21-32) mmol/L Anion Gap 5.6 (5.0-14.0) mmol/L BUN 11 (7-18) mg/dL Creatinine 0.8 (0.6-1.0) mg/dL Est Cr Clr Drug Dosing 52.20 mL/min Estimated GFR (MDRD) > 60 (>60) Glucose 288 H (74-106) mg/dL Lactic Acid 1.2 (0.4-2.0) mmol/L Calcium 8.7 (8.5-10.1) mg/dL Total Bilirubin 0.2 (0.2-1.0) mg/dL AST 7 L (15-37) U/L ALT 10 L (12-78) U/L Alkaline Phosphatase 82 (46-116) U/L Total Protein 6.8 (6.4-8.2) g/dL Albumin 2.3 L (3.4-5.0) g/dL Globulin 4.5 H (2.3-3.5) g/dL Albumin/Globulin Ratio 0.5 L (1.2-2.2) Amylase (25-115) U/L Lipase (73-393) U/L 04/25/ Range/Units 18:19 WBC (4.5-11.0) K/uL RBC (3.30-5.50) M/uL Hgb (12.0-15.0) g/dL Hct (36.0-48.0) % MCV (80-98) fL MCH (27-31) pg MCHC (32-36) % Plt Count (150-400) K/uL Neut % (Auto) (36-66) % Lymph % (Auto) (24-44) % Towns % (Auto) (2-6) % Eos % (Auto) (2-4) % Baso % (Auto) (0-1) % Sodium (140-148) mmol/L Potassium (3.6-5.2) mmol/L Chloride (100-108) mmol/L Carbon Dioxide (21-32) mmol/L Anion Gap (5.0-14.0) mmol/L BUN (7-18) mg/dL Creatinine (0.6-1.0) mg/dL Est Cr Clr Drug Dosing mL/min Estimated GFR (MDRD) (>60) Glucose (74-106) mg/dL Lactic Acid (0.4-2.0) mmol/L Calcium (8.5-10.1) mg/dL Total Bilirubin (0.2-1.0) mg/dL AST (15-37) U/L ALT (12-78) U/L Alkaline Phosphatase (46-116) U/L Total Protein (6.4-8.2) g/dL Albumin (3.4-5.0) g/dL Globulin (2.3-3.5) g/dL Albumin/Globulin Ratio (1.2-2.2) Amylase 33 (25-115) U/L Lipase 64 L (73-393) U/L Meds: Medications Discontinued Medications Generic Name Dose Route Start Last Admin Trade Name Kelle PRN Reason Stop Dose Admin Bacitracin 1 dose 04/25/17 20:39 04/25/17 20:43 Bacitracin Oint 1 Gm TOP 04/25/17 20:40 1 dose ONETIME ONE Administration Mupirocin 1 gm 04/25/17 20:03 Bactroban Oint TOP 04/25/17 20:04 ONETIME ONE - Re-Assessments/Exams Free Text/Narrative Re-Assessment/Exam: 04/25/17 -consult with Surgery Service, reviewed CT abdomen-pelvis and labs results. Per Shauna Villavicencio NP -in ER strip tubing -apply bacitracin ointment to entrance area/skin, then apply bandage and tape in place -advise to shower daily with anti-bacteria soap, allow water to spray over area for 20 minutes -will be seen on Friday for recheck -return to ER if not improving or has any concerns. Departure - Departure Time of Disposition: 20:53 Disposition: Home, Self-Care 01 Condition: Good Clinical Impression: Abdominal wall fluid collections - Discharge Information Instructions: Abdominal Pain, Adult Referrals: Jim Rai MD [Primary Care Provider] - Forms: ED Department Discharge Care Plan Goals: abdominal fluid collections -consult with ELIGIO Alexander, will plan to see on Friday for follow-up -continue RUTH bottle, strip line as needed, keep secured to body, do not allow to pull or tug at tubing -apply bactracin ointment around entrance wound, apply dressing to keep skin clean and dry -advise to shower with dial soap or other antibiotic soap, allow water to drain around site for 20 minutes Return to ER for any increased pain, fever, chills, nausea, vomiting or any concerns. instyMeds for pain control; Hydrocodone 5-325mg 1-2 tabs by mouth every 4 to 6 hours as needed for pain control #30 - Problem List & Annotations (1) Abdominal wall fluid collections SNOMED Code(s): 134082280 Code(s): R18.8 - OTHER ASCITES Status: Acute Priority: High - Problem List Review Problem List Initiated/Reviewed/Updated: Yes - My Orders Last 24 Hours: My Active Orders 04/25/17 18:20 Abdomen Pelvis wo Cont [CT] Stat - Assessment/Plan Last 24 Hours: My Active Orders 04/25/17 18:20 Abdomen Pelvis wo Cont [CT] Stat Plan: abdominal fluid collections -consult with ELIGIO Alexander, will plan to see on Friday for follow-up -continue RUTH bottle, strip line as needed, keep secured to body, do not allow to pull or tug at tubing -apply bactracin ointment around entrance wound, apply dressing to keep skin clean and dry -advise to shower with dial soap or other antibiotic soap, allow water to drain around site for 20 minutes Return to ER for any increased pain, fever, chills, nausea, vomiting or any concerns. instyMeds for pain control; Hydrocodone 5-325mg 1-2 tabs by mouth every 4 to 6 hours as needed for pain control #30
[2017-04-25] MEDS ORDERED: Bacitracin Oint 1 GM U/D Packet TOP ONE (20:39)
== END 2017-04-25 20:53 | disposition home or self-care (01) ==
LOC: JP.ED 17:18
DX: T85.638A Leakage of other specified internal prosthetic devices, implants and grafts, initial encounter (principal); R18.8 Other ascites; E11.9 Type 2 diabetes mellitus without complications; E66.9 Obesity, unspecified; I10 Essential (primary) hypertension; E78.00 Pure hypercholesterolemia, unspecified; K21.9 Gastro-esophageal reflux disease without esophagitis; Z85.72 Personal history of non-Hodgkin lymphomas; Z85.42 Personal history of malignant neoplasm of other parts of uterus; Z87.890 Personal history of sex reassignment; Z90.710 Acquired absence of both cervix and uterus; Z90.49 Acquired absence of other specified parts of digestive tract; Z98.890 Other specified postprocedural states; Z79.4 Long term (current) use of insulin; Z79.2 Long term (current) use of antibiotics; Z79.01 Long term (current) use of anticoagulants; Z79.899 Other long term (current) drug therapy; Z88.0 Allergy status to penicillin; Z88.1 Allergy status to other antibiotic agents; Z88.5 Allergy status to narcotic agent; Z88.8 Allergy status to other drugs, medicaments and biological substances
CPT/HCPCS: 36415; 74176; 80053; 82150; 83605; 83690; 85025; 99284; A9270

== ENCOUNTER 2017-06-27 13:56 | Emergency (ER) | payer MEDICARE, BC ==
[2017-06-27 15:27] VITALS: BP 178/88
--- NOTE | 2017-06-27 16:31 | EDM.PDOC ---
ED HPI GENERAL MEDICAL PROBLEM - General Chief Complaint: Respiratory Problem Stated Complaint: PNEUMONIA Time Seen by Provider: 06/27/17 16:15 Source of Information: Reports: Patient, Family History Limitations: Reports: No Limitations - History of Present Illness INITIAL COMMENTS - FREE TEXT/NARRATIVE: 66-year-old female who was had a persistent cough for several weeks, has had 2 courses of antibiotics and 2 chest x-rays showing "pneumonia". She was started on prednisone 3 days ago and told that if she wasn't improved by today she should be checked in the emergency room. She feels somewhat better but her family insisted she come in and be checked because she still has some much coughing. Upper Chest Pain Score (Numeric/FACES): 2 - Related Data Allergies Allergy/AdvReac Type Severity Reaction Status Date / Time adhesive tape Allergy Blisters Verified 06/27/17 16:15 bupropion HCl Allergy Other Verified 06/27/17 16:15 [From Wellbutrin] latex Allergy Rash Verified 06/27/17 16:15 Penicillins Allergy Rash Verified 06/27/17 16:15 ciprofloxacin [From Cipro] AdvReac Tachycardia Verified 06/27/17 16:15 codeine AdvReac Hallucinati Verified 06/27/17 16:15 ons cyclobenzaprine AdvReac Hallucinati Verified 06/27/17 16:15 ons metformin AdvReac Diarrhea Verified 06/27/17 16:15 Home Meds: Home Meds Lisinopril [Prinivil] 10 mg PO DAILY 07/25/14 [History] Pantoprazole [ProTONIX] 40 mg PO DAILY PRN 07/25/14 [History] Simvastatin [Zocor] 40 mg PO DAILY 07/25/14 [History] Insulin NPH/Insulin Reg,Human [Novolin 70-30] 56 units SQ BID 08/17/14 [History] Warfarin [Coumadin] 5 mg PO DAILY@1300 #30 tablet 07/20/16 [Rx] Acetaminophen [Tylenol] 650 mg PO Q6H PRN #0 tablet 02/28/17 [Rx] Acetaminophen/HYDROcodone [[place] 325-5 MG] 1 - 2 tab PO Q4H PRN #50 tablet 02/28 [Rx] Bacitracin [Bacitracin Oint] 1 film TOP BID #45 tube 02/28/17 [Rx] Docusate Sodium [Colace] 100 mg PO BID #60 cap 02/28/17 [Rx] Silver Sulfadiazine [Silvadene 1% Cream 50 GM] 1 film TOP BID #45 tube 02/28/17 [Rx] Polyethylene Glycol 3350 [MiraLAX] 17 gm PO DAILY PRN 03/26/17 [History] Warfarin [Coumadin] 2.5 mg PO DAILY 03/26/17 [History] Albuterol [IJD: Albuterol] 2.5 mg NEB Q4H PRN #25 units 03/27/17 [Rx] Budesonide [Pulmicort] 0.5 mg NEB BID #20 neb 03/27/17 [Rx] Doxycycline Monohydrate 100 mg PO BID #20 capsule 03/27/17 [Rx] Doxycycline [Doxycycline Hyclate] 100 mg PO BID 04/25/17 [History] Cefdinir 300 mg PO BID 06/27/17 [History] predniSONE [Prednisone] 20 mg PO ASDIRECTED 06/27/17 [History] Past Medical History HEENT History: Reports: Impaired Vision Cardiovascular History: Reports: Blood Clots/VTE/DVT, High Cholesterol, Hypertension, SOB on Exertion Respiratory History: Reports: Bronchitis, Recurrent, PE, Pneumonia, Recurrent, Sleep Apnea Gastrointestinal History: Reports: Cholelithiasis, GERD 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 - Infectious Disease History Infectious Disease History: Reports: Chicken Pox, Measles, Mumps Other Infectious Disease History: Infectious hepatitis - Past Surgical History GI Surgical History: Reports: Appendectomy, Cholecystectomy, Colonoscopy, EGD, Hernia Repair/Other, Other (See Below) Other GI Surgeries/Procedures: Paniculectomy Female Surgical History: Reports: Section, D&C, Hysterectomy Social & Family History - Family History Cardiac: Reports: CAD - Tobacco Use Smoking Status *Q: Former Smoker Years of Tobacco use: 50 Packs/Tins Daily: 1 Used Tobacco, but Quit: Yes Month Tobacco Last Used: Jul 2016 Second Hand Smoke Exposure: Yes - Caffeine Use Caffeine Use: Reports: Coffee - Alcohol Use Days Per Week of Alcohol Use: 0 - Recreational Drug Use Recreational Drug Use: No ED ROS GENERAL - Review of Systems Review Of Systems: See Below Constitutional: Reports: Malaise. Denies: Fever, Chills HEENT: Denies: Throat Pain Respiratory: Reports: Shortness of Breath, Wheezing, Cough. Denies: Sputum Cardiovascular: Denies: Chest Pain, Palpitations GI/Abdominal: Reports: No Symptoms Skin: Reports: No Symptoms Neurological: Denies: Headache Psychiatric: Reports: No Symptoms ED EXAM, GENERAL - Physical Exam Exam: See Below Exam Limited By: No Limitations General Appearance: Alert, No Apparent Distress Respiratory/Chest: No Respiratory Distress, Wheezing (Scattered expiratory wheezes but good air movement to the bases) Cardiovascular: Regular Rate, Rhythm. No: Tachycardia Extremities: No Pedal Edema Neurological: Alert, Oriented Psychiatric: Normal Affect, Normal Mood Skin Exam: Warm, Dry Course - Vital Signs Last Recorded V/S: Last Vital Signs Temp 97.4 F 06/27/17 15:51 Pulse 84 06/27/17 15:51 Resp 18 06/27/17 15:51 BP 178/88 H 06/27/17 15:51 Pulse Ox 96 06/27/17 15:51 Departure - Departure Time of Disposition: 17:06 Disposition: Home, Self-Care 01 Condition: Fair Clinical Impression: Viral bronchitis - Discharge Information Instructions: Acute Bronchitis, [id number] Referrals: Jim Rai MD [Primary Care Provider] - Forms: ED Department Discharge Care Plan Goals: Take 80 mg of prednisone tomorrow and another 80 mg on Friday, and continue the antibiotic as prescribed. Continue your pulmonary inhalers and nebulizers as needed. Return anytime to the emergency room if you feel you are worsening, or recheck Friday as scheduled with Dr. Rai.
== END 2017-06-27 17:06 | disposition home or self-care (01) ==
LOC: JP.ED 13:56
DX: J20.8 Acute bronchitis due to other specified organisms (principal); I10 Essential (primary) hypertension; E78.00 Pure hypercholesterolemia, unspecified; K21.9 Gastro-esophageal reflux disease without esophagitis; M19.90 Unspecified osteoarthritis, unspecified site; E11.9 Type 2 diabetes mellitus without complications; E66.9 Obesity, unspecified; Z68.43 Body mass index [BMI] 50.0-59.9, adult; Z86.711 Personal history of pulmonary embolism; Z86.718 Personal history of other venous thrombosis and embolism; Z79.01 Long term (current) use of anticoagulants; Z79.4 Long term (current) use of insulin; Z79.899 Other long term (current) drug therapy; Z85.72 Personal history of non-Hodgkin lymphomas; Z85.42 Personal history of malignant neoplasm of other parts of uterus; Z90.49 Acquired absence of other specified parts of digestive tract; Z90.710 Acquired absence of both cervix and uterus; Z98.890 Other specified postprocedural states; Z87.891 Personal history of nicotine dependence; Z88.0 Allergy status to penicillin; Z88.5 Allergy status to narcotic agent; Z88.8 Allergy status to other drugs, medicaments and biological substances; Z91.048 Other nonmedicinal substance allergy status
CPT/HCPCS: 99283; 99284

== ENCOUNTER 2017-12-01 09:08 | Inpatient (IN) | payer MEDICARE, BC ==
[~2017-12-01 09:08] MED LIST: cefOXitin 2 GM Vial ONE
[2017-12-01] MEDS ORDERED: Celecoxib 200 MG Cap PO ONE (09:45)
[2017-12-01] MEDS ORDERED: Gabapentin 300 MG Cap PO ONE (09:45)
[2017-12-01] MEDS ORDERED: Acetaminophen 500 MG Tab PO ONE (09:45)
[2017-12-01] MEDS ORDERED: Scopolamine 1.5 MG Transdermal Patch TOP SCH (09:45)
[2017-12-01] MEDS ORDERED: Albuterol/Ipratropium 3.0-0.5 MG/3 ML Neb Soln NEB ONE (10:30)
[2017-12-01] MEDS ORDERED: Dextrose 5%-Lactated Ringers 1,000 ML IV SCH ×2 (10:30→16:00)
[2017-12-01] MEDS ORDERED: fentaNYL 250 MCG/5 ML SDV ONE ×2 (10:38→12:32)
[2017-12-01] MEDS ORDERED: Succinylcholine/Normal Saline 200 MG/10 ML Syringe ONE ×2 (10:39→13:51)
[2017-12-01] MEDS ORDERED: Neostigmine Methylsulfate 1 MG/ML 5 ML Syringe ONE (10:39)
[2017-12-01] MEDS ORDERED: Ondansetron 4 MG/2 ML SDV ONE (10:39)
[2017-12-01] MEDS ORDERED: Propofol 200 MG/20 ML SDV ONE (10:39)
[2017-12-01] MEDS ORDERED: Lactated Ringers 1,000 ML ONE (10:39)
[2017-12-01] MEDS ORDERED: Rocuronium 50 MG/5 ML Vial ONE (10:39)
[2017-12-01] MEDS ORDERED: Dexamethasone 4 MG/ML SDV ONE (10:39)
[2017-12-01] MEDS ORDERED: Lidocaine 2% 100 MG/5 ML Syringe IVPUSH ONE (11:00)
[2017-12-01] MEDS ORDERED: Lidocaine 0.4%/D5W 2 GM/500 ML BAG IV SCH (11:00)
[2017-12-01] MEDS ORDERED: Ketamine 500 MG/5 ML MDV IV SCH (11:00)
[2017-12-01] MEDS ORDERED: Ropivacaine 60 ML, Dexamethasone 8 MG, EPINEPHrine 0.4 MG, Sodium Chloride 0.9% 17.6 ML NERVRT SCH ×4 (11:00)
[2017-12-01] MEDS: cefOXitin 2 GM in Premix Bag 1 BAG IV ONE ×2 (12:00→19:37)
[2017-12-01] MEDS ORDERED: Lidocaine 1% 2 ML ONE (12:12)
[2017-12-01] MEDS ORDERED: Naloxone 0.4 MG/ML SDV ONE (14:32)
[2017-12-01] MEDS ORDERED: hydrOXYzine HCl 100 MG/2 ML SDV IM ONE (14:44)
[2017-12-01] MEDS: Insulin Aspart 100 Units/ML 3 ML Pen SUBCUT PRN ×2 (16:47→22:07)
[2017-12-01] MEDS: Acetaminophen Soln 650 MG/20.3 ML UD Cup PO SCH ×2 (16:49→23:46)
[2017-12-01] MEDS ORDERED: Pantoprazole 40 MG Vial IVPUSH SCH (17:00)
[2017-12-01] MEDS ORDERED: Labetalol 20 MG/4 ML Syringe IVPUSH PRN (17:00)
[2017-12-01] MEDS ORDERED: Metoclopramide 10 MG/2 ML SDV IVPUSH PRN (17:00)
[2017-12-01] MEDS ORDERED: diphenhydrAMINE 50 MG/ML SDV IVPUSH PRN (17:00)
[2017-12-01] MEDS ORDERED: Ondansetron 4 MG/2 ML SDV IVPUSH PRN (17:00)
[2017-12-01] MEDS ORDERED: 50% Dextrose in Water 50 ML Syringe IVPUSH PRN (17:00)
[2017-12-01] MEDS ORDERED: Glucagon,Human Recombinant 1 MG Vial IM PRN (17:00)
[2017-12-01] MEDS ORDERED: hydrOXYzine HCl 100 MG/2 ML SDV IM PRN (17:00)
[2017-12-01] MEDS ORDERED: MVI, Adult with Vitamin K 10 ML, Thiamine 200 MG, Chromium/Copper/Mang/Selen/Zn 1 ML in... IV SCH ×4 (17:00)
[2017-12-01] MEDS ORDERED: Albuterol/Ipratropium 3.0-0.5 MG/3 ML Neb Soln INH PRN (17:00)
[2017-12-01] MEDS: cefOXitin 2 GM in Sodium Chloride 0.9% 50 ML IV SCH ×2 (17:40→23:46)
[2017-12-01] MEDS: Gabapentin 250 MG/5 ML Solution ML 470 ML Bottle PO SCH (21:06)
[2017-12-01] MEDS: Enoxaparin 60 MG/0.6 ML Syringe SUBCUT SCH (21:06)
[2017-12-01] MEDS: Albuterol/Ipratropium 3.0-0.5 MG/3 ML Neb Soln INH SCH (21:14)
[2017-12-02] MEDS ORDERED: Iohexol 647 MG/ML 50 ML SDV PO SCH (00:30)
[2017-12-02] MEDS: Insulin Aspart 100 Units/ML 3 ML Pen SUBCUT PRN ×4 (04:06→22:36)
[2017-12-02] MEDS: Acetaminophen Soln 650 MG/20.3 ML UD Cup PO SCH ×4 (05:39→22:36)
[2017-12-02] MEDS: cefOXitin 2 GM in Sodium Chloride 0.9% 50 ML IV SCH (05:41)
[2017-12-02] MEDS: Albuterol/Ipratropium 3.0-0.5 MG/3 ML Neb Soln INH SCH ×4 (07:05→20:19)
[2017-12-02] MEDS: Gabapentin 250 MG/5 ML Solution ML 470 ML Bottle PO SCH ×3 (08:31→20:19)
[2017-12-02] MEDS: Celecoxib 200 MG Cap PO SCH (08:32)
[2017-12-02] MEDS: SCOPOLAMINE PATCH CHECK TOP SCH (08:34)
[2017-12-02] MEDS: Lisinopril 10 MG Tab PO SCH (08:35)
[2017-12-02] MEDS: Enoxaparin 60 MG/0.6 ML Syringe SUBCUT SCH ×2 (08:36→20:19)
[2017-12-02] MEDS ORDERED: Warfarin 5 MG Tab PO ONE (09:00)
--- NOTE | 2017-12-02 09:05 | CR ---
UGI wo KUB HISTORY: Evaluate Raquel-en-Y COMPARISON: CT scan 04/25/2017. FINDINGS: Contrast is seen in the small gastric remnant. Surgical drain present in this region. No ex travasation of contrast. No obstruction. No evidence for complication.
[2017-12-02] MEDS: Magnesium Oxide 400 MG Tab PO SCH (15:17)
--- NOTE | 2017-12-02 16:51 | PN ---
DATE OF SERVICE: 12/02/2017 The patient has been afebrile with stable vital signs. Blood sugars are somewhat high, but I think we will, rather than starting a long-acting insulin, start Januvia today. Her IV came out, and we will leave that out and see what happens with the blood sugars around the next 24 hours. Otherwise, she will move up to step-2 diet, maximize activity, and work with pulmonary toilet. Her upper GI x-ray looks good. We will restart her Coumadin today with the higher dose and continue the Lovenox as a bridging medication. Blas Beckett MD /[id number]
[2017-12-02] MEDS ORDERED: Ondansetron 4 MG Tab.DIS PO PRN (17:05)
[2017-12-03] MEDS: Acetaminophen Soln 650 MG/20.3 ML UD Cup PO SCH ×4 (04:27→22:15)
[2017-12-03] MEDS: Insulin Aspart 100 Units/ML 3 ML Pen SUBCUT PRN ×4 (04:27→21:11)
[2017-12-03] MEDS: Albuterol/Ipratropium 3.0-0.5 MG/3 ML Neb Soln INH SCH ×4 (07:36→21:12)
[2017-12-03] MEDS: Celecoxib 200 MG Cap PO SCH (07:59)
[2017-12-03] MEDS: Enoxaparin 60 MG/0.6 ML Syringe SUBCUT SCH ×2 (07:59→21:09)
[2017-12-03] MEDS: SCOPOLAMINE PATCH CHECK TOP SCH (08:00)
[2017-12-03] MEDS: Magnesium Oxide 400 MG Tab PO SCH (08:00)
[2017-12-03] MEDS: Lisinopril 10 MG Tab PO SCH (08:01)
[2017-12-03] MEDS: Gabapentin 250 MG/5 ML Solution ML 470 ML Bottle PO SCH ×3 (08:03→21:15)
[2017-12-03] MEDS ORDERED: Cyanocobalamin (Vitamin B12) 1,000 MCG/ML SDV IM ONE (09:00)
--- NOTE | 2017-12-03 11:52 | PN ---
DATE OF SERVICE: 12/03/2017 SUBJECTIVE: Susan is postop day #2. She has been working with respiratory therapy on getting her CPAP to work. Vital signs otherwise have been stable. Oral intake 1850, output is 1550. RUTH drain put out 120 mL. REVIEW OF SYSTEMS: Remainder of review of systems negative for any pertinent positives and negatives with the exception of her O2 does drop into the high 80s. OBJECTIVE: GENERAL: Radha Fleming is a pleasant 67-year-old female. VITAL SIGNS: TPR is 98.3, 90, 18. Blood pressure is 145/78. HEENT: Negative. NECK: Supple. HEART: Regular rate and rhythm. LUNGS: Clear. ABDOMEN: Dressings dry and intact. RUTH drain intact. Abdominal binder has been on. EXTREMITIES: Without peripheral edema. ASSESSMENT: Laparoscopic Raquel-en-Y gastric bypass surgery, liver biopsy, small bowel resection, repair of diaphragmatic hernia, excision of nodule on appendix epiploica of transverse colon for morbid obesity, hepatomegaly, nodule of small bowel mesentery, diaphragmatic hernia, and nodule on surface of appendix epiploica of transverse colon. Date of surgery, 12/01/2017. Surgeon; Blas Beckett MD. PLAN: Set up home health care. Plan to discharge in a.m. and work with incentive spirometer frequently, respiratory therapy to continue working with PT and INR. Today was 13.8 and 1.28. We will reevaluate p.r.n. or in a.m. Shauna Villavicencio PA-C /[id number]
[2017-12-03] MEDS ORDERED: Warfarin 5 MG Tab PO ONE (13:00)
[2017-12-03] MEDS ORDERED: Insulin Isophane NPH, Human 100 Units/ML 10 ML Vial SUBCUT ONE (13:30)
--- NOTE | 2017-12-03 19:11 | OR ---
DATE OF PROCEDURE: 12/01/2017 PREOPERATIVE DIAGNOSIS: Morbid obesity. POSTOPERATIVE DIAGNOSES: 1. Morbid obesity. 2. Marked hepatomegaly. 3. Immobile small bowel mesentery requiring resection to allow adequate mobility of jejunojejunostomy. 4. Paraesophageal diaphragmatic hernia. 5. Nodule on surface of the appendix epiploica, transverse colon. OPERATIVE PROCEDURE: 1. Diagnostic laparoscopy with lysis of extensive adhesions and:. a. Raquel-en-Y gastric bypass with long limb gastroenterostomy (09171). b. Jose-Cut needle liver biopsy (07392). c. Small bowel resection (54614). d. Repair of paraesophageal diaphragmatic hernia (82182). e. Excision of a nodule on appendix epiploica involving transverse colon (18654). ANESTHESIA: General. RAC SPECIALIST: Shauna Villavicencio PA-C and JENNIFER Melendez3. INDICATIONS FOR PROCEDURE: This is a 67-year-old presenting with longstanding morbid obesity and increasingly significant comorbidities. After preoperative evaluation and discussion, she wished to proceed with a gastric bypass procedure. Potential risks of the procedure including bleeding, infection, leaks from various GI tract closures, problems with bowel obstruction over time as well as possibility of cardiopulmonary, septic, or hemorrhagic complications leading to were all discussed, and the patient wishes to proceed. DETAILS OF PROCEDURE: The patient was taken to the operating room. After general endotracheal anesthesia was induced, she was converted to a lithotomy position. An orogastric tube was placed and the abdomen prepped and draped. At 15 cm inferior, 5 cm left of xiphoid process, a transverse incision was made and the peritoneal cavity entered under direct vision with an Optiview trocar. The peritoneal cavity was inflated to 15 mmHg with CO2. Laparoscope was reinserted. No underlying trocar insertion site injuries were seen. The patient was noted to have quite extensive adhesions in the upper abdomen. Initially, a 12 mm trocar was placed in the left lateral subcostal area and one in the mid subcostal area. This allowed lysis of adhesions to the extent that the procedure could proceed from that point. Bilateral subcostal transversus abdominis plane blocks were placed using a standard solution with direct visualization of the needle-tip in the transversus abdominis plane. At this point, 3 additional trocars were placed in the upper mid abdomen and the general exploration was undertaken. The patient was noted to have a quite marked hepatomegaly with liver being grossly fatty infiltrated and roughly 2 to 3 times normal size. A Jose-Cut needle biopsy was obtained from left lobe of the liver. Minimal bleeding from the biopsy sites was controlled with electrocautery. At this point, the transverse colon was mobilized upward. The patient had a nodular lesion measuring around 1 cm on one of the appendix epiploica of the transverse colon with a history of having Hodgkin's disease. This was felt to be best biopsied and this was excised using Harmonic scalpel and delivered from the field. With the transverse colon being retracted superiorly, the ligament of Treitz was identified. Small bowel was traced out 200 cm distal to that point, was divided transversely with a DYLAN stapler. Small bowel was then traced out additional 200 cm where the paiz-pl-rehe enteroenterostomy was accomplished with internal firing of the Endo-DYLAN 60 mm stapler. The common opening was then closed transversely with the same stapler and angles anastomosed, and mesenteric defect approximated with some 0 Ethibond stitch along with 4 mL of fibrin sealant. Prior to formation of jejunojejunostomy, it was noted that the patient's small bowel mesentery was quite immobile due for fatty infiltration and to facilitate mobility, roughly 10 cm segment of the biliopancreatic limb after being initially divided was excised with additional firings of the DYLAN stapler. The small-bowel specimen was delivered from the field. This allowed a much nicer mobility of the jejunojejunostomy, allowing the Raquel limb to get up to the area of the gastroesophageal junction without tension. The liver was then retracted anteriorly. The patient was noted to have a moderate-sized paraesophageal diaphragmatic hernia. The peritoneum overlying this was incised and reflected downward. An anterior repair of the diaphragmatic hernia was then accomplished with some 0 Ethibond sutures reinforced with PTFE pledgets. The gastrointestinal catheter was inflated to 15 mL and pulled up snugly against the EG junction. Gastric wall over the apex balloon was then marked with electrocautery, and balloon catheter deflated and pulled up in to the esophagus. The lesser omental tissue adjacent to the gastric cardia was incised allowing dissection behind the stomach at that level. The pouch formation was then initiated with a transverse firing of the DYLAN stapler at the level of the cauterized kaylee in the gastric cardia and completed with additional firings of DYALN staplers up to and through the angle of His. Upon completion of the pouch, both staple lines were noted to be intact. The anvil of a 25 mm EEA stapler was attached to Ripley sump type tube; it was brought down through the mouth and taken out through a small opening in the gastric pouch allowing the anvil likewise to be pulled down to within the gastric pouch. The divided end of the Raquel limb was then opened and the main body of the EEA stapler passed several centimeters into the lumen of the small bowel, the anvil and the area, thus creating the gastrojejunostomy. Upon removal of the stapler, double donuts of mucosa were noted within it. Small bowel was closed off with a vascular staple line. Gastrojejunostomy was reinforced with some 0 Ethibond seromuscular stitch along with 4 mL of fibrin sealant. A leak test was accomplished with injection of 120 mL of air in the gastric pouch while submerged with cefoxitin-containing saline solution. No leaks were identified. Single [place] drains were then placed adjacent to the gastrojejunostomy, taken out through subcostal trocar sites, no further problems were noted. Trocars were removed and the peritoneum deflated. The incisions were closed with 4-0 Vicryl skin stitch. Dressing was applied. The patient was taken to the recovery room in satisfactory condition. There were no other complications. Blas Beckett MD /[id number]
[2017-12-03] MEDS: Insulin Isophane NPH, Human 100 Units/ML 10 ML Vial SUBCUT SCH (21:09)
[2017-12-04] MEDS: Acetaminophen Soln 650 MG/20.3 ML UD Cup PO SCH ×3 (04:54→17:46)
[2017-12-04] MEDS: Albuterol/Ipratropium 3.0-0.5 MG/3 ML Neb Soln INH SCH ×4 (07:22→20:52)
[2017-12-04] MEDS: Insulin Isophane NPH, Human 100 Units/ML 10 ML Vial SUBCUT SCH ×2 (07:54→22:48)
[2017-12-04] MEDS: Celecoxib 200 MG Cap PO SCH (07:55)
[2017-12-04] MEDS ORDERED: Magnesium Hydroxide 400 MG/5 ML Susp 30 ML Cup PO ONE (09:00)
--- NOTE | 2017-12-04 09:06 | PN ---
DATE OF SERVICE: 12/04/2017 SUBJECTIVE: INR today was 1.84. Blood sugars for the past 24 hours were 212 and 179. She has been up ambulating, tolerating step 2 gastric bypass diet, oral intake was 2059, urine output was 2049, RUTH drain put out 40 mL of a light pink serosanguineous drainage. REVIEW OF SYSTEMS: Remainder of review of systems negative for any pertinent positives and negatives. OBJECTIVE: GENERAL: Susan Fleming is a pleasant 67-year-old female. She is sitting up in the chair. She is alert and oriented. VITAL SIGNS: TPR 97.6, 90, 20. Blood pressure 136/64. HEENT: Negative. NECK: Supple. HEART: Regular rate and rhythm. LUNGS: Clear. ABDOMEN: Dressings dry and intact. Abdominal binder is on. RUTH drain intact. EXTREMITIES: Without peripheral edema. ASSESSMENT: Diagnostic laparoscopy with lysis of extensive adhesions. A. Raquel-en-Y gastric bypass surgery, long limb gastroenterology, enterostomy. B. Jose-Cut needle liver biopsy. C. Small bowel resection. D. Repair of paraesophageal diaphragmatic hernia. E. Excision of a nodule of appendix epiploica involving transverse colon for: 1. Morbid obesity. 2. Marked hepatomegaly. 3. Immobile small bowel mesentery requiring resection to allow adequate motility of the jejunojejunostomy. 4. Paraesophageal diaphragmatic hernia. 5. Nodule on surface of appendix epiploica of transverse colon. Date of procedure, 12/01/2017, Blas Beckett MD. PLAN: 1. Set up home health care. The patient was unsure if she wants home health care or not. Today, she decides that she does. Plan, discharge in a.m. 2. Discontinue Lovenox. 3. Coumadin 2.5 mg 1 time today. 4. Discontinue RUTH drain. 5. Milk of magnesia 30 mL. 6. Dulcolax 2 tabs 1 hour by mouth after milk of mag. 7. Good pulmonary toilet. 8. We will evaluate p.r.n. or in a.m. Shauna Villavicencio PA-C /[id number]
--- NOTE | 2017-12-04 09:18 | OR ---
DATE OF PROCEDURE: 12/01/2017 ADDENDUM: Physician surveyor's assistant, Shauna Villavicencio, played an essential role in assisting in this case, helping to position the patient, retract structures as needed, as well as suturing and cutting sutures when indicated. Her presence improved the patient safety and decreased operative time. Blas Beckett MD /[id number]
[2017-12-04] MEDS: Magnesium Oxide 400 MG Tab PO SCH (09:38)
[2017-12-04] MEDS: Lisinopril 10 MG Tab PO SCH (09:39)
[2017-12-04] MEDS: Gabapentin 250 MG/5 ML Solution ML 470 ML Bottle PO SCH ×3 (09:47→20:51)
[2017-12-04] MEDS ORDERED: Bisacodyl 5 MG Tab PO ONE (10:00)
[2017-12-04] MEDS: Insulin Aspart 100 Units/ML 3 ML Pen SUBCUT PRN ×3 (10:14→22:47)
[2017-12-04] MEDS: Enoxaparin 60 MG/0.6 ML Syringe SUBCUT SCH (10:43)
[2017-12-04] MEDS ORDERED: Warfarin 2.5 MG Tab PO ONE (13:00)
[2017-12-04] MEDS: Acetaminophen 160 MG Tab,Disintegrating PO SCH (22:43)
[2017-12-05] MEDS: Acetaminophen 160 MG Tab,Disintegrating PO SCH (04:14)
[2017-12-05 07:32] VITALS: BP 103/65
[2017-12-05] MEDS: Albuterol/Ipratropium 3.0-0.5 MG/3 ML Neb Soln INH SCH (07:36)
[2017-12-05] MEDS: Lisinopril 10 MG Tab PO SCH (08:37)
[2017-12-05] MEDS: Celecoxib 200 MG Cap PO SCH (08:37)
[2017-12-05] MEDS: Magnesium Oxide 400 MG Tab PO SCH (08:38)
[2017-12-05] MEDS: Insulin Isophane NPH, Human 100 Units/ML 10 ML Vial SUBCUT SCH (08:40)
[2017-12-05] MEDS ORDERED: Warfarin 2.5 MG Tab PO ONE (11:00)
--- NOTE | 2017-12-06 03:01 | DISCH ---
ADMISSION DIAGNOSES: Morbid obesity, BMI 58.5, diabetes type 2, history of lymphoma, cancer of uterus, and endometrial cancer, chronic anticoagulation therapy, history of DVT, pulmonary embolism, and sleep apnea with use of CPAP. DISCHARGE DIAGNOSES: Diagnostic laparoscopy with lysis of extensive adhesions, Raquel-en-Y gastric bypass surgery with long limb gastroenterostomy, Jose-Cut needle liver biopsy, small bowel resection, repair of paraesophageal diaphragmatic hernia, excision of nodule of appendix epiploica involving transverse colon, for morbid obesity, marked hepatomegaly, immobile small bowel mesenteric requiring resection to allow adequate mobility of jejunojejunostomy, paraesophageal diaphragmatic hernia, and nodule surface of appendix epiploica transverse colon. Date of surgery is 12/01/2017, Blas Beckett MD. HISTORY: Susan is a 67-year-old female with longstanding history of morbid obesity and increasing comorbidities. After preoperative evaluation and discussion of possible risks and possible complications, she wished to proceed with surgical procedure. HOSPITAL COURSE: Susan had her surgery on 12/01/2017. She had no operative complications. On postop day #1, she was started on a step-2 gastric bypass diet without cereal. Her blood sugars were monitored and she was on a CPAP machine. Oxygen stayed around the low 90s. On postop day #2, her blood sugars continued to be monitored. Insulin was adjusted. Her PT and INR were also watched closely and monitored. On postop day #3, Home Healthcare was setup. Her Lovenox was discontinued, her RUTH drain was discontinued, and her bowels were stimulated. On postop day #4, she was able to be discharged to home without any complications. INR was 1.84. Blood sugars 203, 182. Oral intake for the past 24 hours was 1120. PHYSICAL EXAMINATION: HEENT: Negative. NECK: Supple. HEART: Regular rate and rhythm. LUNGS: Clear. ABDOMEN: Incisions look good. Sutures in place. Abdominal binder is on. EXTREMITIES: Without peripheral edema. DISPOSITION: Discharged to home with Home Healthcare agency. CONDITION: Stable and improving. FOLLOWUP APPOINTMENT: Followup appointments with Shauna Villavicencio PA-C, on 12/12/2017 at 10:15 a.m. MEDICATIONS: Home prescriptions: 1. Celebrex 200 mg p.o. daily, #14. 2. Insulin isophane NPH human Novolin N 10 units subcu q.12 h. 3 vials were given with 1 refill. 3. Magnesium oxide 400 mg p.o. daily #100. 4. Zofran 4 mg q.4 h. p.r.n. nausea. 5. She is to take Coumadin 2.5 mg p.o. daily. 6. Tylenol 650 mg every 6 hours p.r.n. pain. 7. Albuterol inhaler 2 puffs every 4 hours p.r.n. cough or wheezing. 8. Pulmicort nebulized inhaler twice daily. 9. Colace 100 mg b.i.d. 10.Lisinopril 10 mg oral daily. 11.Protonix 40 mg granules daily. 12.She is to hold her vitamins and supplements until first postop appointment. 13.Discontinue Lovenox. 14.Discontinue Zocor until first postop appointment. 15.Discontinue 5 mg of Coumadin. DIET AFTER DISCHARGE: Drink 8 to 10 glasses of water a day. Step-2 gastric bypass diet without cereal. ACTIVITY: As tolerated. No lifting greater than 10 pounds for [address] not drive for 1 week. Shower/bathing, may shower. DISCHARGE INSTRUCTIONS: Notify provider if any fever, increased pain, nausea, or vomiting. Wound incision care, keep site clean and dry. Wear abdominal binder for 2 weeks and as tolerated. SPECIAL INSTRUCTIONS: 1. Use incentive spirometer 10 times every hour while awake for 2 weeks. 2. Check blood sugars 4 times a day and record results. 3. Call clinic on Friday12/08/2017 with results of blood sugars at [phone].
== END 2017-12-05 09:30 | disposition home or self-care (01) | DRG 621 ==
LOC: UNDOADMIN 09:08 → JP.2SS 09:08 → JP.SDSSCHI 09:08 → JP.SDS 09:09 → EDSTATUS 10:30 → JP.2SS 14:40
PROVIDERS: ADMIT Surgery; ATTEND Surgery
PROC: 0D164ZA Bypass Stomach to Jejunum, Percutaneous Endoscopic Approach (ICD-10-PCS; principal; 2017-12-01)
PROC: 0DBL4ZZ Excision of Transverse Colon, Percutaneous Endoscopic Approach (ICD-10-PCS; 2017-12-01)
PROC: 0FB24ZX Excision of Left Lobe Liver, Percutaneous Endoscopic Approach, Diagnostic (ICD-10-PCS; 2017-12-01)
PROC: 0BQT4ZZ Repair Diaphragm, Percutaneous Endoscopic Approach (ICD-10-PCS; 2017-12-01)
PROC: 3E0T3BZ Introduction of Anesthetic Agent into Peripheral Nerves and Plexi, Percutaneous Approach (ICD-10-PCS; 2017-12-01)
PROC: 0DB94ZZ Excision of Duodenum, Percutaneous Endoscopic Approach (ICD-10-PCS; 2017-12-01)
DX: E66.01 Morbid (severe) obesity due to excess calories (principal); Z68.43 Body mass index [BMI] 50.0-59.9, adult; R16.0 Hepatomegaly, not elsewhere classified; K59.8 Other specified functional intestinal disorders; K44.9 Diaphragmatic hernia without obstruction or gangrene; K63.89 Other specified diseases of intestine; K76.0 Fatty (change of) liver, not elsewhere classified; Z85.42 Personal history of malignant neoplasm of other parts of uterus; Z85.72 Personal history of non-Hodgkin lymphomas; Z87.891 Personal history of nicotine dependence; E11.9 Type 2 diabetes mellitus without complications; Z79.4 Long term (current) use of insulin; Z86.711 Personal history of pulmonary embolism; Z79.01 Long term (current) use of anticoagulants; G47.30 Sleep apnea, unspecified; Z99.89 Dependence on other enabling machines and devices
CPT/HCPCS: 36415; 74240; 74240-26; 80053; 82962; 83735; 83880; 84100; 85027; 85610; 86850; 86900; 86901; 88304; 88307; 88313; 93005; 94640; 94762; A9270-GY; C9113; J0171; J0694; J1100; J1650; J2001; J2310; J2405; J2704; J2795; J3010; J3410; J3411; J3420; J7030; J7040; J7042; J7050; J7120; J7620; Q9967

== ENCOUNTER 2017-12-22 16:21 | Observation (INO) | payer MEDICARE, BC ==
[2017-12-22] MEDS ORDERED: Acetaminophen 325 MG Tab PO PRN (16:58)
[2017-12-22] MEDS ORDERED: Acetaminophen 650 MG Supp RECTAL PRN (16:59)
[2017-12-22] MEDS ORDERED: Lactated Ringers 1,000 ML IV ONE (17:00)
[2017-12-22] MEDS ORDERED: Albuterol 8 GM Inhaler INH PRN (17:03)
[2017-12-22] MEDS ORDERED: Albuterol/Ipratropium 3.0-0.5 MG/3 ML Neb Soln INH PRN (17:04)
[2017-12-22] MEDS: Albuterol/Ipratropium 3.0-0.5 MG/3 ML Neb Soln INH SCH ×2 (17:27→23:05)
[2017-12-22] MEDS: Ondansetron 4 MG/2 ML SDV IV PRN (17:27)
[2017-12-22] MEDS ORDERED: Pantoprazole 40 MG Vial IV SCH (21:00)
[2017-12-22] MEDS: Hyoscyamine 0.125 MG Tab.SL SL SCH (22:06)
[2017-12-22] MEDS: Insulin Isophane NPH, Human 100 Units/ML 10 ML Vial SUBCUT SCH (22:14)
[2017-12-22] MEDS ORDERED: Dextrose 5%-Lactated Ringers 1,000 ML IV SCH (23:00)
[2017-12-23] MEDS: Hyoscyamine 0.125 MG Tab.SL SL SCH ×2 (04:57→10:25)
[2017-12-23] MEDS: Albuterol/Ipratropium 3.0-0.5 MG/3 ML Neb Soln INH SCH ×2 (05:52→13:24)
[2017-12-23] MEDS ORDERED: Cyanocobalamin (Vitamin B12) 1,000 MCG/ML SDV IM ONE (06:30)
[2017-12-23] MEDS ORDERED: Propofol 200 MG/20 ML SDV ONE (07:00)
[2017-12-23] MEDS ORDERED: fentaNYL 100 MCG/2 ML SDV ONE (07:01)
[2017-12-23] MEDS ORDERED: Midazolam 1 MG/ML 2 ML SDV ONE (07:01)
[2017-12-23] MEDS ORDERED: Glycopyrrolate 0.2 MG/ML 2 ML SYRINGE IVPUSH ONE (07:15)
[2017-12-23] MEDS ORDERED: MVI, Adult with Vitamin K 10 ML, Chromium/Copper/Mang/Selen/Zn 1 ML, Thiamine 200 MG in... IV ONE ×4 (08:15)
[2017-12-23] MEDS ORDERED: Lisinopril 10 MG Tab (PTOM) PO SCH (09:00)
[2017-12-23] MEDS: Ondansetron 4 MG/2 ML SDV IV PRN (09:40)
[2017-12-23] MEDS: Insulin Isophane NPH, Human 100 Units/ML 10 ML Vial SUBCUT SCH (09:49)
[2017-12-23 11:26] VITALS: BP 133/56
[2017-12-23] MEDS ORDERED: Warfarin 2.5 MG Tab PO ONE (12:30)
--- NOTE | 2017-12-29 11:18 | OR ---
DATE OF PROCEDURE: 12/23/2017 PREOPERATIVE DIAGNOSIS: Strictured gastrojejunostomy. POSTOPERATIVE DIAGNOSIS: Strictured gastrojejunostomy. OPERATIVE PROCEDURE: Upper GI endoscopy with dilation of gastrojejunostomy. ANESTHESIA: IV sedation. INDICATION FOR PROCEDURE: The patient is status post recent Raquel-en-Y gastric bypass, presenting with symptoms of stricturing at her gastrojejunostomy. Plan is to proceed with upper GI endoscopy with dilation as indicated. Potential risks including bleeding and perforation were discussed, and the patient wishes to proceed. DETAILS OF PROCEDURE: The patient was taken to the operating room and placed in a left lateral decubitus position. IV sedation was administered, after which the upper GI endoscope was passed orally through the length of the esophagus and into the gastric pouch. The patient was noted to have no retained food or fluid. She did have a moderate stricture of the gastrojejunostomy. A Bard gastrointestinal balloon catheter was centered across the anastomosis, using fluoroscopic surveillance, inflated to 36-[place] size. This was held in position for 1 minute, after which the balloon catheter was deflated and withdrawn. The scope could easily then be passed through the anastomosis. No complications were noted. The scope was withdrawn and the procedure concluded. The patient was taken to the recovery room in a satisfactory condition. Blas Beckett MD /[id number]
== END 2017-12-23 14:37 | disposition home or self-care (01) ==
LOC: JP.MS 16:21
PROVIDERS: ADMIT Surgery; ATTEND Surgery
DX: K91.30 Postprocedural intestinal obstruction, unspecified as to partial versus complete (principal); K95.89 Other complications of other bariatric procedure; I10 Essential (primary) hypertension; K21.9 Gastro-esophageal reflux disease without esophagitis; F17.210 Nicotine dependence, cigarettes, uncomplicated; E11.69 Type 2 diabetes mellitus with other specified complication; E78.6 Lipoprotein deficiency; E78.1 Pure hyperglyceridemia; G47.30 Sleep apnea, unspecified; E66.01 Morbid (severe) obesity due to excess calories; Z68.43 Body mass index [BMI] 50.0-59.9, adult; Z85.72 Personal history of non-Hodgkin lymphomas; Z92.21 Personal history of antineoplastic chemotherapy; Z92.3 Personal history of irradiation; Z86.711 Personal history of pulmonary embolism; Z91.040 Latex allergy status; Z79.4 Long term (current) use of insulin; Z79.01 Long term (current) use of anticoagulants; Z79.899 Other long term (current) drug therapy; Z90.49 Acquired absence of other specified parts of digestive tract; Z98.84 Bariatric surgery status; Z98.890 Other specified postprocedural states
CPT/HCPCS: 36415; 43245; 80053; 82962; 83735; 84100; 85027; 85610; 94640; 96361; 96365; 96366; 96372; 96375; 96376; A9270; C9113; G0378; J2250; J2405; J2704; J3010; J3411; J3420; J7042; J7120; J7620

== ENCOUNTER 2020-02-22 14:56 | Emergency (ER) | payer MEDICARE ==
[2020-02-22] MEDS ORDERED: Sodium Chloride 0.9% 10 ML Syringe FLUSH PRN (15:11)
[2020-02-22] MEDS ORDERED: HYDROmorphone 1 MG/ML Syringe IVPUSH ONE (15:32)
--- NOTE | 2020-02-22 15:42 | EDM.PDOC ---
ED HPI GENERAL MEDICAL PROBLEM - General Chief Complaint: Abdominal Pain Stated Complaint: PAIN ON RIGHT SIDE RNY 11/2017 Time Seen by Provider: 02/22/20 15:25 Source of Information: Reports: Patient, Old Records, RN History Limitations: Reports: No Limitations - History of Present Illness INITIAL COMMENTS - FREE TEXT/NARRATIVE: 69 yo female presents after sudden onset of RLQ abdominal pain about 90 min before arrival. Has had fleeting pain in this area in the past, but this doesn' t seem to be letting up. Has had no fever, vomiting, or change in bowels. Had a Raquel-N-Y about 2 yrs ago [address] with Dr. Beckett. Her appendix has already been removed. Onset: Today Onset Date: 02/22/20 Onset Time: 14:00 Duration: Minutes: (90+), Constant Location: Reports: Abdomen (RLQ) Quality: Reports: Pressure Severity: Severe Improves with: Reports: None Worsens with: Reports: Other (unknown cause, pain increased with pressure over the area. 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) (none) Right Lower Abdomen Pain Score (Numeric/FACES): 8 - Related Data Allergies Allergy/AdvReac Type Severity Reaction Status Date / Time adhesive tape Allergy Blisters Verified 02/22/20 15:13 bupropion HCl Allergy Other Verified 02/22/20 15:13 [From Wellbutrin] latex Allergy Rash Verified 02/22/20 15:13 Penicillins Allergy Rash Verified 02/22/20 15:13 ciprofloxacin [From Cipro] AdvReac Tachycardia Verified 02/22/20 15:13 codeine AdvReac Hallucinati Verified 02/22/20 15:13 ons cyclobenzaprine AdvReac Hallucinati Verified 02/22/20 15:13 ons metformin AdvReac Diarrhea Verified 02/22/20 15:13 Home Meds: Home Meds Acetaminophen [Tylenol] 650 mg PO Q6H PRN #0 tablet 02/28/17 [Rx] Albuterol [IJD: Albuterol] 2.5 mg INH Q4H PRN 12/01/17 [History] Aspirin [Halfprin] 81 mg PO DAILY 02/22/20 [History] Biotin 10,000 mcg PO DAILY 02/22/20 [History] Calcium Carbonate [Calcium] 500 mg PO DAILY 02/22/20 [History] Cyanocobalamin (Vitamin B-12) [Vitamin B-12] 1,000 mcg PO DAILY 02/22/20 [ History] Past Medical History HEENT History: Reports: Cataract, Impaired Vision Cardiovascular History: Reports: Blood Clots/VTE/DVT, High Cholesterol, Hypertension, SOB on Exertion Respiratory History: Reports: Bronchitis, Recurrent, PE, Pneumonia, Recurrent, Sleep Apnea, SOB Gastrointestinal History: Reports: Cholelithiasis, GERD Genitourinary History: Reports: None 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 RNY. Female Surgical History: Reports: Section, D&C, Hysterectomy Endocrine Surgical History: Reports: None Musculoskeletal Surgical History: Reports: None Oncologic Surgical History: Reports: None Dermatological Surgical History: Reports: None Social & Family History - Family History Cardiac: Reports: CAD - Tobacco Use Smoking Status *Q: Current Every Day Smoker Years of Tobacco use: 50 Packs/Tins Daily: 1 Used Tobacco, but Quit: No Second Hand Smoke Exposure: Yes - Caffeine Use Caffeine Use: Reports: Coffee, Tea - Recreational Drug Use Recreational Drug Use: No ED ROS GENERAL - Review of Systems Review Of Systems: See Below Constitutional: Reports: No Symptoms HEENT: Reports: No Symptoms Respiratory: Reports: No Symptoms Cardiovascular: Reports: No Symptoms Endocrine: Reports: No Symptoms GI/Abdominal: Reports: Abdominal Pain. Denies: Black Stool, Bloody Stool, Constipation, Diarrhea, Distension, Flatus, Hematemesis, Hematochezia, Melena, Nausea, Vomiting : Reports: No Symptoms Musculoskeletal: Reports: No Symptoms Skin: Reports: No Symptoms Neurological: Reports: No Symptoms Psychiatric: Reports: No Symptoms ED EXAM, GI/ABD - Physical Exam Exam: See Below Exam Limited By: No Limitations General Appearance: Alert, WD/WN, No Apparent Distress Eyes: Bilateral: Normal Appearance Ears: Normal External Exam, Normal Canal, Hearing Grossly Normal, Normal TMs Nose: Normal Inspection, No Blood Throat/Mouth: Normal Inspection, Normal Lips, Normal Oropharynx, Normal Voice, No Airway Compromise Head: Atraumatic, Normocephalic Neck: Normal Inspection Respiratory/Chest: No Respiratory Distress, Lungs Clear, Normal Breath Sounds, No Accessory Muscle Use Cardiovascular: Regular Rate, Rhythm, No Edema GI/Abdominal Exam: Soft, No Distention, Guarding, Tender (RLQ). No: Non-Tender , Distended, Rigid, Rebound Back Exam: Normal Inspection. No: CVA Tenderness (R), CVA Tenderness (L) Extremities: Normal Inspection, Normal Range of Motion, Non-Tender, No Pedal Edema. No: Pedal Edema Neurological: Alert, Oriented, CN II-XII Intact, Normal Cognition, No Motor/ Sensory Deficits Psychiatric: Normal Affect, Normal Mood Skin Exam: Warm, Dry, Intact, Normal Color, No Rash Course - Vital Signs Last Recorded V/S: Last Vital Signs Temp 35.8 C L 02/22/20 15:23 Pulse 75 02/22/20 15:49 Resp 18 02/22/20 15:24 BP 215/92 H 02/22/20 15:49 Pulse Ox 98 02/22/20 15:23 - Orders/Labs/Meds Orders: Active Orders 24 hr Category Date Time Status Iopamidol [Isovue-300 (61%)] Med 02/22/20 15:53 Active 100 ml IV . DIRECTED PRN NS + KCl 20mEq/L [Normal Saline with 20 mEq KCl] 1,000 Med 02/22/20 16:00 Active ml IV ASDIRECTED Sodium Chloride 0.9% [Saline Flush] Med 02/22/20 15:11 Active 10 ml FLUSH ASDIRECTED PRN Saline Lock Insert [OM.PC] Routine Oth 02/22/20 15:11 Ordered Medication Orders Potassium Chloride/Sodium Chloride (Normal Saline With 20 Meq Kcl) 1,000 mls @ 150 mls/hr IV ASDIRECTED DEANNA Last Admin: 02/22/20 16:46 Dose: 150 mls/hr Iopamidol (Isovue-300 (61%)) 100 ml IV . DIRECTED PRN PRN Reason: RADIOLOGY EXAM Stop: 02/23/20 15:54 Last Admin: 02/22/20 15:58 Dose: 100 ml Sodium Chloride (Saline Flush) 10 ml FLUSH ASDIRECTED PRN PRN Reason: Keep Vein Open Last Admin: 02/22/20 15:47 Dose: 10 ml Labs: Laboratory Tests 02/22/20 02/22/20 02/22/20 Range/Units 15:18 15:18 15:18 WBC 6.7 (4.5-11.0) K/uL RBC 5.06 (3.30-5.50) M/uL Hgb 15.1 H (12.0-15.0) g/dL Hct 44.9 (36.0-48.0) % MCV 89 (80-98) fL MCH 30 (27-31) pg MCHC 34 (32-36) % Plt Count 210 (150-400) K/uL PT 10.0 (9.5-12.0) sec INR 0.92 (0.80-1.20) Sodium 144 (140-148) mmol/L Potassium 3.2 L (3.6-5.2) mmol/L Chloride 105 (100-108) mmol/L Carbon Dioxide 29 (21-32) mmol/L Anion Gap 13.2 (5.0-14.0) mmol/L BUN 13 (7-18) mg/dL Creatinine 0.5 L (0.6-1.0) mg/dL Est Cr Clr Drug Dosing 80.13 mL/min Estimated GFR (MDRD) > 60 (>60) Glucose 95 (74-106) mg/dL Calcium 8.6 (8.5-10.1) mg/dL Total Bilirubin 0.5 (0.2-1.0) mg/dL AST 15 (15-37) U/L ALT 37 (12-78) U/L Alkaline Phosphatase 82 (46-116) U/L Total Protein 6.9 (6.4-8.2) g/dL Albumin 3.7 (3.4-5.0) g/dL Globulin 3.2 (2.3-3.5) g/dL Albumin/Globulin Ratio 1.2 (1.2-2.2) Lipase 119 (73-393) U/L Urine Color (YELLOW) Urine Appearance (CLEAR) Urine pH (5.0-8.0) Ur Specific Walden (1.008-1.030) Urine Protein (NEGATIVE) mg/dL Urine Glucose (UA) (NEGATIVE) mg/dL Urine Ketones (NEGATIVE) mg/dL Urine Occult Blood (NEGATIVE) Urine Nitrite (NEGATIVE) Urine Bilirubin (NEGATIVE) Urine Urobilinogen (0.2-1.0) EU/dL Ur Leukocyte Esterase (NEGATIVE) Urine RBC (0-5) Urine WBC (0-5) Ur Epithelial Cells Amorphous Sediment Urine Bacteria Urine Mucus 02/22/20 Range/Units 15:30 WBC (4.5-11.0) K/uL RBC (3.30-5.50) M/uL Hgb (12.0-15.0) g/dL Hct (36.0-48.0) % MCV (80-98) fL MCH (27-31) pg MCHC (32-36) % Plt Count (150-400) K/uL PT (9.5-12.0) sec INR (0.80-1.20) Sodium (140-148) mmol/L Potassium (3.6-5.2) mmol/L Chloride (100-108) mmol/L Carbon Dioxide (21-32) mmol/L Anion Gap (5.0-14.0) mmol/L BUN (7-18) mg/dL Creatinine (0.6-1.0) mg/dL Est Cr Clr Drug Dosing mL/min Estimated GFR (MDRD) (>60) Glucose (74-106) mg/dL Calcium (8.5-10.1) mg/dL Total Bilirubin (0.2-1.0) mg/dL AST (15-37) U/L ALT (12-78) U/L Alkaline Phosphatase (46-116) U/L Total Protein (6.4-8.2) g/dL Albumin (3.4-5.0) g/dL Globulin (2.3-3.5) g/dL Albumin/Globulin Ratio (1.2-2.2) Lipase (73-393) U/L Urine Color Yellow (YELLOW) Urine Appearance Clear (CLEAR) Urine pH 7.0 (5.0-8.0) Ur Specific Walden 1.025 (1.008-1.030) Urine Protein Negative (NEGATIVE) mg/dL Urine Glucose (UA) Negative (NEGATIVE) mg/dL Urine Ketones Negative (NEGATIVE) mg/dL Urine Occult Blood Trace-intact H (NEGATIVE) Urine Nitrite Negative (NEGATIVE) Urine Bilirubin Negative (NEGATIVE) Urine Urobilinogen 0.2 (0.2-1.0) EU/dL Ur Leukocyte Esterase Negative (NEGATIVE) Urine RBC 0-5 (0-5) Urine WBC 0-5 (0-5) Ur Epithelial Cells Rare Amorphous Sediment Not seen Urine Bacteria Many Urine Mucus Not seen Meds: Medications Generic Name Dose Route Start Last Admin Trade Name Kelle PRN Reason Stop Dose Admin Potassium Chloride/Sodium Chloride 1,000 mls @ 150 mls/hr 02/22/20 16:00 16:46 Normal Saline With 20 Meq Kcl IV 150 mls/hr ASDIRECTED DEANNA Administration Iopamidol 100 ml 02/22/20 15:53 02/22/20 15:58 Isovue-300 (61%) IV 02/23/20 15:54 100 ml . DIRECTED PRN Administration RADIOLOGY EXAM Sodium Chloride 10 ml 02/22/20 15:11 02/22/20 15:47 Saline Flush FLUSH 10 ml ASDIRECTED PRN Administration Keep Vein Open Discontinued Medications Generic Name Dose Route Start Last Admin Trade Name Freq PRN Reason Stop Dose Admin Hydromorphone HCl 1 mg 02/22/20 15:32 02/22/20 15:46 Dilaudid IVPUSH 02/22/20 15:33 1 mg ONETIME ONE Administration Sodium Chloride 79 mls @ 3.5 mls/sec 02/22/20 16:00 02/22/20 15:58 Normal Saline IV 02/22/20 16:01 3.5 mls/sec ASDIRECTED DEANNA Administration Simethicone 160 mg 02/22/20 16:41 02/22/20 16:46 Simethicone PO 02/22/20 16:42 160 mg ONETIME ONE Administration Sodium Chloride 10 ml 02/22/20 16:00 02/22/20 15:58 Saline Flush FLUSH 02/22/20 16:01 10 ml ONETIME DEANNA Administration - Radiology Interpretation Free Text/Narrative:: CT abd/pelvis with IV contrast-IMPRESSION: No acute or specific finding to explain right lower quadrant abdomen pain. Specifically the appendix and GI tract are unremarkable. Dictated by Sergio Thomas MD @ 02/22/2020 4:33:[address] Results Date: 02/22/20 CT Results Time: 16:35 - Re-Assessments/Exams Free Text/Narrative Re-Assessment/Exam: 02/22/20 17:13 Feeling considerably better after our interventions. Departure - Departure Time of Disposition: 17:20 Disposition: Home, Self-Care 01 Condition: Fair Clinical Impression: Abdominal gas pain, Hypokalemia - Discharge Information *PRESCRIPTION DRUG MONITORING PROGRAM REVIEWED*: No *COPY OF PRESCRIPTION DRUG MONITORING REPORT IN PATIENT VALERIA: No Instructions: Hypokalemia, Abdominal Pain, Adult, [id number] Referrals: Jim Rai MD [Primary Care Provider] - Forms: ED Department Discharge Additional Instructions: Use acetaminophen and simethicone as needed for pain relief. Eat foods rich in potassium to get your levels up and keep them up. Recheck with your provider within the week, call for an appt. Return if worse. Sepsis Event Note - Evaluation Sepsis Screening Result: No Definite Risk - Focused Exam Vital Signs: Vital Signs Temp Pulse Resp BP Pulse Ox 02/22/20 15:49 75 215/92 H 02/22/20 15:24 73 18 206/94 H 02/22/20 15:23 35.8 C L 76 18 223/89 H 98 02/22/20 15:14 35.8 C L 76 18 223/89 H 98 Date Exam was Performed: 02/22/20 Time Exam was Performed: 17:13 - My Orders Last 24 Hours: My Active Orders 02/22/20 15:11 Sodium Chloride 0.9% [Saline Flush] 10 ml FLUSH ASDIRECTED PRN Saline Lock Insert [OM.PC] Routine 02/22/20 15:53 Iopamidol [Isovue-300 (61%)] 100 ml IV . DIRECTED PRN 02/22/20 16:00 NS + KCl 20mEq/L [Normal Saline with 20 mEq KCl] 1,000 ml IV ASDIRECTED - Assessment/Plan Last 24 Hours: My Active Orders 02/22/20 15:11 Sodium Chloride 0.9% [Saline Flush] 10 ml FLUSH ASDIRECTED PRN Saline Lock Insert [OM.PC] Routine 02/22/20 15:53 Iopamidol [Isovue-300 (61%)] 100 ml IV . DIRECTED PRN 02/22/20 16:00 NS + KCl 20mEq/L [Normal Saline with 20 mEq KCl] 1,000 ml IV ASDIRECTED
[2020-02-22 15:50] VITALS: BP 215/92; PULSE 75
[2020-02-22] MEDS ORDERED: Iopamidol 612 MG/ML 100 ML Bottle IV PRN (15:53)
[2020-02-22] MEDS ORDERED: Sodium Chloride 0.9% 10 ML Syringe FLUSH SCH (16:00)
[2020-02-22] MEDS ORDERED: NS + KCl 20mEq/L 1,000 ML IV SCH (16:00)
--- NOTE | 2020-02-22 16:35 | CRLCT ---
INDICATION: Right lower quadrant abdomen pain. History of Raquel-en-Y gastric bypass surgery. TECHNIQUE: CT abdomen and pelvis acquired with 100 cc Isovue-300 IV contrast. COMPARISON: April 25, 2017. FINDINGS: Lower chest: Unremarkable. Liver: Moderate intrahepatic biliary dilatation. Otherwise unremarkable liver. Gallbladder and bile ducts: Gallbladder is absent with mild secondary biliary dilatation. Pancreas: Unremarkable. No mass or inflammation. Spleen: Unremarkable. Normal in size. No masses. Adrenal glands: Unremarkable. No nodules. Kidneys: Unremarkable. No masses, stones, or hydronephrosis. GI tract: Raquel-en-Y gastric bypass changes are within normal limits. GI tract is otherwise within normal limits in caliber and appearance. No sign of mass or acute inflammation. Normal appendix. Vasculature: Unremarkable. Mesenteric arteries are patent. Lymph nodes: No lymphadenopathy. Omentum/Peritoneum/Abdominal Wall: There are postoperative changes from a ventral hernia repair. No sign of current hernia. No fluid collection or free air. Pelvis: Unremarkable. Bones: Unremarkable for age. IMPRESSION: No acute or specific finding to explain right lower quadrant abdomen pain. Specifically the appendix and GI tract are unremarkable. Dictated by Sergio Thomas MD @ 02/22/2020 4:33:17 PM Please note that all CT scans at this facility use dose modulation, iterative reconstruction, and/or weight-based dosing when appropriate to reduce radiation dose to as low as reasonably achievable. Dictated by: Sergio Thomas MD @ 02/22/2020 16:33:24 (Electronically Signed)
[2020-02-22] MEDS ORDERED: Simethicone 80 MG Tab.Chew PO ONE (16:41)
== END 2020-02-22 17:26 | disposition home or self-care (01) ==
LOC: JP.ED 14:56
DX: R14.3 Flatulence (principal); E87.6 Hypokalemia; I10 Essential (primary) hypertension; M19.90 Unspecified osteoarthritis, unspecified site; E11.9 Type 2 diabetes mellitus without complications; F17.210 Nicotine dependence, cigarettes, uncomplicated; E66.9 Obesity, unspecified; Z79.01 Long term (current) use of anticoagulants; Z91.040 Latex allergy status; Z88.0 Allergy status to penicillin; Z88.5 Allergy status to narcotic agent; Z88.8 Allergy status to other drugs, medicaments and biological substances; Z68.32 Body mass index [BMI] 32.0-32.9, adult
CPT/HCPCS: 36415; 74177; 80053; 81001; 83690; 85027; 85610; 96365; 96375; 99284; A9270; J1170; J3480; J7050; Q9967

== ENCOUNTER 2020-04-30 20:09 | Emergency (ER) | payer MEDICARE ==
[2020-04-30 20:24] VITALS: BP 187/82; PULSE 82
[2020-04-30] MEDS ORDERED: Bacitracin Oint 1 GM U/D Packet TOP ONE (20:49)
[2020-04-30] MEDS ORDERED: Diphtheria,Pertussis(Acell),Tetanus Vaccine 0.5 ML SDV IM ONE (21:17)
--- NOTE | 2020-04-30 21:22 | EDM.PDOC ---
ED HPI GENERAL MEDICAL PROBLEM - General Chief Complaint: Laceration Stated Complaint: LEFT CONRAD CUT Time Seen by Provider: 04/30/20 20:30 Source of Information: Reports: Patient History Limitations: Reports: No Limitations - History of Present Illness INITIAL COMMENTS - FREE TEXT/NARRATIVE: 69-year-old female with a complex laceration to her left lower conrad. She was helping move some furniture when a part of the table fell and struck her on the left lower leg. This occurred about 2 hours ago, she covered the wound initially but realized it was deep and irregular and likely needed repair. No other injury. Onset: Sudden Duration: Hour(s): (2 hours ago) Location: Reports: Lower Extremity, Left Associated Symptoms: Reports: No Other Symptoms Left Lower Leg Pain Score (Numeric/FACES): 4 - Related Data Allergies Allergy/AdvReac Type Severity Reaction Status Date / Time adhesive tape Allergy Blisters Verified 04/30/20 20:57 bupropion HCl Allergy Other Verified 04/30/20 20:57 [From Wellbutrin] latex Allergy Rash Verified 04/30/20 20:57 Penicillins Allergy Rash Verified 04/30/20 20:57 ciprofloxacin [From Cipro] AdvReac Tachycardia Verified 04/30/20 20:57 codeine AdvReac Hallucinati Verified 04/30/20 20:57 ons cyclobenzaprine AdvReac Hallucinati Verified 04/30/20 20:57 ons metformin AdvReac Diarrhea Verified 04/30/20 20:57 dermabond AdvReac Redness Uncoded 04/30/20 20:56 Home Meds: Home Meds Acetaminophen [Tylenol] 650 mg PO Q6H PRN #0 tablet 02/28/17 [Rx] Albuterol [IJD: Albuterol] 2.5 mg INH Q4H PRN 12/01/17 [History] Aspirin [Halfprin] 81 mg PO DAILY 02/22/20 [History] Biotin 10,000 mcg PO DAILY 02/22/20 [History] Calcium Carbonate [Calcium] 500 mg PO DAILY 02/22/20 [History] Cyanocobalamin (Vitamin B-12) [Vitamin B-12] 1,000 mcg PO DAILY 02/22/20 [History] Past Medical History HEENT History: Reports: Cataract, Impaired Vision Cardiovascular History: Reports: Blood Clots/VTE/DVT, High Cholesterol, Hypertension, SOB on Exertion Respiratory History: Reports: Bronchitis, Recurrent, PE, Pneumonia, Recurrent, Sleep Apnea, SOB Gastrointestinal History: Reports: Cholelithiasis, GERD Genitourinary History: Reports: None 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 RNY. Female Surgical History: Reports: Section, D&C, Hysterectomy Dermatological Surgical History: Reports: None Social & Family History - Family History Cardiac: Reports: CAD - Tobacco Use Smoking Status *Q: Current Every Day Smoker Years of Tobacco use: 50 Packs/Tins Daily: 1 Used Tobacco, but Quit: No Second Hand Smoke Exposure: Yes - Caffeine Use Caffeine Use: Reports: Coffee - Recreational Drug Use Recreational Drug Use: No ED ROS GENERAL - Review of Systems Review Of Systems: See Below Constitutional: Denies: Fever, Chills HEENT: Reports: No Symptoms Respiratory: Denies: Shortness of Breath Cardiovascular: Denies: Chest Pain GI/Abdominal: Denies: Nausea, Vomiting Skin: Reports: Other (Wound is described in HPI. She has a reaction to topical glue or adhesives so Steri-Strips are not tolerated) ED EXAM, SKIN/RASH Exam: See Below Exam Limited By: No Limitations General Appearance: Alert, No Apparent Distress Respiratory/Chest: No Respiratory Distress Extremities: Other (The left lower leg has a very complex curved irregular laceration into the subcutaneous tissue a total of 6.5 cm long. There is overlying irregular skin tears.) Course - Vital Signs Last Recorded V/S: Last Vital Signs Temp 97.1 F 04/30/20 21:11 Pulse 82 04/30/20 21:11 Resp 16 04/30/20 21:11 BP 187/82 H 04/30/20 21:11 Pulse Ox 92 L 04/30/20 21:11 - Orders/Labs/Meds Orders: Active Orders 24 hr Category Date Time Status Vaccines to be Administered [RC] PER UNIT ROUTINE Care 04/30/20 21:17 Active Meds: Medications Discontinued Medications Generic Name Dose Route Start Last Admin Trade Name Kelle PRN Reason Stop Dose Admin Bacitracin 1 dose 04/30/20 20:49 04/30/20 21:14 Bacitracin Oint 1 Gm TOP 04/30/20 20:50 1 dose ONETIME ONE Administration Diphtheria/Tetanus/Acell Pertussis 0.5 ml 04/30/20 21:17 04/30/20 21:22 Adacel IM 04/30/20 21:18 0.5 ml .ONCE ONE Administration Lidocaine HCl 5 ml 04/30/20 20:49 04/30/20 21:14 Xylocaine-Mpf 1% INJECT 04/30/20 20:50 5 ml ONETIME ONE Administration - Re-Assessments/Exams Free Text/Narrative Re-Assessment/Exam: 04/30/20 21:20 The wound was anesthetized with 1% lidocaine and then washed thoroughly with saline. A small amount of debridement of very thin epidermis was removed, and the remainder laid out anatomically. Seven 5-0 Ethilon sutures were used to close the laceration, and the overlying skin tears were pressed into place. Steri-Strips were avoided. Topical bacitracin and a wraparound mild pressure dressing was applied to the lower extremity and this can be removed on Friday in the clinic for reexamination. She was given a Tdap booster. Departure - Departure Time of Disposition: 21:59 Disposition: Home, Self-Care 01 Clinical Impression: Laceration of left lower leg Qualifiers: Encounter type: initial encounter Qualified Code(s): S81.812A - Laceration without foreign body, left lower leg, initial encounter - Discharge Information Instructions: Laceration Care, Adult, [id number] Referrals: Jim Rai MD [Primary Care Provider] - Forms: ED Department Discharge Care Plan Goals: Keep wound covered and clean while healing, I would recommend rechecking the wound in 2 to 3 days at the clinic for redressing and monitoring. Sepsis Event Note (ED) - Evaluation Sepsis Screening Result: No Definite Risk - Focused Exam Vital Signs: Vital Signs Temp Pulse Resp BP Pulse Ox 04/30/20 21:11 97.1 F 82 16 187/82 H 92 L 04/30/20 20:23 97.1 F 82 16 187/82 H 92 L - My Orders Last 24 Hours: My Active Orders 04/30/20 21:17 Vaccines to be Administered [RC] PER UNIT ROUTINE - Assessment/Plan Last 24 Hours: My Active Orders 04/30/20 21:17 Vaccines to be Administered [RC] PER UNIT ROUTINE
== END 2020-04-30 21:40 | disposition home or self-care (01) ==
LOC: JP.ED 20:09
DX: S81.812A Laceration without foreign body, left lower leg, initial encounter (principal); I10 Essential (primary) hypertension; E11.9 Type 2 diabetes mellitus without complications; M19.90 Unspecified osteoarthritis, unspecified site; E66.9 Obesity, unspecified; F17.210 Nicotine dependence, cigarettes, uncomplicated; Z68.31 Body mass index [BMI] 31.0-31.9, adult; Z23 Encounter for immunization; Z79.01 Long term (current) use of anticoagulants; Z79.82 Long term (current) use of aspirin; Z79.899 Other long term (current) drug therapy; Z88.8 Allergy status to other drugs, medicaments and biological substances; Z88.5 Allergy status to narcotic agent; Z88.0 Allergy status to penicillin; Z91.040 Latex allergy status; Z91.048 Other nonmedicinal substance allergy status; Z88.1 Allergy status to other antibiotic agents; W20.8XXA Other cause of strike by thrown, projected or falling object, initial encounter
CPT/HCPCS: 12002; 90471; 90715; 99282; J2001

== ENCOUNTER 2020-11-15 10:20 | Emergency (ER) | payer MEDICARE ==
--- NOTE | 2020-11-15 10:50 | EDM.PDOC ---
ED HPI GENERAL MEDICAL PROBLEM - General Chief Complaint: Abdominal Pain Stated Complaint: RNY PATIENT 2 YEARS OUT Time Seen by Provider: 11/15/20 10:36 Source of Information: Reports: Patient History Limitations: Reports: No Limitations - History of Present Illness INITIAL COMMENTS - FREE TEXT/NARRATIVE: Susan is a 70-year-old female presenting to the ED for evaluation of right lower quadrant and right groin pain that started an hour prior to arrival. Patient is concerned that she has a hernia causing her pain. 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 Beckett. The patient reports that she had acute onset of severe right lower quadrant pain about an hour and a half prior to arrival. She stated that the pain is been building gradually over the course of a couple of minutes reaching a maximum intensity of 10 out of 10. She said the pain was sharp and stabbing. It then became associated with nausea but no vomiting. Patient denies any fever or chills, loss of taste or smell, change in appetite, change in bowel habits including diarrhea or constipation, melena, or hematochezia. She denies any chest pain or shortness of breath. She does still smoke. She has a history for a cholecystectomy and appendectomy when she was 18 years old. She denies any flank pain, urinary urgency, frequency, burning with urination, or hematuria. She has not had kidney stones. She has had a previous umbilical hernia. Right Lower Abdomen Pain Score (Numeric/FACES): 3 - Related Data Allergies Allergy/AdvReac Type Severity Reaction Status Date / Time adhesive tape Allergy Blisters Verified 11/15/20 10:38 bupropion HCl Allergy Other Verified 11/15/20 10:38 [From Wellbutrin] latex Allergy Rash Verified 11/15/20 10:38 Penicillins Allergy Rash Verified 11/15/20 10:38 ciprofloxacin [From Cipro] AdvReac Tachycardia Verified 11/15/20 10:38 codeine AdvReac Hallucinati Verified 11/15/20 10:38 ons cyclobenzaprine AdvReac Hallucinati Verified 11/15/20 10:38 ons metformin AdvReac Diarrhea Verified 11/15/20 10:38 dermabond AdvReac Redness Uncoded 11/15/20 10:38 Home Meds: Home Meds Acetaminophen [Tylenol] 650 mg PO Q6H PRN #0 tablet 02/28/17 [Rx] Albuterol [IJD: Albuterol] 2.5 mg INH Q4H PRN 12/01/17 [History] Aspirin [Halfprin] 81 mg PO DAILY 02/22/20 [History] Biotin 10,000 mcg PO DAILY 02/22/20 [History] Calcium Carbonate [Calcium] 500 mg PO DAILY 02/22/20 [History] Cyanocobalamin (Vitamin B-12) [Vitamin B-12] 1,000 mcg PO DAILY 02/22/20 [History] Magnesium 250 mg PO DAILY 11/15/20 [History] Vitamin B Complex with C [Super B Complex With C] 1 tab PO DAILY 11/15/20 [History] amLODIPine [Norvasc] 5 mg PO DAILY 30 Days #30 tab 11/15/20 [Rx] Past Medical History HEENT History: Reports: Cataract, Impaired Vision Cardiovascular History: Reports: Blood Clots/VTE/DVT, High Cholesterol, Hypertension, SOB on Exertion Respiratory History: Reports: Bronchitis, Recurrent, PE, Pneumonia, Recurrent, Sleep Apnea, SOB Gastrointestinal History: Reports: Cholelithiasis, GERD Genitourinary History: Reports: None [employer] History: Reports: Dysfunctional Uterine Bleeding, Musculoskeletal History: Reports: Back Pain, Chronic, Osteoarthritis Endocrine/Metabolic History: Reports: Diabetes, Type II, IDDM, Obesity/BMI 30+ Hematologic History: Reports: Anticoagulation Therapy, Blood Transfusion(s) Other Hematologic History: Coumadin Oncologic (Cancer) History: Reports: Lymphoma, Uterine, Other (See Below) Other Oncologic History: removed lymphs in groin Dermatologic History: Reports: Cellulitis Other Dermatologic History: growth on inner elbow-left.- this was removed. 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 RNY. Female Surgical History: Reports: Section, D&C, Hysterectomy Dermatological Surgical History: Reports: None Social & Family History - Family History Cardiac: Reports: CAD - Caffeine Use Caffeine Use: Reports: Coffee ED ROS GENERAL - Review of Systems Review Of Systems: See Below Constitutional: Reports: No Symptoms HEENT: Reports: No Symptoms Respiratory: Reports: No Symptoms Cardiovascular: Reports: No Symptoms Endocrine: Reports: No Symptoms GI/Abdominal: Reports: Abdominal Pain (Right lower quadrant into the right groin), Nausea. Denies: Constipation, Diarrhea, Decreased Appetite, Distension, Hematemesis, Hematochezia, Vomiting : Reports: No Symptoms. Denies: Dysuria, Flank Pain, Frequency, Hematuria, Incontinence, Urgency, Urinary Retention Musculoskeletal: Reports: No Symptoms Skin: Reports: No Symptoms Neurological: Reports: No Symptoms Psychiatric: Reports: No Symptoms Hematologic/Lymphatic: Reports: No Symptoms Immunologic: Reports: No Symptoms ED EXAM, GI/ABD - Physical Exam Exam: See Below Exam Limited By: No Limitations General Appearance: Alert, Mild Distress Eyes: Bilateral: EOMI Throat/Mouth: Normal Inspection, Normal Lips, Normal Teeth, Normal Gums, Normal Oropharynx, Normal Voice, No Airway Compromise Head: Atraumatic, Normocephalic Neck: Normal Inspection, Supple, Non-Tender, Full Range of Motion Respiratory/Chest: No Respiratory Distress, Lungs Clear, Normal Breath Sounds, No Accessory Muscle Use, Chest Non-Tender Cardiovascular: Normal Peripheral Pulses, Regular Rate, Rhythm, No Edema, No JVD, No Murmur GI/Abdominal Exam: Normal Bowel Sounds, Soft, No Distention, Tender (Tenderness to deep palpation in the right lower quadrant.), Other (Tympany to percussion throughout the distribution of the ascending colon, transverse colon, and descending colon excluding the pelvis and lower abdomen.). No: Guarding, Rigid, Rebound Back Exam: Normal Inspection, Full Range of Motion, NT Extremities: Normal Inspection, Normal Range of Motion, Non-Tender, No Pedal Edema Neurological: Alert, Oriented, Normal Cognition, No Motor/Sensory Deficits Psychiatric: Normal Affect, Normal Mood Skin Exam: Warm, Dry, Intact, Normal Color, No Rash Lymphatic: No Adenopathy Course - Vital Signs Last Recorded V/S: Last Vital Signs Temp 36.1 C 11/15/20 12:24 Pulse 67 11/15/20 12:24 Resp 16 11/15/20 10:42 BP 178/80 H 11/15/20 12:24 Pulse Ox 95 11/15/20 12:24 - Orders/Labs/Meds Orders: Active Orders 24 hr Category Date Time Status Sodium Chloride 0.9% [Saline Flush] Med 11/15/20 10:53 Active 10 ml FLUSH ASDIRECTED PRN Sodium Chloride 0.9% [Saline Flush] Med 11/15/20 11:41 Active 10 ml FLUSH ONETIME PRN Saline Lock Insert [OM.PC] Routine Oth 11/15/20 10:53 Ordered Medication Orders Sodium Chloride (Saline Flush) 10 ml FLUSH ASDIRECTED PRN PRN Reason: Keep Vein Open Last Admin: 11/15/20 11:10 Dose: 10 ml Documented by: ANNI Sodium Chloride (Saline Flush) 10 ml FLUSH ONETIME PRN PRN Reason: PER RADIOLOGY PROTOCOL Last Admin: 11/15/20 11:45 Dose: 10 ml Documented by: SUZETTE Labs: Laboratory Tests 11/15/20 11/15/20 11/15/20 Range/Units 11:09 11:09 11:14 WBC 7.0 (4.5-11.0) K/uL RBC 4.91 (3.30-5.50) M/uL Hgb 14.8 (12.0-15.0) g/dL Hct 44.8 (36.0-48.0) % MCV 91 (80-98) fL MCH 30 (27-31) pg MCHC 33 (32-36) % Plt Count 197 (150-400) K/uL Neut % (Auto) 78 H (36-66) % Lymph % (Auto) 16 L (24-44) % [place] % (Auto) 5 (2-6) % Eos % (Auto) 1 L (2-4) % Baso % (Auto) 0 (0-1) % Sodium 144 (140-148) mmol/L Potassium 3.5 L (3.6-5.2) mmol/L Chloride 104 (100-108) mmol/L Carbon Dioxide 29 (21-32) mmol/L Anion Gap 14.5 H (5.0-14.0) mmol/L BUN 11 (7-18) mg/dL Creatinine 0.5 L (0.6-1.0) mg/dL Est Cr Clr Drug Dosing 79.00 mL/min Estimated GFR (MDRD) > 60 (>60) Glucose 134 H (74-106) mg/dL Calcium 8.9 (8.5-10.1) mg/dL Total Bilirubin 0.6 (0.2-1.0) mg/dL AST 19 (15-37) U/L ALT 38 (12-78) U/L Alkaline Phosphatase 82 (46-116) U/L C-Reactive Protein 0.07 (0.0-0.3) mg/dL Total Protein 6.5 (6.4-8.2) g/dL Albumin 3.4 (3.4-5.0) g/dL Globulin 3.1 (2.3-3.5) g/dL Albumin/Globulin Ratio 1.1 L (1.2-2.2) Urine Color Yellow (YELLOW) Urine Appearance Clear (CLEAR) Urine pH 6.5 (5.0-8.0) Ur Specific [place] 1.020 (1.008-1.030) Urine Protein Negative (NEGATIVE) mg/dL Urine Glucose (UA) Negative (NEGATIVE) mg/dL Urine Ketones Negative (NEGATIVE) mg/dL Urine Occult Blood Negative (NEGATIVE) Urine Nitrite Negative (NEGATIVE) Urine Bilirubin Negative (NEGATIVE) Urine Urobilinogen 0.2 (0.2-1.0) EU/dL Ur Leukocyte Esterase Trace H (NEGATIVE) Urine RBC 0-5 (0-5) Urine WBC 5-10 H (0-5) Ur Epithelial Cells Few Amorphous Sediment Not seen Urine Bacteria Moderate Urine Mucus Not seen Meds: Medications Generic Name Dose Route Start Last Admin Trade Name Freq PRN Reason Stop Dose Admin Sodium Chloride 10 ml 11/15/20 10:53 11/15/20 11:10 Saline Flush FLUSH 10 ml ASDIRECTED PRN Administration Keep Vein Open Sodium Chloride 10 ml 11/15/20 11:41 11/15/20 11:45 Saline Flush FLUSH 10 ml ONETIME PRN Administration PER RADIOLOGY PROTOCOL Discontinued Medications Generic Name Dose Route Start Last Admin Trade Name Freq PRN Reason Stop Dose Admin Al Hydroxide/Mg Hydroxide 30 ml 11/15/20 12:22 11/15/20 12:30 Mag-Al Plus PO 11/15/20 12:23 30 ml ONETIME ONE Administration Amlodipine Besylate 5 mg 11/15/20 12:42 Norvasc PO 11/15/20 12:43 ONETIME ONE Sodium Chloride 73 mls @ 3 mls/sec 11/15/20 11:41 11/15/20 11:45 Normal Saline IV 11/15/20 11:42 3 mls/sec ONETIME ONE Administration Iopamidol 100 ml 11/15/20 11:41 11/15/20 11:45 Isovue-300 (61%) IV 100 ml . DIRECTED PRN Administration RADIOLOGY EXAM - Re-Assessments/Exams Free Text/Narrative Re-Assessment/Exam: 11/15/20 12:44 I reviewed the labs showing a normal CBC and comprehensive metab olic panel. Patient does have a mild UTI with positive leukocyte esterase and 5-10 WBCs, however, the patient is asymptomatic and likely it is not need to be treated at this time. The patient did remain relatively hypertensive throughout her ER visit presenting with a blood pressure of 212/88 and lowest recorded is 178/80. For this reason we will start her on amlodipine 5 mg daily. I would like her to follow-up with her primary care provider in 1 week for blood pressure recheck. She will likely need to have adjustment of the dosing if not addition of Benzapril if her blood pressure does not improve. A CT of the abdomen and pelvis with contrast failed to reveal any cause for her right lower quadrant pain, however, she does have a copious amount of colonic flatus and given the findings on her exam this is likely the nidus for her pain. Patient was given Maalox with simethicone to try to help break up the gas. At this time she is suitable for discharge, indications to return to the ED were discussed and all questions were answered. Departure - Departure Time of Disposition: 13:05 Disposition: Home, Self-Care 01 Condition: Good Clinical Impression: Right lower quadrant abdominal pain, Excessive flatus, Elevated blood pressure reading without diagnosis of hypertension - Discharge Information *PRESCRIPTION DRUG MONITORING PROGRAM REVIEWED*: Not Applicable *COPY OF PRESCRIPTION DRUG MONITORING REPORT IN PATIENT VALERIA: Not Applicable Prescriptions: amLODIPine [Norvasc] 5 mg PO DAILY 30 Days #30 tab Instructions: Preventing Hypertension, Abdominal Pain, Adult, [id number], Abdominal Bloating Referrals: Jim Rai MD [Primary Care Provider] - Forms: ED Department Discharge Care Plan Goals: I would like you to follow-up with your primary care provider within 1 week for recheck of your blood pressure. We are starting you on a medication to lower your blood pressure called amlodipine which helps dilate the arteries. While initiating this medication, you may have episodes when you change position that you may feel dizzy for a few moments. Please take your time when changing positions to help prevent this. The goal is to lower your blood pressure back to more reasonable levels to prevent acceleration of heart disease or stroke. Your work-up today showed what we discussed earlier in that you have excessive intestinal gas likely causing your pain. You may use Maalox or anything simethicone-based like Di-Gel, Barbara, or Gas-X to help reduce this in the future. Sepsis Event Note (ED) - Focused Exam Vital Signs: Vital Signs Temp Pulse Resp BP Pulse Ox 11/15/20 12:24 36.1 C 67 178/80 H 95 11/15/20 11:10 73 181/80 H 11/15/20 10:42 36.4 C 71 16 217/90 H 95 - Problem List & Annotations (1) Elevated blood pressure reading without diagnosis of hypertension SNOMED Code(s): 965759263 Code(s): R03.0 - ELEVATED BLOOD-PRESSURE READING, W/O DIAGNOSIS OF HTN Status: Acute Priority: Medium Current Visit: Yes (2) Excessive flatus SNOMED Code(s): 50713537 Code(s): R14.3 - FLATULENCE Status: Acute Priority: Medium Current Visit: Yes (3) Right lower quadrant abdominal pain SNOMED Code(s): 322412661 Code(s): R10.31 - RIGHT LOWER QUADRANT PAIN Status: Acute Priority: High Current Visit: Yes - Problem List Review Problem List Initiated/Reviewed/Updated: Yes - My Orders Last 24 Hours: My Active Orders 11/15/20 10:53 Sodium Chloride 0.9% [Saline Flush] 10 ml FLUSH ASDIRECTED PRN Saline Lock Insert [OM.PC] Routine 11/15/20 11:41 Sodium Chloride 0.9% [Saline Flush] 10 ml FLUSH ONETIME PRN - Assessment/Plan Last 24 Hours: My Active Orders 11/15/20 10:53 Sodium Chloride 0.9% [Saline Flush] 10 ml FLUSH ASDIRECTED PRN Saline Lock Insert [OM.PC] Routine 11/15/20 11:41 Sodium Chloride 0.9% [Saline Flush] 10 ml FLUSH ONETIME PRN
[2020-11-15] MEDS ORDERED: Sodium Chloride 0.9% 10 ML Syringe FLUSH PRN ×2 (10:53→11:41)
[2020-11-15] MEDS ORDERED: Iopamidol 612 MG/ML 100 ML Bottle IV PRN (11:41)
[2020-11-15] MEDS ORDERED: Aluminum Hydroxide/Magnesium Hydroxide/Simethicone Susp 30 ML Cup PO ONE (12:22)
[2020-11-15 12:24] VITALS: BP 178/80; PULSE 67
--- NOTE | 2020-11-15 12:27 | CT ---
Abdomen Pelvis w Cont CLINICAL HISTORY: Right lower quadrant pain COMPARISON: February 2020. TECHNIQUE: Axial tomographic images are obtained from the dome of the diaphragm to the pubic symphysis without IV contrast enhancement. No oral contrast was used. The dosage reduction and iterative reconstruction techniques employed. FINDINGS: The lung bases are clear. The liver is mildly enlarged. The gallbladder has been removed. Patient has had previous bariatric surgery. There is also been previous ventral hernia repair with mesh in the mid to lower abdomen. The spleen has a normal size and shape. The pancreas shows no mass or inflammatory change. The adrenal glands have a normal appearance. The kidneys show no mass, stones or hydronephrosis. The ureters have normal course and contour. The bladder has a normal contour.. The aorta shows moderate atheromatous plaque without aneurysm. There is no suspicious retroperitoneal adenopathy. Abdominal pelvic fat planes and low pelvic side cesar are well demarcated. There are no inflammatory changes in the right lower quadrant. The appendix has been removed IMPRESSION: Previous bariatric surgery Previous ventral hernia repair Mild hepatomegaly No mass, adenopathy or inflammatory change
[2020-11-15] MEDS ORDERED: amLODIPine 5 MG Tab PO ONE (12:42)
== END 2020-11-15 13:50 | disposition home or self-care (01) ==
LOC: JP.ED 10:20
DX: R10.31 Right lower quadrant pain (principal); R14.3 Flatulence; I10 Essential (primary) hypertension; M19.90 Unspecified osteoarthritis, unspecified site; E11.9 Type 2 diabetes mellitus without complications; E66.9 Obesity, unspecified; Z68.30 Body mass index [BMI] 30.0-30.9, adult; Z91.048 Other nonmedicinal substance allergy status; Z88.8 Allergy status to other drugs, medicaments and biological substances; Z91.040 Latex allergy status; Z88.0 Allergy status to penicillin; Z88.1 Allergy status to other antibiotic agents; Z88.5 Allergy status to narcotic agent; Z79.82 Long term (current) use of aspirin; Z79.899 Other long term (current) drug therapy
CPT/HCPCS: 36415; 74177; 80053; 81001; 85025; 86140; 99284; A9270; Q9967

== ENCOUNTER 2021-03-11 20:36 | Inpatient (IN) | payer MEDICARE ==
[2021-03-11] MEDS ORDERED: Sodium Chloride 0.9% 10 ML Syringe FLUSH PRN (21:12)
[2021-03-11] MEDS ORDERED: Ondansetron 4 MG/2 ML SDV IVPUSH ONE (21:12)
[2021-03-11] MEDS ORDERED: Ondansetron 4 MG/2 ML SDV ONE (21:13)
[2021-03-11] MEDS ORDERED: Sodium Chloride 0.9% 80 ML IV SCH (21:45)
[2021-03-11] MEDS ORDERED: Iopamidol 612 MG/ML 100 ML Bottle IV SCH (21:45)
[2021-03-11] MEDS ORDERED: HYDROmorphone 1 MG/ML Syringe IVPUSH ONE (22:04)
[2021-03-11] MEDS ORDERED: HYDROmorphone 1 MG/ML Syringe ONE (22:07)
--- NOTE | 2021-03-11 22:58 | EDM.PDOC ---
ED HPI GENERAL MEDICAL PROBLEM - General Chief Complaint: Abdominal Pain Stated Complaint: ABD PAIN Time Seen by Provider: 03/11/21 21:11 Source of Information: Reports: Patient History Limitations: Reports: No Limitations - History of Present Illness INITIAL COMMENTS - FREE TEXT/NARRATIVE: Susan is a 70-year-old female who is status post Raquel-en-Y in 2016 who presents to the ED with acute onset of severe periumbilical abdominal pain starting 1700 hrs. tonight. The patient has had nausea but no vomiting. She denies any constipation or diarrhea. She denies any fever or chills. She last ate at 1630 hours. She presents with 10 out of 10 abdominal pain and retching. She has had previous episodes of abdominal pain but they are usually epigastric and not this low. In addition to the gastric bypass, the patient also has had esophageal dilation. She has a history of a saddle pulmonary embolism, lymphoma, uterine and endometrial cancer. Abdomen Pain Score (Numeric/FACES): 10 - Related Data Allergies Allergy/AdvReac Type Severity Reaction Status Date / Time adhesive tape Allergy Blisters Verified 11/15/20 10:38 bupropion HCl Allergy Other Verified 11/15/20 10:38 [From Wellbutrin] latex Allergy Rash Verified 11/15/20 10:38 Penicillins Allergy Rash Verified 11/15/20 10:38 ciprofloxacin [From Cipro] AdvReac Tachycardia Verified 11/15/20 10:38 codeine AdvReac Hallucinati Verified 11/15/20 10:38 ons cyclobenzaprine AdvReac Hallucinati Verified 11/15/20 10:38 ons metformin AdvReac Diarrhea Verified 11/15/20 10:38 dermabond AdvReac Redness Uncoded 11/15/20 10:38 Home Meds: Home Meds Acetaminophen [Tylenol] 650 mg PO Q6H PRN #0 tablet 02/28/17 [Rx] Albuterol [IJD: Albuterol] 2.5 mg INH Q4H PRN 12/01/17 [History] Aspirin [Halfprin] 81 mg PO DAILY 02/22/20 [History] Biotin 10,000 mcg PO DAILY 02/22/20 [History] Calcium Carbonate [Calcium] 500 mg PO DAILY 02/22/20 [History] Cyanocobalamin (Vitamin B-12) [Vitamin B-12] 1,000 mcg PO DAILY 02/22/20 [History] Magnesium 250 mg PO DAILY 11/15/20 [History] Vitamin B Complex with C [Super B Complex With C] 1 tab PO DAILY 11/15/20 [History] amLODIPine [Norvasc] 5 mg PO DAILY 30 Days #30 tab 11/15/20 [Rx] Past Medical History HEENT History: Reports: Cataract, Impaired Vision Cardiovascular History: Reports: Blood Clots/VTE/DVT, High Cholesterol, Hypertension, SOB on Exertion Respiratory History: Reports: Bronchitis, Recurrent, PE, Pneumonia, Recurrent, Sleep Apnea, SOB Gastrointestinal History: Reports: Cholelithiasis, GERD Genitourinary History: Reports: None [employer] History: Reports: Dysfunctional Uterine Bleeding, Musculoskeletal History: Reports: Back Pain, Chronic, Osteoarthritis Endocrine/Metabolic History: Reports: Diabetes, Type II, IDDM, Obesity/BMI 30+ Hematologic History: Reports: Blood Transfusion(s) Other Hematologic History: Coumadin Oncologic (Cancer) History: Reports: Lymphoma, Uterine, Other (See Below) Other Oncologic History: removed lymphs in groin Dermatologic History: Reports: Cellulitis Other Dermatologic History: growth on inner elbow-left.- this was removed. 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 RNY. Female Surgical History: Reports: Section, D&C, Hysterectomy Endocrine Surgical History: Reports: None Musculoskeletal Surgical History: Reports: None Oncologic Surgical History: Reports: None Dermatological Surgical History: Reports: None Social & Family History - Family History Cardiac: Reports: CAD - Tobacco Use Tobacco Use Status *Q: Current Every Day Tobacco User Years of Tobacco use: 50 Packs/Tins Daily: 1.5 - Caffeine Use Caffeine Use: Reports: Coffee, Energy Drinks - Recreational Drug Use Recreational Drug Use: No ED ROS GENERAL - Review of Systems Review Of Systems: See Below Constitutional: Reports: No Symptoms HEENT: Reports: No Symptoms Respiratory: Reports: No Symptoms Cardiovascular: Reports: No Symptoms Endocrine: Reports: No Symptoms GI/Abdominal: Reports: Abdominal Pain (Severe periumbilical abdominal pain), Nausea, Vomiting : Reports: No Symptoms Musculoskeletal: Reports: No Symptoms Skin: Reports: No Symptoms Neurological: Reports: No Symptoms Psychiatric: Reports: No Symptoms Hematologic/Lymphatic: Reports: No Symptoms Immunologic: Reports: No Symptoms ED EXAM, GI/ABD - Physical Exam Exam: See Below Exam Limited By: No Limitations General Appearance: Alert, Severe Distress Throat/Mouth: Normal Inspection, Normal Oropharynx, Normal Voice, No Airway Compromise Head: Normocephalic Neck: Normal Inspection Respiratory/Chest: No Respiratory Distress, Lungs Clear, Normal Breath Sounds Cardiovascular: Normal Peripheral Pulses, Regular Rate, Rhythm, No Murmur, Tachycardia GI/Abdominal Exam: Distended, Guarding (Periumbilical guarding), Rebound, Tender (Severe tenderness in the mid abdomen), Abnormal Bowel Sounds (Markedly diminished bowel sounds) Back Exam: Normal Inspection Extremities: Normal Inspection Neurological: Alert, Oriented, Normal Cognition, No Motor/Sensory Deficits Psychiatric: Normal Affect Skin Exam: Warm, Dry, Pallor Lymphatic: No Adenopathy Course - Vital Signs Last Recorded V/S: Last Vital Signs Temp 35.6 C L 03/11/21 20:57 Pulse 99 03/11/21 20:57 Resp 18 03/11/21 20:57 BP 200/97 H 03/11/21 20:57 Pulse Ox 99 03/11/21 20:57 - Orders/Labs/Meds Orders: Active Orders 24 hr Category Date Time Status Iopamidol [Isovue-300 (61%)] Med 03/11/21 21:45 Active 100 ml IV . DIRECTED Sodium Chloride 0.9% [Normal Saline] 80 ml Med 03/11/21 21:45 Active IV ASDIRECTED Sodium Chloride 0.9% [Saline Flush] Med 03/11/21 21:12 Active 10 ml FLUSH ASDIRECTED PRN Isolation [COMM] Stat Oth 03/11/21 23:05 Ordered Saline Lock Insert [OM.PC] Routine Oth 03/11/21 21:12 Ordered Medication Orders Sodium Chloride (Normal Saline) 80 mls @ 3 mls/sec IV ASDIRECTED DEANNA Last Admin: 03/11/21 22:19 Dose: 3 mls/sec Documented by: TATIANA Iopamidol (Iopamidol 612 Mg/Ml 100 Ml Bottle) 100 ml IV . DIRECTED DEANNA Last Admin: 03/11/21 22:19 Dose: 100 ml Documented by: TATIANA Sodium Chloride (Sodium Chloride 0.9% 10 Ml Syringe) 10 ml FLUSH ASDIRECTED PRN PRN Reason: Keep Vein Open Labs: Laboratory Tests 03/11/21 03/11/21 03/11/21 Range/Units 21:24 21:24 21:50 WBC 10.4 (4.5-11.0) K/uL RBC 4.89 (3.30-5.50) M/uL Hgb 15.2 H (12.0-15.0) g/dL Hct 44.5 (36.0-48.0) % MCV 91 (80-98) fL MCH 31 (27-31) pg MCHC 34 (32-36) % Plt Count 211 (150-400) K/uL Neut % (Auto) 86 H (36-66) % Lymph % (Auto) 9 L (24-44) % Weld % (Auto) 4 (2-6) % Eos % (Auto) 0 L (2-4) % Baso % (Auto) 0 (0-1) % Sodium 144 (140-148) mmol/L Potassium 3.8 (3.6-5.2) mmol/L Chloride 104 (100-108) mmol/L Carbon Dioxide 26 (21-32) mmol/L Anion Gap 14.5 H (5.0-14.0) mmol/L BUN 10 (7-18) mg/dL Creatinine 0.6 (0.6-1.0) mg/dL Est Cr Clr Drug Dosing 65.84 mL/min Estimated GFR (MDRD) > 60 (>60) Glucose 214 H (74-106) mg/dL Lactic Acid (0.4-2.0) mmol/L Calcium 9.1 (8.5-10.1) mg/dL Total Bilirubin 0.7 (0.2-1.0) mg/dL AST 17 (15-37) U/L ALT 39 (12-78) U/L Alkaline Phosphatase 99 (46-116) U/L C-Reactive Protein < 0.05 (0.0-0.3) mg/dL Total Protein 7.0 (6.4-8.2) g/dL Albumin 3.7 (3.4-5.0) g/dL Globulin 3.3 (2.3-3.5) g/dL Albumin/Globulin Ratio 1.1 L (1.2-2.2) Lipase 129 (73-393) U/L Urine Color Yellow (YELLOW) Urine Appearance Clear (CLEAR) Urine pH 7.0 (5.0-8.0) Ur Specific [place] 1.025 (1.008-1.030) Urine Protein Negative (NEGATIVE) mg/dL Urine Glucose (UA) 250 H (NEGATIVE) mg/dL Urine Ketones 40 H (NEGATIVE) mg/dL Urine Occult Blood Trace-intact H (NEGATIVE) Urine Nitrite Negative (NEGATIVE) Urine Bilirubin Negative (NEGATIVE) Urine Urobilinogen 0.2 (0.2-1.0) EU/dL Ur Leukocyte Esterase Negative (NEGATIVE) Urine RBC 0-5 (0-5) Urine WBC Not seen (0-5) Ur Epithelial Cells Not seen Amorphous Sediment Rare Urine Bacteria Few Urine Mucus Not seen Influenza Type A RNA (NEGATIVE) RSV RNA (INAAT) (NEGATIVE) Influenza Type B RNA (NEGATIVE) SARS-CoV-2 RNA (ISAIAS) (NEGATIVE) 03/11/21 03/11/21 Range/Units 23:00 23:05 WBC (4.5-11.0) K/uL RBC (3.30-5.50) M/uL Hgb (12.0-15.0) g/dL Hct (36.0-48.0) % MCV (80-98) fL MCH (27-31) pg MCHC (32-36) % Plt Count (150-400) K/uL Neut % (Auto) (36-66) % Lymph % (Auto) (24-44) % Weld % (Auto) (2-6) % Eos % (Auto) (2-4) % Baso % (Auto) (0-1) % Sodium (140-148) mmol/L Potassium (3.6-5.2) mmol/L Chloride (100-108) mmol/L Carbon Dioxide (21-32) mmol/L Anion Gap (5.0-14.0) mmol/L BUN (7-18) mg/dL Creatinine (0.6-1.0) mg/dL Est Cr Clr Drug Dosing mL/min Estimated GFR (MDRD) (>60) Glucose (74-106) mg/dL Lactic Acid 1.5 (0.4-2.0) mmol/L Calcium (8.5-10.1) mg/dL Total Bilirubin (0.2-1.0) mg/dL AST (15-37) U/L ALT (12-78) U/L Alkaline Phosphatase (46-116) U/L C-Reactive Protein (0.0-0.3) mg/dL Total Protein (6.4-8.2) g/dL Albumin (3.4-5.0) g/dL Globulin (2.3-3.5) g/dL Albumin/Globulin Ratio (1.2-2.2) Lipase (73-393) U/L Urine Color (YELLOW) Urine Appearance (CLEAR) Urine pH (5.0-8.0) Ur Specific [place] (1.008-1.030) Urine Protein (NEGATIVE) mg/dL Urine Glucose (UA) (NEGATIVE) mg/dL Urine Ketones (NEGATIVE) mg/dL Urine Occult Blood (NEGATIVE) Urine Nitrite (NEGATIVE) Urine Bilirubin (NEGATIVE) Urine Urobilinogen (0.2-1.0) EU/dL Ur Leukocyte Esterase (NEGATIVE) Urine RBC (0-5) Urine WBC (0-5) Ur Epithelial Cells Amorphous Sediment Urine Bacteria Urine Mucus Influenza Type A RNA Negative (NEGATIVE) RSV RNA (INAAT) Negative (NEGATIVE) Influenza Type B RNA Negative (NEGATIVE) SARS-CoV-2 RNA (ISAIAS) Negative (NEGATIVE) Meds: Medications Generic Name Dose Route Start Last Admin Trade Name Kelle PRN Reason Stop Dose Admin Sodium Chloride 80 mls @ 3 mls/sec 03/11/21 21:45 03/11/21 22:19 Normal Saline IV 3 mls/sec ASDIRECTED DEANNA Administration Iopamidol 100 ml 03/11/21 21:45 03/11/21 22:19 Iopamidol 612 Mg/Ml 100 Ml Bottle IV 100 ml . DIRECTED DEANNA Administration Sodium Chloride 10 ml 03/11/21 21:12 Sodium Chloride 0.9% 10 Ml Syringe FLUSH ASDIRECTED PRN Keep Vein Open Discontinued Medications Generic Name Dose Route Start Last Admin Trade Name Kelle PRN Reason Stop Dose Admin Hydromorphone HCl 1 mg 03/11/21 22:04 03/11/21 22:11 Hydromorphone 1 Mg/Ml Syringe IVPUSH 03/11/21 22:05 1 mg ONETIME ONE Administration Hydromorphone HCl Confirm 03/11/21 22:07 Hydromorphone 1 Mg/Ml Syringe Administered 03/11/21 22:08 Dose 1 mg .ROUTE .[place] ONE Hydromorphone HCl 0.5 mg 03/11/21 23:44 03/11/21 23:52 Hydromorphone 0.5 Mg/0.5 Ml Syringe IVPUSH 03/11/21 23:45 0.5 mg ONETIME ONE Administration Meropenem 500 mg/ Sodium 50 mls @ 100 mls/hr 03/11/21 23:22 03/11/21 23:40 Chloride IV 03/11/21 23:51 100 mls/hr ONETIME ONE Administration Ondansetron HCl 4 mg 03/11/21 21:12 03/11/21 21:20 Ondansetron 4 Mg/2 Ml Sdv IVPUSH 03/11/21 21:13 4 mg ONETIME ONE Administration Ondansetron HCl Confirm 03/11/21 21:13 Ondansetron 4 Mg/2 Ml Sdv Administered 03/11/21 21:14 Dose 4 mg .ROUTE .[place] ONE - Radiology Interpretation Free Text/Narrative:: I reviewed the images of the CT abdomen and pelvis with contrast as well as the report from [facility]. There is distended small bowel segment of the anterior left mid abdomen with transition points at both ends. This is consistent with closed-loop obstruction. There is circumferential wall thickening and mild surrounding edema raising concerns for ischemia. There is no evidence of bowel infarct or perforation. - Re-Assessments/Exams Free Text/Narrative Re-Assessment/Exam: 03/11/21 22:59 I reviewed the patient's labs showing a normal CBC and comprehensive metabolic panel except for a glucose of 214. Her lipase is normal. Her CRP is unremarkable. Urinalysis is also unremarkable except for glucose greater than 250 and ketones of 40 likely due to the retching. Patient is receiving lactated Ringer's at 250 cc/h, she received Dilaudid 1 mg IV for pain, and received Zofran 4 mg IV for nausea. 03/11/21 22:59 patient reports that she has has not had her Covid vaccines, therefore we will test her for COVID-19 in anticipation that she may require hospitalization and possible surgery. I did review the CT of the abdomen and pelvis with contrast and I am concerned about a volvulus involving the small intestine in the mid gut. I am waiting for the radiologist to review the images and give a final impression. Because of this I also added a venous lactate to the patient's labs. 03/11/21 23:24 I discussed the case with Dr. Ricky Beckett concerning the distended small bowel segment in the anterior left mid abdomen with closed-loop obstruction and circumferential wall thickening worrisome for ischemia. He would like the patient admitted. I have ordered the dose of meropenem 500 mg IV prophylactically. I will discussed the case with Dr. Hua who is the hospitalist forest fire prevention specialist tonight. The plan is for an exploratory laparotomy at 5 AM. 03/12/21 00:02 Covid is negative and the lactic acid is elevated at 1.5. Departure - Departure Time of Disposition: 23:45 Disposition: Admitted As Inpatient 66 Clinical Impression: Acute ischemia of intestine due to obstruction of intestinal vasculature, Small bowel obstruction with strangulation or infarction - Discharge Information Referrals: Jim Rai MD [Primary Care Provider] - Forms: ED Department Discharge Sepsis Event Note (ED) - Evaluation Sepsis Screening Result: No Definite Risk - Focused Exam Vital Signs: Vital Signs Temp Pulse Resp BP Pulse Ox 03/11/21 20:57 35.6 C L 99 18 200/97 H 99 - Problem List & Annotations (1) Acute ischemia of intestine due to obstruction of intestinal vasculature SNOMED Code(s): 922753360 Code(s): K55.059 - ACUTE ISCHEMIA OF INTESTINE, PART AND EXTENT UNSPECIFIED; K56.609 - UNSP INTESTNL OBST, UNSP TO PARTIAL VERSUS COMPLETE OBST Status: Acute Priority: High Current Visit: Yes (2) Small bowel obstruction with strangulation or infarction SNOMED Code(s): 876065921 Code(s): DKN1214 - Status: Acute Priority: High Current Visit: Yes - Problem List Review Problem List Initiated/Reviewed/Updated: Yes - My Orders Last 24 Hours: My Active Orders 03/11/21 21:12 Sodium Chloride 0.9% [Saline Flush] 10 ml FLUSH ASDIRECTED PRN Saline Lock Insert [OM.PC] Routine 03/11/21 21:45 Iopamidol [Isovue-300 (61%)] 100 ml IV . DIRECTED Sodium Chloride 0.9% [Normal Saline] 80 ml IV ASDIRECTED 03/11/21 23:05 Isolation [COMM] Stat - Assessment/Plan Last 24 Hours: My Active Orders 03/11/21 21:12 Sodium Chloride 0.9% [Saline Flush] 10 ml FLUSH ASDIRECTED PRN Saline Lock Insert [OM.PC] Routine 03/11/21 21:45 Iopamidol [Isovue-300 (61%)] 100 ml IV . DIRECTED Sodium Chloride 0.9% [Normal Saline] 80 ml IV ASDIRECTED 03/11/21 23:05 Isolation [COMM] Stat
--- NOTE | 2021-03-11 23:21 | CRLCT ---
Indication: Periumbilical pain Technique: Contrast enhanced axial CT imaging through the abdomen and pelvis. 100 mL Isovue 300 contrast agent was administered intravenously. Sagittal and coronal reconstructions are provided. Comparison: CT abdomen pelvis with contrast 11/15/2020 Findings: There is a distended segment of small bowel in the anterior left mid abdomen with transition points at both ends, consistent with closed loop obstruction. The bowel is distended up to 3.5 cm. There is diffuse circumferential bowel wall thickening involving the distended loop with mild surrounding edema, concerning for ischemia. There is no bowel wall pneumatosis, portal venous air, or pneumoperitoneum. Remainder of the small bowel is normal in caliber. Raquel-en-Y gastric bypass changes are noted. A non colon is unremarkable. The appendix is not visualized, likely absent. Ventral hernia repair mesh is noted in the anterior abdomen. A stable irregular fat density focus with peripheral calcification in the anterior lower abdomen likely represents sequela of prior omental infarct. No significant abnormalities are demonstrated relating to the liver, spleen, pancreas, adrenal glands, and kidneys. Cholecystectomy clips are noted. The portal vein is patent. There is atherosclerosis of the abdominal aorta without underlying aneurysm. There is no abdominal lymphadenopathy. Degenerative changes are noted in the spine. The included lung bases are clear except for minimal scarring. Impression: Distended small bowel segment in the anterior left mid abdomen with transition points at both ends, consistent with closed loop obstruction. Circumferential wall thickening and mild surrounding edema raise concern for ischemia. No evidence bowel infarct or perforation. Dr. Marr was notified via phone call. Please note that all CT scans at this facility use dose modulation, iterative reconstruction, and/or weight-based dosing when appropriate to reduce radiation dose to as low as reasonably achievable. Dictated by Tatum Mays MD @ 03/11/2021 11:18:[address] Tatum Mays @ Mar 11 2021 11:18PM
[2021-03-11] MEDS ORDERED: Meropenem 500 MG in Sodium Chloride 0.9% 50 ML IV ONE (23:22)
[2021-03-11] MEDS ORDERED: HYDROmorphone 0.5 MG/0.5 ML Syringe IVPUSH ONE (23:44)
[2021-03-11 23:47] LABS: CORONAVIRUS COVID-19 NAA NEGATIVE (NEGATIVE)
[2021-03-12] MEDS ORDERED: Ondansetron 4 MG/2 ML SDV IV PRN (00:18)
[2021-03-12] MEDS ORDERED: Sodium Chloride 0.9% 1,000 ML IV SCH (00:30)
[2021-03-12] MEDS ORDERED: Albuterol 0.083% 2.5 MG/3 ML Neb Soln INH PRN (00:32)
[2021-03-12] MEDS: HYDROmorphone/Normal Saline 15 MG/30 ML PCA IV PRN (01:11)
--- NOTE | 2021-03-12 01:37 | HP ---
CHIEF COMPLAINT: Abdominal pain. HISTORY OF PRESENT ILLNESS: A 70-year-old who had a Raquel-en-Y gastric bypass surgery 5 years ago. Started having pain about 5 p.m., nausea. Pain intensified, came into the emergency room. Was noted to have distended small bowel segments in anterior left mid abdomen consistent with closed loop obstruction; circumferential wall thickening and mild surrounding edema raising concern for ischemia. Emergency room physician did contact Dr. Beckett, the patient's surgeon, who wanted the patient admitted, was started on IV meropenem and will be taken to the operating room by Dr. Beckett, was asked to admit the patient prior to this. The patient otherwise denied any other complaints. The patient along with the meropenem has received IV Dilaudid. PAST MEDICAL HISTORY: Raquel-en-Y gastric bypass surgery about 5 years ago. Prior to that had pannus removal. She has also had cholecystectomy and hysterectomy. She has had non- Hodgkin's lymphoma that is in remission after chemotherapy. She had a history of DVT and PE in the past. CURRENT MEDICATIONS: Acetaminophen 650 mg q.6 hours p.r.n., albuterol nebulizer q.4 hours p.r.n., amlodipine 5 mg daily, aspirin 81 mg daily, Biotin 10,000 mcg daily, calcium carbonate 500 mg daily, B12 1000 mcg daily, magnesium 250 mg daily, B complex daily. ALLERGIES: ADHESIVE TAPE, BUPROPION, LATEX, PENICILLIN, CIPRO, CODEINE, CYCLOBENZAPRINE, METFORMIN, DERMABOND. SOCIAL HISTORY: Smokes a pack to pack and half cigarettes a day. Denies any alcohol use. FAMILY HISTORY: Noncontributory. REVIEW OF SYSTEMS: Denies headaches, vision changes, upper respiratory symptoms. No chest pain, shortness of breath or cough. She does have the nausea and did throw up slightly. Does have the upper abdominal pain. Denies any diarrhea, bloody or black stools. No urinary problems reported. No swelling in her legs. No skin problems reported. No neurologic complaints reported. OBJECTIVE: VITAL SIGNS: Weight 71.6 kg, temperature 35.6, pulse 99, blood pressure 200/97, respirations 18, O2 saturation 99% on room air. HEENT: Pharynx, slight dry mucous membranes in her mouth. NECK: Supple. No adenopathy, thyromegaly, JVD, or carotid bruits. LUNGS: Clear. HEART: Regular without murmurs. ABDOMEN: Soft, but did have some distention with pain in the upper abdomen. EXTREMITIES: No edema. SKIN: Negative. NEUROLOGIC: Cranial nerves 2 [id number] grossly intact. LABORATORY DATA: White count 10.4, hemoglobin 15.2, platelets 211,000 with 86% neutrophils, 9% lymphocytes. Sodium 144, potassium 3.8, chloride 104, BUN 10, creatinine 0.6, glucose 214. Lactic acid 1.5. Liver functions were normal. C-reactive protein less than 0.05. Urinalysis showed 250 of sugar, 40 of ketones, but otherwise unremarkable. Influenza, RSV, COVID were all negative. ASSESSMENT: 1. Closed loop obstruction of small intestine, previous gastric bypass surgery. Dr. Beckett and emergency room physician started meropenem, will be doing surgery. To continue with IV fluids and Dilaudid for pain. 2. Hyperglycemia, question diabetes. 3. History of non-Hodgkin's lymphoma, in remission after chemotherapy. 4. History of deep venous thrombosis and pulmonary embolism in the past, previous cholecystectomy, hysterectomy and pannus removal she states. We will admit her inpatient with her pending surgery. Omer Hua MD /[id number]
[2021-03-12] MEDS ORDERED: Naloxone 0.4 MG/ML SDV IV PRN (02:00)
[2021-03-12] MEDS ORDERED: Rocuronium 50 MG/5 ML Vial ONE (04:49)
[2021-03-12] MEDS ORDERED: Glycopyrrolate 0.2 MG/ML 5 ML MDV ONE (04:49)
[2021-03-12] MEDS ORDERED: Ondansetron 4 MG/2 ML SDV ONE (04:49)
[2021-03-12] MEDS ORDERED: Propofol 200 MG/20 ML SDV ONE (04:49)
[2021-03-12] MEDS ORDERED: Neostigmine Methylsulfate 1 MG/ML 5 ML Syringe ONE (04:49)
[2021-03-12] MEDS ORDERED: fentaNYL 250 MCG/5 ML SDV ONE ×2 (04:49→05:56)
[2021-03-12] MEDS ORDERED: Succinylcholine 200 MG/10 ML MDV ONE (04:49)
[2021-03-12] MEDS ORDERED: Dexamethasone 4 MG/ML SDV ONE (04:49)
[2021-03-12] MEDS ORDERED: Lidocaine 1% with EPINEPHrine 1:100,000 50 ML MDV ONE (04:58)
[2021-03-12] MEDS ORDERED: Bupivacaine 0.5% 50 ML MDV ONE (04:58)
[2021-03-12] MEDS ORDERED: Meropenem 500 MG SDV ONE (04:59)
[2021-03-12] MEDS ORDERED: Meropenem 500 MG in Sodium Chloride 0.9% 50 ML IV ONE (05:00)
[2021-03-12] MEDS ORDERED: Lactated Ringers 1,000 ML ONE (05:46)
[2021-03-12] MEDS ORDERED: Ropivacaine 35 ML, dexAMETHasone 8 MG, EPINEPHrine 0.4 MG, Sodium Chloride 0.9% 42.6 ML NERVRT SCH ×4 (06:00)
[2021-03-12] MEDS: Dextrose 5%-Lactated Ringers 1,000 ML IV SCH ×2 (08:59→20:54)
[2021-03-12] MEDS: SCOPOLAMINE PATCH CHECK TOP SCH (08:59)
[2021-03-12] MEDS ORDERED: Metoclopramide 10 MG/2 ML SDV IVPUSH PRN (09:00)
[2021-03-12] MEDS ORDERED: diphenhydrAMINE 50 MG/ML SDV IVPUSH PRN (09:00)
[2021-03-12] MEDS ORDERED: Acetaminophen 500 MG Tab PO PRN (09:00)
[2021-03-12] MEDS ORDERED: Labetalol 20 MG/4 ML Syringe IVPUSH PRN (09:00)
[2021-03-12] MEDS ORDERED: hydrOXYzine HCL 100 MG/2 ML SDV IM PRN (09:00)
[2021-03-12] MEDS ORDERED: Albuterol/Ipratropium 3.0-0.5 MG/3 ML Neb Soln INH PRN (09:00)
[2021-03-12] MEDS: Pantoprazole 40 MG Vial IVPUSH SCH (09:46)
[2021-03-12] MEDS: amLODIPine 5 MG Tab PO SCH (10:27)
[2021-03-12] MEDS: Acetaminophen 500 MG Tab PO SCH ×2 (10:28→20:49)
[2021-03-12] MEDS: Meropenem 500 MG in Sodium Chloride 0.9% 50 ML IV SCH ×2 (10:44→18:36)
[2021-03-12] MEDS ORDERED: Scopolamine 1.5 MG Transdermal Patch TOP SCH (11:00)
[2021-03-12] MEDS: Albuterol/Ipratropium 3.0-0.5 MG/3 ML Neb Soln INH SCH ×3 (11:38→20:56)
[2021-03-12] MEDS: Nicotine 21 MG/24 Hr Patch TRDERM SCH (13:04)
[2021-03-12] MEDS ORDERED: MVI, Adult with Vitamin K 10 ML, Thiamine 200 MG, Zinc/Copper/Manganese/Selenium 1 ML i... IV SCH ×4 (16:00)
[2021-03-13] MEDS: Meropenem 500 MG in Sodium Chloride 0.9% 50 ML IV SCH ×5 (00:06→22:41)
[2021-03-13] MEDS: Acetaminophen 500 MG Tab PO SCH ×3 (01:56→17:55)
[2021-03-13] MEDS: Dextrose 5%-Lactated Ringers 1,000 ML IV SCH ×2 (02:11→09:10)
[2021-03-13] MEDS ORDERED: Iopamidol 612 MG/ML 50 ML SDV PO STA (03:55)
[2021-03-13] MEDS: Albuterol/Ipratropium 3.0-0.5 MG/3 ML Neb Soln INH SCH ×4 (07:21→20:19)
[2021-03-13] MEDS ORDERED: Ondansetron 4 MG Tab.DIS PO PRN (07:45)
[2021-03-13] MEDS: Magnesium Sulfate/Water 2 GM/50 ML BAG IV SCH ×3 (09:15→20:13)
--- NOTE | 2021-03-13 09:16 | CR ---
UGI Limited HISTORY: Gastrointestinal surgery, history of previous Raquel-en-Y FINDINGS: Patient swallowed water-soluble contrast. Upright views of the abdomen show no evidence of extravasation or obstruction. IMPRESSION: Status post gastrointestinal surgery No extravasation or obstruction seen
[2021-03-13] MEDS: Nicotine 21 MG/24 Hr Patch TRDERM SCH (09:18)
[2021-03-13] MEDS: SCOPOLAMINE PATCH CHECK TOP SCH (09:18)
[2021-03-13] MEDS: amLODIPine 5 MG Tab PO SCH (09:19)
[2021-03-13] MEDS: Pantoprazole 40 MG Vial IVPUSH SCH (09:19)
[2021-03-13] MEDS: Potassium Phosphates 15 MMOLE in Sodium Chloride 0.9% 250 ML IV SCH ×3 (09:27→16:51)
--- NOTE | 2021-03-13 14:50 | PN ---
DATE OF SERVICE: 03/13/2021 SUBJECTIVE: Susan is postoperative day 1. Vital signs have been stable. She has sat up in the chair most of the night. On a step-one diet, oral intake 620. Urine output via Luis catheter is 1450. REVIEW OF SYSTEMS: Remainder of review of systems negative for any pertinent positives and negatives. OBJECTIVE: GENERAL: Susan Fleming is a pleasant 70-year-old female. She is alert and orientated. VITAL SIGNS: TPR is 97.6, 91, 18, blood pressure 163/60. HEENT: Negative. NECK: Supple. HEART: Regular rate and rhythm. LUNGS: Clear. ABDOMEN: Dressings dry and intact. Abdominal binder is on. EXTREMITIES: Without peripheral edema. ASSESSMENT: Exploratory laparotomy with small bowel resection for small bowel volvulus. Date of procedure, 03/12/2021. PLAN: 1. Decrease IV to 100 mL per hour. Discontinue cardiac monitoring. 2. May shower. 3. Remove Luis catheter. 4. Step 2 gastric bypass diet with no cereal. 5. Decrease IV to 100 mL per hour. 6. Zofran ODT 4 mg every 4 hours p.r.n. nausea. 7. Magnesium 2 g IV q.6 hours x72 hours. 8. K-Phos 45 millimoles IV 1 time today. 9. Check CBC, CMP, and phos in a.m. 10.Continue use of incentive spirometer. 11.We will evaluate p.r.n. or in a.m. Shauna Villavicencio PA-C /[id number]
[2021-03-13] MEDS ORDERED: MVI, Adult with Vitamin K 10 ML, Thiamine 200 MG, Zinc/Copper/Manganese/Selenium 1 ML i... IV SCH ×4 (16:00)
[2021-03-13] MEDS ORDERED: Magnesium Hydroxide 400 MG/5 ML Susp 30 ML Cup PO ONE (17:00)
[2021-03-13] MEDS ORDERED: Magnesium Hydroxide 400 MG/5 ML Susp 30 ML Cup PO PRN (18:00)
[2021-03-13] MEDS: Bisacodyl 5 MG Tab PO SCH (20:13)
[2021-03-13] MEDS: Docusate Sodium 100 MG Cap PO SCH (20:13)
[2021-03-14] MEDS: HYDROmorphone/Normal Saline 15 MG/30 ML PCA IV PRN (01:03)
[2021-03-14] MEDS: Dextrose 5%-Lactated Ringers 1,000 ML IV SCH (01:06)
[2021-03-14] MEDS: Acetaminophen 500 MG Tab PO SCH ×3 (03:07→17:36)
[2021-03-14] MEDS: Magnesium Sulfate/Water 2 GM/50 ML BAG IV SCH ×4 (03:07→19:33)
[2021-03-14] MEDS: Meropenem 500 MG in Sodium Chloride 0.9% 50 ML IV SCH (04:04)
[2021-03-14] MEDS: Albuterol/Ipratropium 3.0-0.5 MG/3 ML Neb Soln INH SCH ×4 (07:04→20:41)
[2021-03-14] MEDS ORDERED: HYDROmorphone 2 MG Tab PO PRN (07:52)
[2021-03-14] MEDS: Docusate Sodium 100 MG Cap PO SCH ×2 (08:43→20:41)
[2021-03-14] MEDS: Bisacodyl 5 MG Tab PO SCH ×2 (08:43→20:41)
[2021-03-14] MEDS: Nicotine 21 MG/24 Hr Patch TRDERM SCH (08:44)
[2021-03-14] MEDS: Bisacodyl 10 MG Supp RECTAL SCH ×2 (08:44→20:41)
[2021-03-14] MEDS: Pantoprazole 40 MG Delayed-Release Granules 1 Packet PO SCH (08:44)
[2021-03-14] MEDS: amLODIPine 5 MG Tab PO SCH (08:47)
[2021-03-14] MEDS: SCOPOLAMINE PATCH CHECK TOP SCH (08:48)
[2021-03-14] MEDS ORDERED: Cyanocobalamin (Vitamin B12) 1,000 MCG/ML SDV IM ONE (09:00)
[2021-03-14] MEDS: Potassium Phosphates 15 MMOLE in Sodium Chloride 0.9% 250 ML IV SCH ×4 (10:45→17:35)
--- NOTE | 2021-03-14 12:05 | PN ---
DATE OF SERVICE: 03/14/2021 SUBJECTIVE: Susan was started on bowel stimulation yesterday. She has not passed any flatus yet. She remains on a step-2 diet. Oral intake 1155, urine output 2500. She reports her pain is controlled. She has no questions or concerns. She has been up ambulating. OBJECTIVE: GENERAL: Susan is a pleasant 70-year-old female. VITAL SIGNS: TPR is 96.4, 84, 18, blood pressure 138/66. HEENT: Negative. NECK: Supple. HEART: Regular rate and rhythm. LUNGS: Clear. ABDOMEN: Aquacel dressings on. Abdominal binder is on. EXTREMITIES: Without peripheral edema. ASSESSMENT: Exploratory laparotomy with lysis of adhesions: 1. Small bowel resection. 2. Revision of the jejunojejunostomy component of the Raquel-en-Y gastric bypass. 3. Small bowel strictureplasty. 4. Excision of penetrated mass, left anterior abdominal wall. 5. Placement of Interceed mesh x2. POSTOPERATIVE DIAGNOSES: 1. Adhesive small bowel obstruction with segmented hemorrhagic necrosis of Raquel limb, small bowel requiring revision of the jejunojejunostomy component of the Raquel-en-Y gastric bypass. 2. biliopancreatic limb of the small bowel. 3. Peritoneal mass, left mid abdominal wall, 6.5 cm. Date of procedure: 03/12/2021. Surgeon: Blas Beckett MD. PLAN: 1. Discontinue TUFTING CREELER continuous pulse ox. 2. Dilaudid 2 mg 1 to 2 q.4 hours p.r.n. pain. 3. Dulcolax suppositories 1 b.i.d. May stop when the patient has bowel movement. Start step-3 diet after the patient has a bowel movement. 4. K-Phos 60 mmol IV 1 time today. 5. Check CBC, CMP, mag, phos in a.m. 6. We will evaluate p.r.n. or in a.m. Shauna Villavicencio PA-C /[id number]
[2021-03-15] MEDS: Acetaminophen 500 MG Tab PO SCH ×2 (02:41→10:55)
[2021-03-15] MEDS: Magnesium Sulfate/Water 2 GM/50 ML BAG IV SCH ×2 (02:42→09:40)
[2021-03-15] MEDS: Albuterol/Ipratropium 3.0-0.5 MG/3 ML Neb Soln INH SCH ×2 (07:07→12:06)
[2021-03-15 07:42] VITALS: BP 143/66; PULSE 88
[2021-03-15] MEDS: Bisacodyl 5 MG Tab PO SCH ×2 (07:43→08:10)
[2021-03-15] MEDS: Pantoprazole 40 MG Delayed-Release Granules 1 Packet PO SCH (07:43)
[2021-03-15] MEDS: Docusate Sodium 100 MG Cap PO SCH ×2 (07:43→08:10)
[2021-03-15] MEDS: amLODIPine 5 MG Tab PO SCH ×2 (07:44→08:11)
[2021-03-15] MEDS: Bisacodyl 10 MG Supp RECTAL SCH (08:11)
[2021-03-15] MEDS: Nicotine 21 MG/24 Hr Patch TRDERM SCH (08:11)
--- NOTE | 2021-03-15 14:59 | DISCH ---
ADMISSION DIAGNOSIS: Partial small bowel obstruction. DISCHARGE DIAGNOSES: 1. Exploratory laparotomy with lysis of adhesions: a. Small-bowel resection. b. Revision of the jejunojejunostomy component of the Raquel-en-Y gastric bypass. c. Small bowel strictureplasty. d. Excision of penetrated mass, left anterior abdominal wall. e. Placement of Interceed mesh x2. POSTOPERATIVE DIAGNOSES: 1. Adhesive small bowel obstruction with segmented hemorrhagic necrosis of Raquel limb, small bowel requiring revision of the jejunojejunostomy and component of the Raquel-en-Y gastric bypass. 2. 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 3. Preperitoneal mesh left mid abdominal wall, 6.5 cm. 4. Date of procedure: 03/12/2021. Surgeon: Blas Beckett MD. HISTORY: Susan Fleming is a 70-year-old female who presented to the emergency department with severe abdominal pain. After preoperative evaluation and discussion of possible risks and possible complications, she wished to proceed with surgical procedure. HOSPITAL COURSE: Susan had her surgery on 03/12/2021. She had no operative complications. On postoperative day #1, her Luis catheter was discontinued. She was started on a step 2 gastric bypass diet with no cereal. IV rate was decreased. She was given magnesium and K- Phos IV for low magnesium, phosphorus, and potassium on lab values. On postoperative day #2, she was started on bowel stimulation and she did have a bowel movement. SENIOR ART DIRECTOR was discontinued. K-Phos 60 millimoles IV was replaced. On postoperative day #3, Susan was able to be discharged to home. Her pain was managed with Tylenol. She is on a step 3 gastric bypass diet. Vital signs were stable. She received adequate postop instruction. PHYSICAL EXAMINATION: GENERAL: Susan Fleming is a pleasant 70-year-old female. VITAL SIGNS: Height is 5 feet 1 inch, weight is 156 pounds, BMI is 29. TPR is 97.3, 88, 16, blood pressure 143/66. HEENT: Negative. NECK: Supple. HEART: Regular rate and rhythm. LUNGS: Clear. ABDOMEN: Aquacel dressing will be replaced prior to discharge. Abdominal binder is on. EXTREMITIES: Without peripheral edema. DISPOSITION: Discharged to home. CONDITION: Stable and improving. FOLLOWUP: Appointment with Shauna Villavicencio PA-C, 03/22/2021 at 10 a.m. HOME MEDICATIONS: 1. Tylenol Extra Strength 1000 mg every 8 hours p.r.n. pain. 2. She is to resume her home medication of: a. Albuterol inhaler every 4 hours. b. B12 1000 mcg oral daily. c. Biotin 10,000 mcg oral daily. d. Aspirin 81 mg oral daily. e. Calcium carbonate 500 mg daily. f. Vitamin B complex 1 daily. g. Magnesium 250 mg oral daily. h. Amlodipine 5 mg oral daily. DIET: Step 3 gastric bypass diet. Drink 8 to 10 glasses of water a day. ACTIVITY: No lifting greater than 10 pounds for 6 weeks. Other activity: Walk at least 6 times daily inside your home. Driving after discharge: Do not drive for 1 week. May shower. DISCHARGE INSTRUCTIONS: Notify provider if any fever, increased pain, swelling, redness, drainage, nausea, or vomiting. Keep site clean and dry. Wear abdominal binder for 6 weeks and then as tolerated. Take off Aquacel dressing in 3 days. Use incentive spirometer 10 times every hour while awake. /[id number]
--- NOTE | 2021-03-27 12:17 | OR ---
DATE OF PROCEDURE: 03/12/2021 SURGEON: Blas Beckett MD PREOPERATIVE DIAGNOSIS: Probable closed-loop small bowel obstruction. POSTOPERATIVE DIAGNOSIS: Adhesive closed-loop small bowel with segmental hemorrhagic necrosis of portion of Raquel limb small bowel requiring revision of the jejunojejunostomy component of Raquel-en-Y gastric bypass. Separate stricture, biliopancreatic limb secondary to distortion by peritoneal mass beginning in the left medial abdominal wall extending down onto the area around the mid biliopancreatic limb. OPERATIVE PROCEDURES: 1. Exploratory laparotomy with lysis of adhesions and: 2. Small bowel resection (20379). 3. Enterotomy for decompression of proximally distended small bowel (48847). 4. Revision of jejunojejunostomy with Raquel-en-Y gastric bypass (56248). 5. Small bowel stricturoplasty (31859). 6. Excision of peritoneal mass again in the left anterior abdominal wall extending down onto the midportion of biliopancreatic limb (73726). 7. Placement of Interceed mesh x2 to limit recurrent adhesion formation between pelvic and abdominal wall and underlying viscera (42308). ANESTHESIA: General. BRIDGE CLUB MANAGER: Shauna Villavicencio PA-C INDICATIONS FOR PROCEDURE: This is a 70-year-old female presenting with a picture of small- bowel obstruction on CT scan, which appears to have a closed-loop type obstruction, which appeared to primarily involve the Raquel limb of the small bowel. The plan is to proceed with urgent exploration and probable resection of that area with other procedures as indicated based on operative findings. Potential risks of the procedure were reviewed with the patient including bleeding, infection, injury to underlying viscera, problems with recurrent bowel obstruction, leaks from any GI tract closures, as well as possibility of cardiopulmonary, septic, or hemorrhagic complications leading to were discussed, and the patient wishes to proceed. DETAILS OF PROCEDURE: The patient was taken to the operating room and placed in a supine position. After general endotracheal anesthesia was induced, a Luis catheter was inserted, and the abdomen prepped and draped. The patient previously had a nasogastric tube in place. At this point, an upper midline incision was made from the umbilicus roughly a handsbreadth toward the xiphoid and carried down through the full-thickness abdominal wall. Upon entering the peritoneal cavity, loop with obvious adhesion had a segment of small bowel involved with hemorrhagic necrosis. This turned out to be a significant portion of the previous Raquel limb. The bowel was rotated and we made a loop type configuration around an adhesion. This adhesion was then freed up at this point following decompression of the point of obstruction. The involved proximal and distal to the necrosis was then divided with DYLAN stapler as was the underlying mesentery, and a segment of small bowel was delivered from the field. The bowel proximal to this was quite distended despite the nasogastric tube having been placed. A small enterotomy was placed in the proximally divided small bowel, and a large amount of air and fluid evacuated so as to make subsequent anastomosis safer. The Raquel limb components were then reapproximated with internal firing of the Endo-DYLAN 60 mm stapler. Common opening was closed transversely with same stapler. The angles anastomosed were approximated with some 3-0 Vicryl stitch and the mesenteric defect with a 2-0 silk stitch. At this point, the Raquel limb was found to be far too short to be safe or physiologically satisfactory in terms of issues of reflux and such, and now measuring only around 30 cm. Given this, the jejunojejunostomy component of Raquel-en-Y gastric bypass needed to be revised. The 3 components of this anastomosis were then divided with DYLAN faiza as was the underlying mesentery, and the specimen delivered from the field. Initially, the bowel had been the end of the Raquel limb what was anastomosed to what was the proximal end common limb with the same sequence of faiza as outlined previously. Mesenteric closure was likewise the same. The new Raquel limb was mapped out by its coming out further distal to that 2nd anastomosis, additional 80 cm distal of an abundant length of common limb. The biliopancreatic limb was then also inspected. A peritoneal nodule in the left mid abdominal wall was noted to be adherent to the biliopancreatic limb. This was then resected and this measured 6.5 cm in total dimension. This resulted in a significant stricturing of the biliopancreatic limb. Stricturoplasty was then accomplished. There is an enterotomy being placed in the antimesenteric aspect of the bowel at the point of stricture and then applying a 60 mm stapler with one arm in each of the bowel as it was flipped over on itself and connection then accomplished, was closed transversely with a DYLAN purple load. In this case, there was no mesenteric defect. Angles anastomosed were reinforced with 3-0 Vicryl stitch. The end of the biliopancreatic limb was anastomosed to the point of the small bowel again 80 cm distal to the gastrojejunostomy given the patient now had satisfactory length of Raquel limb. The same sequence of faiza and closure was used. The angles anastomosed reinforced with some 3-0 Vicryl stitch and the mesenteric defect closed with 2-0 silk stitch. At this point, the patient was noted to have a very satisfactory common limb measuring around 320 cm, so we are not dealing with significant short bowel syndrome at this point with the total alimentary length of the Raquel limb and the common limb being around 400 cm. The abdomen was irrigated with antibiotic-containing saline solution. Two Interceed meshes were then placed underneath the incision from there down toward the pelvis to limit recurrent adhesion formation between those surfaces and the underlying viscera. Midline fascia was then approximated with #2 Vicryl stitch, the subcutaneous tissue with 2 layers of 3-0 and 4-0 Vicryl stitch, and the skin with faiza. Prior to closure, bilateral transversus abdominis plane blocks had been placed and the incision itself was anesthetized with some 1% lidocaine mixed with Marcaine and the patient was taken to the recovery room in satisfactory condition. Physician operations administrative assistant, Shauna Villavicencio played an essential role in assisting in this case, helping to position the patient, retract structures as needed, as well as suturing and cutting sutures when indicated. Her presence improved patient safety and decreased operative time. Blas Beckett MD /[id number]
== END 2021-03-15 11:30 | disposition home or self-care (01) | DRG 329 ==
LOC: JP.ED 20:36 → JP.MS 03-12 00:18
PROVIDERS: ADMIT Family Medicine; ATTEND Surgery
PROC: 0DB80ZZ Excision of Small Intestine, Open Approach (ICD-10-PCS; principal; 2021-03-12)
PROC: 0DBW0ZZ Excision of Peritoneum, Open Approach (ICD-10-PCS; 2021-03-12)
PROC: 0DBA0ZZ Excision of Jejunum, Open Approach (ICD-10-PCS; 2021-03-12)
PROC: 3E0M05Z Introduction of Adhesion Barrier into Peritoneal Cavity, Open Approach (ICD-10-PCS; 2021-03-12)
DX: K55.1 Chronic vascular disorders of intestine (principal); K95.89 Other complications of other bariatric procedure; K55.021 Focal (segmental) acute infarction of small intestine; I10 Essential (primary) hypertension; K55.059 Acute (reversible) ischemia of intestine, part and extent unspecified; K56.2 Volvulus; G47.30 Sleep apnea, unspecified; K56.50 Intestinal adhesions [bands], unspecified as to partial versus complete obstruction; F17.210 Nicotine dependence, cigarettes, uncomplicated; H54.7 Unspecified visual loss; M19.90 Unspecified osteoarthritis, unspecified site; E11.9 Type 2 diabetes mellitus without complications; Z85.42 Personal history of malignant neoplasm of other parts of uterus; E78.00 Pure hypercholesterolemia, unspecified; Z98.84 Bariatric surgery status; Z20.822 Contact with and (suspected) exposure to COVID-19; Z88.1 Allergy status to other antibiotic agents; K21.9 Gastro-esophageal reflux disease without esophagitis; E66.9 Obesity, unspecified; M54.9 Dorsalgia, unspecified; Z88.8 Allergy status to other drugs, medicaments and biological substances; Z91.048 Other nonmedicinal substance allergy status; G89.29 Other chronic pain; E11.65 Type 2 diabetes mellitus with hyperglycemia; Z90.49 Acquired absence of other specified parts of digestive tract; Z90.710 Acquired absence of both cervix and uterus; Z86.718 Personal history of other venous thrombosis and embolism; Z86.711 Personal history of pulmonary embolism; Z79.82 Long term (current) use of aspirin; Z79.899 Other long term (current) drug therapy; Z88.0 Allergy status to penicillin; Z91.040 Latex allergy status; Z88.5 Allergy status to narcotic agent; Z85.72 Personal history of non-Hodgkin lymphomas; Z68.29 Body mass index [BMI] 29.0-29.9, adult
CPT/HCPCS: 0241U; 36415; 74177; 74240; 80053; 81001; 82728; 82947; 83605; 83690; 83735; 83880; 84100; 85025; 85027; 86140; 88305; 88307; 94640; 94762; 96365; 96375; 96376; 99285; A9270-GY; C9113; J0171; J0330; J1100; J1170; J2020; J2185; J2405; J2704; J2710; J2795; J3010; J3411; J3420; J3475; J3490; J7030; J7050; J7120; J7121; J7620-GY; Q9967

== ENCOUNTER 2021-09-16 19:45 | Emergency (ER) | payer MEDICARE ==
--- NOTE | 2021-09-16 20:49 | EDM.PDOC ---
ED HPI GENERAL MEDICAL PROBLEM - General Chief Complaint: Lower Extremity Injury/Pain Stated Complaint: TWISTED LEFT ANKLE Time Seen by Provider: 09/16/21 20:43 Source of Information: Reports: Patient, Family History Limitations: Reports: No Limitations - History of Present Illness INITIAL COMMENTS - FREE TEXT/NARRATIVE: pt was firing her wood stove and she slipped and ended up with pain in her left ankle. She has slight swelling present. Onset: Today, Other (happened about 1 hour ago. ) Duration: Hour(s): Location: Reports: Lower Extremity, Left Associated Symptoms: Reports: No Other Symptoms Left Ankle Pain Score (Numeric/FACES): 3 - Related Data Allergies Allergy/AdvReac Type Severity Reaction Status Date / Time adhesive tape Allergy Blisters Verified 09/16/21 20:20 bupropion HCl Allergy Other Verified 09/16/21 20:20 [From Wellbutrin] latex Allergy Rash Verified 09/16/21 20:20 Penicillins Allergy Rash Verified 09/16/21 20:20 ciprofloxacin [From Cipro] AdvReac Tachycardia Verified 09/16/21 20:20 codeine AdvReac Hallucinati Verified 09/16/21 20:20 ons cyclobenzaprine AdvReac Hallucinati Verified 09/16/21 20:20 ons metformin AdvReac Diarrhea Verified 09/16/21 20:20 dermabond AdvReac Redness Uncoded 09/16/21 20:20 Home Meds: Home Meds Acetaminophen [Tylenol] 650 mg PO Q6H PRN #0 tablet 02/28/17 [Rx] Albuterol [IJD: Albuterol] 2.5 mg INH Q4H PRN 12/01/17 [History] Aspirin [Halfprin] 81 mg PO DAILY 02/22/20 [History] Biotin 10,000 mcg PO DAILY 02/22/20 [History] Calcium Carbonate [Calcium] 500 mg PO DAILY 02/22/20 [History] Cyanocobalamin (Vitamin B-12) [Vitamin B-12] 1,000 mcg PO DAILY 02/22/20 [History] Magnesium 250 mg PO DAILY 11/15/20 [History] Vitamin B Complex with C [Super B Complex With C] 1 tab PO DAILY 11/15/20 [History] amLODIPine [Norvasc] 5 mg PO DAILY 30 Days #30 tab 11/15/20 [Rx] Acetaminophen [Tylenol Extra Strength] 1,000 mg PO Q8H tablet 03/15/21 [Rx] Past Medical History HEENT History: Reports: Cataract, Impaired Vision Cardiovascular History: Reports: Blood Clots/VTE/DVT, High Cholesterol, Hypertension, SOB on Exertion Respiratory History: Reports: Bronchitis, Recurrent, PE, Pneumonia, Recurrent, Sleep Apnea, SOB Gastrointestinal History: Reports: Cholelithiasis, GERD Genitourinary History: Reports: None SORT SUPERVISOR History: Reports: Dysfunctional Uterine Bleeding, Musculoskeletal History: Reports: Back Pain, Chronic, Osteoarthritis Endocrine/Metabolic History: Reports: Diabetes, Type II, IDDM, Obesity/BMI 30+ Hematologic History: Reports: Blood Transfusion(s) Other Hematologic History: Coumadin Oncologic (Cancer) History: Reports: Lymphoma, Uterine, Other (See Below) Other Oncologic History: removed lymphs in groin Dermatologic History: Reports: Cellulitis Other Dermatologic History: growth on inner elbow-left.- this was removed. 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 RNY. Female Surgical History: Reports: Section, D&C, Hysterectomy Endocrine Surgical History: Reports: None Musculoskeletal Surgical History: Reports: None Oncologic Surgical History: Reports: None Dermatological Surgical History: Reports: None Social & Family History - Family History Family Medical History: No Pertinent Family History Cardiac: Reports: CAD - Tobacco Use Tobacco Use Status *Q: Current Every Day Tobacco User Years of Tobacco use: 50 Packs/Tins Daily: 1 - Caffeine Use Caffeine Use: Reports: Coffee - Recreational Drug Use Recreational Drug Use: No Review of Systems - Review of Systems Review Of Systems: See Below Constitutional: Reports: No Symptoms Eyes: Reports: No Symptoms Ears: Reports: No Symptoms Nose: Reports: No Symptoms Mouth/Throat: Reports: No Symptoms Respiratory: Reports: No Symptoms Cardiovascular: Reports: No Symptoms GI/Abdominal: Reports: No Symptoms Genitourinary: Reports: No Symptoms Musculoskeletal: Reports: Other (pain in the left ankle. ) Skin: Reports: No Symptoms ED EXAM, GENERAL - Physical Exam Exam: See Below Free Text/Narrative:: pt arrived after falling on the ice at home. She now has pain on the left ankle laterally. She has mild swelling. Exam Limited By: No Limitations General Appearance: Alert, Anxious, Moderate Distress Ears: Normal TMs Nose: Normal Inspection Respiratory/Chest: No Respiratory Distress Extremities: Other (pt has slight swelling of the left ankle . She is tender laterally. She has pain when she weight bears. ) Neurological: Alert, Oriented, Normal Cognition Course - Vital Signs Last Recorded V/S: Last Vital Signs Temp 36.9 C 09/16/21 20:18 Pulse 81 09/16/21 20:18 Resp 16 09/16/21 20:18 BP 198/81 H 09/16/21 20:18 Pulse Ox 96 09/16/21 20:18 - Orders/Labs/Meds Orders: Active Orders 24 hr Category Date Time Status Ankle Min 3V Lt [CR] Stat Exams 09/16/21 20:21 Taken - Re-Assessments/Exams Free Text/Narrative Re-Assessment/Exam: 09/16/21 20:52 xray shows a undisplaced fibular fracture Departure - Departure Time of Disposition: 20:53 Disposition: Home, Self-Care 01 Condition: Fair Clinical Impression: Fracture of fibula, left, closed - Discharge Information Referrals: Jim Rai MD [Primary Care Provider] - Forms: ED Department Discharge Care Plan Goals: cam walker. no weight bearing, ortho appt, elevate leg when sitting cool pack over the cam walker tylenol and motrin for pain. Sepsis Event Note (ED) - Evaluation Sepsis Screening Result: No Definite Risk - Focused Exam Vital Signs: Vital Signs Temp Pulse Resp BP Pulse Ox 09/16/21 20:18 36.9 C 81 16 198/81 H 96 09/16/21 20:07 36.9 C 81 16 198/81 H 96 - My Orders Last 24 Hours: My Active Orders 09/16/21 20:21 Ankle Min 3V Lt [CR] Stat - Assessment/Plan Last 24 Hours: My Active Orders 09/16/21 20:21 Ankle Min 3V Lt [CR] Stat
--- NOTE | 2021-09-16 20:53 | CRLCR ---
For Patients: As a result of the Century Cures Act, medical imaging exams and procedure reports are released immediately into your electronic medical record. You may view this report before your referring provider. If you have questions, please contact your health care provider. Indication: Slipped on ice. Ankle injury. Technique: Three views of the left ankle. Comparison: None Findings: Ankle mortise is intact. The talar dome is intact. A fracture of the distal fibula is identified. A plantar calcaneal spur is identified. Impression: Distal fibular fracture mildly displaced Dictated by Isabel Tuttle MD @ 09/16/2021 8:52:44 PM (Electronically Signed)
[2021-09-16 21:08] VITALS: BP 180/79; PULSE 72
== END 2021-09-16 21:18 | disposition home or self-care (01) ==
LOC: JP.ED 19:45
DX: S82.402A Unspecified fracture of shaft of left fibula, initial encounter for closed fracture (principal); E11.9 Type 2 diabetes mellitus without complications; E66.9 Obesity, unspecified; E78.00 Pure hypercholesterolemia, unspecified; I10 Essential (primary) hypertension; K21.9 Gastro-esophageal reflux disease without esophagitis; M19.90 Unspecified osteoarthritis, unspecified site; Z68.30 Body mass index [BMI] 30.0-30.9, adult; Z88.0 Allergy status to penicillin; Z91.048 Other nonmedicinal substance allergy status; Z91.040 Latex allergy status; Z88.1 Allergy status to other antibiotic agents; Z88.8 Allergy status to other drugs, medicaments and biological substances; Z72.0 Tobacco use; X50.1XXA Overexertion from prolonged static or awkward postures, initial encounter
CPT/HCPCS: 73610-LT; 99283-25